=== PATIENT | male | born 1945 | race Caucasian/White ===

== ENCOUNTER → 2017-03-29 | Day surgery (SDC) | payer OTHER ==
[2017-03-23 13:07] VITALS: BMI 26.0
[~2017-03-29] VITALS: Ht 180.3 cm; Wt 87.3 kg
[~2017-03-29] MED LIST: ADVIN25/60 INH; ASPCH81X PO; ATOR-26 PO; EpHEDrine SULFATE 50MG/5ML SYR ONE; LIDOCAINE HCL 2% 2 ML VIAL (20MG/ML) ONE; METO50TA7 PO; MIDAZOLAM HCL 1 MG/ML 2ML VIAL ONE; OLME1TAB11 PO; ONDANSETRON INJ 2 MG/ML 2 ML VIAL IV PRN; PRLSR20 PO; PROPOFOL IV EMULSION 10 MG/ML 20 ML VIAL IV ONE; SODIUM CHLORIDE 0.9% 500ML 500 ML IV ONE
[2017-03-29 08:18] VITALS: Ht 180.3 cm; Wt 87.3 kg
--- NOTE | 2017-03-29 08:29 | Endo History and Physical ---
History & Physical Date of Service: Mar 29, 2017. Chief Complaint: SCREENING FOR COLON CANCER Referring Physician: DR DURHAM History of Present Illness Patient presents for screening colonoscopy. He reports his last examination was between 5 and 10 years ago. He was referred for routine exam. He denies having any symptoms there is no family history of colon cancer no prior history of colonic polyps. Past Surgical History Hx Cardiac Surgery: Yes (HEART CATH-1 STENTS) Hx Internal Defibrillator: No Hx Pacemaker: No Hx Abdominal Surgery: Yes (RT/LEFT INGUINAL HERNIA, UMBILICAL HERNIA) Hx of Implantable Prosthesis: No Hx Post-Op Nausea and Vomiting: No Hx Cancer Surgery: No Hx Thoracic Surgery: No Hx Orthopedic: No Hx Urinary Tract Surgery: No Bilateral inguinal hernia repair Ventral hernia repair Family History None Social History Smoking Status: Former Smoker Hx Substance Use: No Hx Alcohol Use: Yes (DAILY 700ML HARD ALCHOLOL (DOES NOT DRINK ENTIRE BOTTLE)) Allergies Coded Allergies: Sulfa Antibiotics (Verified Allergy, Unknown, TOLD A CHILD TO NOT USE, 03/23/17) Current Medications Reported Home Medications Medications Dose Route/Sig Max Daily Dose Days Date Category Advair Diskus 250/50 60 Dose (Fluticasone Prop/Salmeterol) 1 Ea Aerp 1 Puff INH BID 03/23/17 Reported Aspirin Chewable (Aspirin) 81 Mg Chew 81 Mg PO QAM 03/23/17 Reported Benicar (Olmesartan Medoxomil) 20 Mg Tab 20 Mg PO QAM 03/23/17 Reported Prilosec (Omeprazole) 20 Mg Capcr 20 Mg PO QAM 03/23/17 Reported Toprol-Xl (Metoprolol Succinate) 50 Mg Tabcr 50 Mg PO QAM 03/23/17 Reported Lipitor (Atorvastatin Calcium) 80 Mg Tab 80 Mg PO QAM 03/23/17 Reported Vital Signs Weight (Kilograms): 87.27 Height (Feet): 5 Height (Inches): 11 Date Time Temp Pulse Resp B/P (MAP) Pulse Ox O2 Delivery O2 Flow Rate FiO2 03/29/17 08:20 36.5 70 20 136/82 (100) 94 Room Air Physical Exam General Appearance: no apparent distress Respiratory/Chest: Auscultation: deminished air movement Cardiovascular: Heart Auscultation: RRR Abdomen: Inspection & Palpation: soft Assessment and Plan Patient for routine colorectal cancer screening. We have discussed risks and benefits to include bleeding, infection, perforation, and missed colonic polyps.
--- NOTE | 2017-03-29 08:31 | Discharge Instructions ---
Endoscopy Patient Instructions Date / Procedure(s) Performed Mar 29, 2017. Colonoscopy Allergy Information Coded Allergies: Sulfa Antibiotics (Verified Allergy, Unknown, TOLD A CHILD TO NOT USE, 03/23/17) Discharge Date / Findings Mar 29, 2017. Diverticulosis of the colon Internal and external hemorrhoids Medication Instructions Stopped Medication(s): ASPIRIN -LAST DOSE 03/28/17 Restart Stopped Medication(s): Reported Home Medications Medications Dose Route/Sig Max Daily Dose Days Date Category Advair Diskus 250/50 60 Dose (Fluticasone Prop/Salmeterol) 1 Ea Aerp 1 Puff INH BID 03/23/17 Reported Aspirin Chewable (Aspirin) 81 Mg Chew 81 Mg PO QAM 03/23/17 Reported Benicar (Olmesartan Medoxomil) 20 Mg Tab 20 Mg PO QAM 03/23/17 Reported Prilosec (Omeprazole) 20 Mg Capcr 20 Mg PO QAM 03/23/17 Reported Toprol-Xl (Metoprolol Succinate) 50 Mg Tabcr 50 Mg PO QAM 03/23/17 Reported Lipitor (Atorvastatin Calcium) 80 Mg Tab 80 Mg PO QAM 03/23/17 Reported Provider Instructions Activity Restrictions - No exercising or heavy lifting for 24 hours. - Do not drink alcohol the day of the procedure. - Do not drive a car or operate machinery until the day after the procedure. - Do not make any important decisions or sign important papers in 24 hours after the procedure. Following Day: - Return to full activity which may include returning to work/school. Diet Start your diet with liquids and light foods (jello, soup, juice, toast). Then eat your usual diet if not nauseated. Treatment For Common After Affects For mild abdominal pain, bloating, or excessive gas: - Rest - Eat lightly - Lie on right side Follow-Up Information repeat colonoscopy in 5 years due to suboptimal preparation Daily fiber supplement (fiber gummies) Anesthesia Information What You Should Know You have had a procedure that required some medicine to reduce anxiety and discomfort. This treatment is called moderate sedation. After receiving the treatment, you may be sleepy, but you will be able to breathe on your own. The effects of the treatment may last for several hours. Follow these instructions along with Activity/Diet recommendations noted above: * Do NOT do anything where dizziness or clumsiness would be dangerous. * Rest quietly at home today, then you can be up and about tomorrow. * Have a responsible person stay with you the rest of today. * You may have had an I.V. today. If so, you may take the dressing off later today. Recommendations Call your doctor if: * Trouble breathing * Continuous vomiting for more than 24 hours * Temperature above 101 degrees * Severe abdominal pain or bloating * Pain not relieved by pain medicine ordered * There is increased drainage or redness from any incision * A large amount of rectal bleeding greater than 2-3 tablespoons. (If you had a polyp/s removed or have hemorrhoids, a small amount of blood - from the rectum is to be expected.) * You have any unanswered questions or concerns. IN THE EVENT OF A SERIOUS EMERGENCY, GO TO THE NEAREST EMERGENCY ROOM Your discharge instructions were prepared by provider Dell Knott. Patient Instructions Signature Page Sunil Guthrie Patient (or Guardian) Signature/Date: I have read and understand the instructions given to me by my caregivers. Caregiver/RN/Doctor Signature/Date: The above-named patient and/or guardian has received patient instructions on this date. + Original Patient Signature Page (only) stays with chart. Please make copy for patient.
--- NOTE | 2017-03-29 09:46 | GI REPORT ---
Procedure Date: 03/29/2017 8:22 AM Procedure: Colonoscopy Indications: Screening for colorectal malignant neoplasm Medicines: Monitored Anesthesia Care Complications: No immediate complications. Estimated blood loss: Minimal. Estimated Blood Loss: Estimated blood loss was minimal. Procedure: Pre-Anesthesia Assessment: - Prior to the procedure, a History and Physical was performed, and patient medications, allergies and sensitivities were reviewed. The patient's tolerance of previous anesthesia was reviewed. - The risks and benefits of the procedure and the sedation options and risks were discussed with the patient. All questions were answered and informed consent was obtained. - Patient identification and proposed procedure were verified prior to the procedure by the physician, the nurse and the unix developer. The procedure was verified in the procedure room. - Pre-procedure physical examination revealed no contraindications to sedation. - ASA Grade Assessment: III - A patient with severe systemic disease. - After reviewing the risks and benefits, the patient was deemed in satisfactory condition to undergo the procedure. - The anesthesia plan was to use monitored anesthesia care (MAC). - Immediately prior to administration of medications, the patient was re-assessed for adequacy to receive sedatives. - The heart rate, respiratory rate, oxygen saturations, blood pressure, adequacy of pulmonary ventilation, and response to care were monitored throughout the procedure. - The physical status of the patient was re-assessed after the procedure. After I obtained informed consent, the scope was passed under direct vision. Throughout the procedure, the patient's blood pressure, pulse, and oxygen saturations were monitored continuously. The Scope was introduced through the anus and advanced to the cecum, identified by appendiceal orifice and ileocecal valve. The patient tolerated the procedure well. The colonoscopy was unusually difficult due to multiple diverticula in the colon. Successful completion of the procedure was aided by withdrawing and reinserting the scope, withdrawing the scope and replacing with the pediatric colonoscope, straightening and shortening the scope to obtain bowel loop reduction and applying abdominal pressure. The patient tolerated the procedure well. The quality of the bowel preparation was adequate to identify polyps 6 mm and larger in size. Findings: The perianal and digital rectal examinations were normal. Pertinent negatives include normal sphincter tone. Multiple small and large-mouthed diverticula were found in the entire colon. Internal hemorrhoids were found during retroflexion. The hemorrhoids were mild. The exam was otherwise without abnormality. Impression: - Severe diverticulosis in the entire examined colon. - Internal hemorrhoids. - The examination was otherwise normal. - No specimens collected. Recommendation: - Discharge patient to home (ambulatory). - Advance diet as tolerated today. - Use fiber, for example Citrucel, Fibercon, Konsyl or Metamucil. - Repeat colonoscopy in 5 years for screening purposes. Dell Knott D.O. Dell Knott, 03/29/2017 9:45:39 AM This report has been signed electronically. Note Initiated On: 03/29/2017 8:22 AM I attest to the content of the Intraoperative Record and orders documented therein, exceptions below
--- NOTE | 2017-03-29 09:58 | Anesthesiology Progress Note ---
Anesthesia Post Op Note Date & Time Mar 29, 2017 at 09:58 Vital Signs Pain Intensity: 0 Vital Signs Past 12 Hours Date Time Temp Pulse Resp B/P (MAP) Pulse Ox O2 Delivery O2 Flow Rate FiO2 03/29/17 09:41 72 16 110/67 (81) 96 Room Air 03/29/17 08:20 36.5 70 20 136/82 (100) 94 Room Air Notes Mental Status: alert / awake / arousable, participated in evaluation Pt Amnestic to Procedure: Yes Nausea / Vomiting: adequately controlled Pain: adequately controlled Airway Patency, RR, SpO2: stable & adequate BP & HR: stable & adequate Hydration State: stable & adequate Anesthetic Complications: no major complications apparent
[2017-03-29 10:11] VITALS: BP 126/84; PULSE 60; O2SAT 95
== END | disposition home or self-care (01) ==
LOC: C.GI 07:54
PROVIDERS: ATTEND Internal Medicine Gastroenterology
DX: Z12.11 Encounter for screening for malignant neoplasm of colon (principal); K57.90 Diverticulosis of intestine, part unspecified, without perforation or abscess without bleeding; K64.8 Other hemorrhoids; I10 Essential (primary) hypertension; I25.2 Old myocardial infarction; Z68.26 Body mass index [BMI] 26.0-26.9, adult; Z98.890 Other specified postprocedural states; Z87.891 Personal history of nicotine dependence; Z88.2 Allergy status to sulfonamides; Z79.899 Other long term (current) drug therapy

== ENCOUNTER 2019-08-18 16:04 | Inpatient (IN) ==
[2019-08-18] MEDS ORDERED: SODIUM CHLORIDE 0.9% 500 ML IV ONE (16:29)
[2019-08-18] MEDS ORDERED: methylPREDNISolone 125 MG/2 ML VIAL IV STA (16:32)
[2019-08-18] MEDS ORDERED: ALBUT/IPRATROP 3MG/0.5MG NEB 3 ML VIAL NEB STA ×2 (16:32→23:22)
--- NOTE | 2019-08-18 16:40 | Emergency Department Note ---
ED Provider Note NAME: PRISCILA COCHRAN AGE: 74 SEX: M ARRIVES VIA: Ambulance INFORMANT: [Patient] and ED PROVIDER(S): [Priscila Daley MD] CHIEF COMPLAINT: Shortness of breath IMPRESSION: Bilateral pulmonary emboli Elevated troponin Hypoxia PLAN: Disposition: Admitted Condition: Guarded MEDICAL DECISION MAKING: The patient is a 74-year-old male that presented with shortness of breath and hypoxia. 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 Patient had 3 NG tube. He had several days in the ICU. He had increasing oxygen requirements and was noted to be as low as 83% at his rehab nursing facility. The patient had increased work of breathing on physical examination. He had a full sepsis and cardiopulmonary work-up performed. The patient was given a DuoNeb and Solu-Medrol due to his COPD history. Supplemental oxygen was applied. He had a chest x-ray performed and this was concerning for bibasilar infiltrates. Blood cultures and broad- spectrum antibiotics were initiated. The patient had a mildly elevated troponin as well. ECG did not show any acute ischemic change. The patient was sent for CT imaging due to his increased work of breathing and concerns with a recent hospitalization. This revealed bilateral pulmonary emboli. IV heparin was discussed with the patient and and ordered. Consultation was made with Dr. Burroughs of the hospitalist service. The patient was evaluated in the ER and admitted for further treatment. Triage Nursing notes reviewed and agree them. [Additional history obtained from] the patient's Vital Signs: reviewed and remarkable for [no significant abnormalities] Differential diagnosis: Reactive airway disease, pneumonia, pneumothorax, COPD, CHF, infections, cardiac ischemia, pulmonary embolism, musculoskeletal, gastrointestinal, as well as other pathologies. ER treatment provided: Normal saline hydration Supplemental oxygen DuoNeb Solu-Medrol IV IV vancomycin IV Zosyn IV heparin drip Repacking and dressing of abdominal wound Diagnostics interpreted by me: ECG: Rate: 93 Rhythm: Normal sinus rhythm with sinus arrhythmia [place]: Normal QRS: Right bundle branch block present ST segements: No ST elevation or depression Other: No PVCs Cardiac Monitoring: Cardiac monitoring ordered: The patient was placed on continuous cardiac monitoring and observed. It revealed a normal sinus rhythm at 75 without ectopy or evidence of dysrhythmia. Laboratory studies: [See below] mild leukocytosis and elevated troponin. Negative flu testing. Blood cultures pending. Imaging studies: Chest x-ray concerning for bibasilar infiltrate. CT imaging revealed bilateral pulmonary emboli Consultation(s): Dr. Destiny Burroughs of the [facility] Hospitalist service. HPI: The patient is a 74 year old male who presents to the Emergency Room with complaints of shortness of breath and dyspnea. This started 2 days ago and is worsening. The patient also notes the following associated symptoms, mild cough. The patient has been increasing his oxygen for relieving factors. Current pain is rated as 0/10. 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 He notes having several days in the ICU as well as 3 separate NG tube placement. The patient's oxygen requirements and increased work of breathing developed over the last 2 days. He does have a history of COPD. Pt denies LOC, headache, fevers, chills, diaphoresis, visual changes, neck pain, chest pain, nausea, vomiting, abdominal pain, back pain, melena, hematochezia, urinary symptoms, numbness, weakness, lymphadenopathy, rash, or other complaints. ROS: See above HPI for pertinent positives & negatives. A total of [10] systems reviewed and were otherwise negative. PAST MEDICAL HISTORY:COPD PAST SURGICAL HISTORY:Bowel resection, [place] FAMILY HISTORY:[See Below] SOCIAL HISTORY: HOME MEDICATIONS:[See Below] ALLERGIES:[See Below] VITALS:[See Below] PHYSICAL EXAMINATION: GENERAL: Awake, alert, dyspneic -appearing, in no distress HENT: Normocephalic, atraumatic. Oropharynx unremarkable. EYES: Normal conjunctiva. Sclera non-icteric. NECK: Inspection normal. Non-tender. Supple. No nuchal rigidity. FROM. No masses. RESPIRATORY: Clear to auscultation. No wheezes. No rales. Increased respiratory effort. CARDIAC: Normal rate. Normal rhythm. No murmurs. No rubs. Extremities warm and well perfused. Pulses equal. No JVD. GI: Soft, non-distended. No tenderness to palpation. No rebound or guarding. No masses. There is an midline incision present. Open packed areas present. No purulent drainage or surrounding erythema. RECTAL: Deferred. MUSCULOSKELETAL: Atraumatic. Chest examination reveals no tenderness. The back is symmetrical on inspection without obvious abnormality. There is no CVA tenderness to palpation. No joint edema. LOWER EXTREMITIES: Calves are equal size bilaterally and non-tender. No edema. No discoloration. NEURO: Normal sensorium. No sensory or motor deficits noted. SKIN: No rash or jaundice noted. ED COURSE: Procedures: [none] [Critical Care:] I have personally spent greater than 45 minutes of critical care time in the direct management of this patient. This includes bedside care, interpretation of diagnostic studies, and testing, discussion with consultants, patient, and family members, and other required patient management activities. This 45 min utes is in excess of all separately billable procedures. Impression & Plan Pulmonary embolism, Hypoxia, Elevated troponin I level, Leukocytosis Past Med/Surg History Social History Preferred Language: [place] Communication Ability: Effective Beliefs That Will Affect Care: None Current Living Situation: Spouse Feels Safe at Home: Yes Smoking Status: Former smoker Second Hand Exposure: No ; Hx Alcohol Use: Yes Alcohol type: wine Hx Substance Use: No Results & Data Vital Signs Vital Signs - 24 hr 08/18/19 16:18 08/18/19 16:31 08/18/19 16:34 Temperature 36.8 C Temperature Source Oral Pulse Rate 105 H Pulse Rate [Right Radial] Respiratory Rate 18 Respiratory Effort / Characteristics Spontaneous Labored Short of Breath SOB on Exertion Respiratory Depth Shallow Respiratory Pattern Blood Pressure 131/83 Blood Pressure [Left Arm] Blood Pressure Mean 99 Blood Pressure Mean [Left Arm] Blood Pressure Position Lying Blood Pressure Position [Left Arm] Pulse Oximetry 95 Oxygen Delivery Method Nasal Cannula Nasal Cannula Nasal Cannula Oxygen Flow Rate 6 6 Sepsis Recent Fever Within 48 Hours No Sepsis Action Taken by Nursing No Action Required Oxygen Flow Rate - Titration 6 08/18/19 16:54 08/18/19 17:59 Temperature Temperature Source Pulse Rate Pulse Rate [Right Radial] 101 H 92 H Respiratory Rate 22 18 Respiratory Effort / Characteristics Spontaneous Non-Labored Spontaneous Respiratory Depth Normal Respiratory Pattern Regular Blood Pressure Blood Pressure [Left Arm] 157/84 H Blood Pressure Mean Blood Pressure Mean [Left Arm] 108 Blood Pressure Position Blood Pressure Position [Left Arm] Lying Pulse Oximetry 88 L 95 Oxygen Delivery Method Nasal Cannula Nasal Cannula Oxygen Flow Rate 5 4 Sepsis Recent Fever Within 48 Hours Sepsis Action Taken by Nursing Oxygen Flow Rate - Titration Laboratory Data Result diagrams: 08/18/19 16:53 08/18/19 16:53 Lab Results 08/18/19 08/18/19 08/18/19 Range/Units 16:53 16:53 16:53 WBC 12.34 H (4.8-10.8) K/uL RBC 3.84 L (4.7-6.1) M/uL Hgb 12.3 L (14.0-18.0) g/dL Hct 38.2 L (42-52) % MCV 99.5 (80-100) fL MCH 32.0 (25-34) pg MCHC 32.2 (32-36) g/dL RDW Std Deviation 50.9 H (36.4-46.3) fL RDW Coeff of Beata 14.2 (11.5-14.5) % Plt Count 368 (130-400) K/uL MPV 11.0 H (7.4-10.4) fL Immature Gran % (Auto) 0.3 % Neut % (Auto) 68.9 % Lymph % (Auto) 16.5 % [place] % (Auto) 8.2 % Eos % (Auto) 5.7 % Baso % (Auto) 0.4 % Immature Gran # (Auto) 0.04 H (0.00-0.02) K/uL Neut # (Auto) 8.51 H (1.4-6.5) K/uL Lymph # (Auto) 2.03 (1.2-3.4) K/uL [place] # (Auto) 1.01 H (0.11-0.59) K/uL Eos # (Auto) 0.70 H (0-0.5) K/uL Baso # (Auto) 0.05 (0-0.2) K/uL PT 11.8 (9.0-12.0) Seconds INR 1.1 (0.9-1.1) APTT 25.1 (21.0-31.0) Seconds PTT Ratio 0.9 Sodium (136-145) mmol/L Potassium (3.5-5.1) mmol/L Chloride (98-107) mmol/L Carbon Dioxide (21-32) mmol/L Anion Gap (3-11) BUN (7-18) mg/dl Creatinine (0.6-1.4) mg/dl Est Cr Clr Drug Dosing ml/min Est GFR ( Amer) Est GFR (Non-Af Amer) BUN/Creatinine Ratio (10-20) Glucose (70-99) mg/dl Lactate (0.4-2.0) mmol/L Calcium (8.5-10.1) mg/dl Magnesium (1.8-2.4) mg/dl Total Bilirubin (0.2-1) mg/dl AST (15-37) U/L ALT (12-78) U/L Alkaline Phosphatase (45-117) U/L Troponin I (0-0.045) ng/ml NT-Pro-B Natriuret Pep (0-900) pg/ml Total Protein (6.4-8.2) gm/dl Albumin (3.4-5.0) gm/dl Globulin (2.5-4.0) gm/dl Albumin/Globulin Ratio (0.9-2) Procalcitonin < 0.05 (0-0.5) ng/ml Influenza Type A (PCR) (Neg) Influenza Type B (PCR) (Neg) 08/18/19 08/18/19 08/18/19 Range/Units 16:53 16:53 Unknown WBC (4.8-10.8) K/uL RBC (4.7-6.1) M/uL Hgb (14.0-18.0) g/dL Hct (42-52) % MCV (80-100) fL MCH (25-34) pg MCHC (32-36) g/dL RDW Std Deviation (36.4-46.3) fL RDW Coeff of Beata (11.5-14.5) % Plt Count (130-400) K/uL MPV (7.4-10.4) fL Immature Gran % (Auto) % Neut % (Auto) % Lymph % (Auto) % [place] % (Auto) % Eos % (Auto) % Baso % (Auto) % Immature Gran # (Auto) (0.00-0.02) K/uL Neut # (Auto) (1.4-6.5) K/uL Lymph # (Auto) (1.2-3.4) K/uL [place] # (Auto) (0.11-0.59) K/uL Eos # (Auto) (0-0.5) K/uL Baso # (Auto) (0-0.2) K/uL PT (9.0-12.0) Seconds INR (0.9-1.1) APTT (21.0-31.0) Seconds PTT Ratio Sodium 143 (136-145) mmol/L Potassium 3.5 (3.5-5.1) mmol/L Chloride 110 H (98-107) mmol/L Carbon Dioxide 28 (21-32) mmol/L Anion Gap 5.0 (3-11) BUN 12 (7-18) mg/dl Creatinine 0.83 (0.6-1.4) mg/dl Est Cr Clr Drug Dosing 85.7 ml/min Est GFR ( Amer) 101.9 Est GFR (Non-Af Amer) 87.9 BUN/Creatinine Ratio 14.5 (10-20) Glucose 101 H (70-99) mg/dl Lactate 0.9 (0.4-2.0) mmol/L Calcium 8.5 (8.5-10.1) mg/dl Magnesium 2.0 (1.8-2.4) mg/dl Total Bilirubin 0.6 (0.2-1) mg/dl AST 26 (15-37) U/L ALT 49 (12-78) U/L Alkaline Phosphatase 135 H (45-117) U/L Troponin I 0.229 H* (0-0.045) ng/ml NT-Pro-B Natriuret Pep 536 (0-900) pg/ml Total Protein 7.4 (6.4-8.2) gm/dl Albumin 2.5 L (3.4-5.0) gm/dl Globulin 4.9 H (2.5-4.0) gm/dl Albumin/Globulin Ratio 0.5 L (0.9-2) Procalcitonin (0-0.5) ng/ml Influenza Type A (PCR) Neg for Influ A (Neg) Influenza Type B (PCR) Neg for Influ B (Neg) Administered Medications Vancomycin HCl 1,750 mg/ (Sodium Chloride) 535 mls @ 200 mls/hr IV NOW ONE Stop: 08/18/19 20:16 Last Admin: 08/18/19 18:38 Dose: 200 mls/hr Documented by: [id number] Heparin Sodium/Dextrose (Heparin Sodium/Dextrose) 25,000 units in 500 mls @ 0.02 mls/hr IV .Q24H [facility]; Protocol Stop: 09/17/19 18:14 Last Admin: 08/18/19 18:40 Dose: 1,400 units/hr, 28 mls/hr Documented by: [id number] Cosigned by: [id number] Ioversol (Optiray 320 125ml) 119 ml IV ONCE PRN PRN Reason: Interaction Checking Stop: 08/22/19 17:47 Last Admin: 08/18/19 17:49 Dose: 119 ml Documented by: [id number] Discontinued Medications Albuterol (Duoneb) 3 ml NEB NOW STA Stop: 08/18/19 16:33 Last Admin: 08/18/19 16:51 Dose: 3 ml Documented by: [id number] Heparin Sodium/Dextrose () 1 ea N/A NOW STA; Protocol Stop: 08/18/19 18:14 Last Admin: 08/18/19 18:40 Dose: 1 ea Documented by: [id number] Sodium Chloride (Nss) 500 mls @ 999 mls/hr IV .Q31M ONE Stop: 08/18/19 16:59 Last Infusion: 08/18/19 17:40 Dose: 0 mls/hr Documented by: [id number] Admin: 08/18/19 17:00 Dose: 999 mls/hr Documented by: [id number] Piperacillin Sod/Tazobactam Sod (Zosyn) 4.5 gm in 120 mls @ 240 mls/hr IV NOW ONE Stop: 08/18/19 18:05 Last Infusion: 08/18/19 18:45 Dose: 0 mls/hr Documented by: [id number] Admin: 08/18/19 18:13 Dose: 240 mls/hr Documented by: [id number] Methylprednisolone (Solumedrol) 125 mg IV NOW STA Stop: 08/18/19 16:33 Last Admin: 08/18/19 17:24 Dose: 125 mg Documented by: [id number] Discharge Plan Visit Data Chief Complaint: Shortness of Breath/Dyspnea Stated Complaint: SOB ED Provider: Priscila Daley Discharge Problem: Pulmonary embolism, Hypoxia, Elevated troponin I level, Leukocytosis Forms Stand Alone Forms: My [employer] Prescriptions Prescriptions: No Action atorvastatin [Lipitor] 80 mg tablet 80 mg PO HS RF: 0 metoprolol succinate [Toprol XL] 50 mg tablet extended release 24 hr 50 mg PO QAM RF: 0 aspirin 81 mg Tablet,Delayed Release (Dr/Ec) 81 mg PO QAM RF: 0 omeprazole 20 mg capsule,delayed release(DR/EC) 20 mg PO QAM RF: 0 olmesartan [Benicar] 20 mg tablet 20 mg PO QAM RF: 0 Anoro Ellipta 62.5-25 mcg/actuation blister with device 1 inh INHALATION QAM RF: 0 acetaminophen 325 mg Tablet 650 mg PO QID PRN (Reason: Pain) RF: 0 piperacillin-tazobactam [Zosyn] 4.5 gram Recon Soln 4.5 g IV TID RF: 0 albuterol sulfate 90 mcg/actuation Hfa Aerosol Inhaler 2 puff INHALATION Q6 PRN (Reason: Shortness Of Breath Or Wheezing) RF: 0 sodium chloride 0.9 % (flush) Syringe 10 ml IV Q8H RF: 0 heparin lock flush (porcine) 100 unit/mL Solution 0 unit IV Q8 RF: 0
--- NOTE | 2019-08-18 16:54 | XRay Report ---
XR chest 1V portable CLINICAL HISTORY: SEPSIS dyspnea COMPARISON STUDY: 07/19/2019 FINDINGS: PICC catheter placed in the right superior vena cava. No evidence for pneumothorax. Bibasilar atelectatic change. Emphysematous change. IMPRESSION: 1. Central catheter placed in the superior vena cava. No evidence for pneumothorax. Bibasilar atelect atic and/or minimal infiltrative change. ACT 112: Negative or not required by law. The above report was generated using voice recognition software. It may contain grammatical, syntax or spelling errors. Electronically signed by: Nitin Hill M.D. 08/18/2019 4:52 PM
[2019-08-18 17:01] LABS: Basophils # (auto) 0.05 K/uL (0-0.2); Basophils % (auto) 0.4 %; Eosinophils % (auto) 5.7 %; Hematocrit (blood only) 38.2 % (42-52); Hemoglobin 12.3 g/dL (14.0-18.0); Immature Granulocytes # (auto) 0.04 K/uL (0.00-0.02); Immature Granulocytes % (auto) 0.3 %; Lymphocytes # (auto) 2.03 K/uL (1.2-3.4); Lymphocytes % (auto) 16.5 %; Mean Corpuscular Hgb Conc 32.2 g/dL (32-36); Mean Corpuscular Volume 99.5 fL (80-100); Monocytes # (auto) 1.01 K/uL (0.11-0.59); Monocytes % (auto) 8.2 %; Neutrophils # (auto) 8.51 K/uL (1.4-6.5); Neutrophils % (auto) 68.9 %; Platelet Count 368 K/uL (130-400); RDW Coefficient of Variation 14.2 % (11.5-14.5); RDW Standard Deviation 50.9 fL (36.4-46.3); Red Blood Count 3.84 M/uL (4.7-6.1); White Blood Count 12.34 K/uL (4.8-10.8)
[2019-08-18 17:11] LABS: INR 1.1 (0.9-1.1); Partial Thromboplastin Ratio 0.9; Partial Thromboplastin Time 25.1 Seconds (21.0-31.0); Prothrombin Time 11.8 Seconds (9.0-12.0)
[2019-08-18 17:19] LABS: Albumin Level 2.5 gm/dl (3.4-5.0); BUN Creatinine Ratio 14.5 (10-20); Calcium 8.5 mg/dl (8.5-10.1); Creatinine Clr Calc Pharmacy 85.7 ml/min; Est GFR (African American) 101.9; Est GFR (Non-African American) 87.9; Potassium 3.5 mmol/L (3.5-5.1)
[2019-08-18 17:29] LABS: Albumin Globulin Ratio 0.5 (0.9-2); Bilirubin,Total 0.6 mg/dl (0.2-1); Globulin 4.9 gm/dl (2.5-4.0); Total Protein 7.4 gm/dl (6.4-8.2); Troponin I 0.229 ng/ml (0-0.045)
[2019-08-18] MEDS ORDERED: VANCOMYCIN CONSULT ACTIVE PRN (17:36)
[2019-08-18] MEDS ORDERED: VANCOMYCIN HCL 1,750 MG in SODIUM CHLORIDE 0.9% 500 ML IV ONE (17:36)
[2019-08-18] MEDS ORDERED: PIPERACILL/TAZOBAC CONSULT ACTIVE PRN ×2 (17:36→20:24)
[2019-08-18] MEDS ORDERED: PIPERACILLIN/TAZOBACTAM 4.5 GM/120 ML BAG IV ONE (17:36)
[2019-08-18 17:39] LABS: Influenza A virus by PCR Neg for Influ A (Neg); Influenza B virus by PCR Neg for Influ B (Neg)
[2019-08-18] MEDS ORDERED: OPTIRAY 320 125ml IV PRN (17:48)
--- NOTE | 2019-08-18 18:02 | CT Scan Report ---
CT angio chest PE protocol CT DOSE: 393.73 mGy.cm HISTORY: Dyspnea SOB, hypoxia, recent surg x2, ICU stay. Hi pretest TECHNIQUE: Multiaxial CT images of the chest were performed following the intravenous administration of contrast to evaluate the pulmonary arteries. Maximal intensity projection images were also obtaine d. A dose lowering technique was utilized adhering to the principles of ALARA. COMPARISON STUDY: None. FINDINGS: The thoracic aorta shows mild ectasia. The root of the aorta is slightly prominent at 4.1 c m. There are bilateral pulmonary emboli. These involve the lower lobe distributions bilaterally and to a lesser extent left upper lobe. There are bibasilar atelectatic and/or infiltrative changes. Emphysematous change is present. Mid and upper lungs are considered clear. There is no evidence for main or central pulmonary embolus. There is involvement of the head and prox imal left lower lobe as well as left upper lobe pulmonary arteries. IMPRESSION: 1. The study is positive for bilateral acute pulmonary emboli. 2. Emphysematous change. 3. Bibasilar atelectatic/infiltrative change. ACT 112: Negative or not required by law. The above report was generated using voice recognition software. It may contain grammatical, syntax or spelling errors. Electronically signed by: Nitin Hill M.D. 08/18/2019 6:01 PM
[2019-08-18] MEDS ORDERED: HEPARIN SODIUM/DEXTROSE 25,000 UNITS/500 ML BAG IV SCH (18:15)
--- NOTE | 2019-08-18 19:46 | History & Physical Report ---
Date of Service August 18, 2019 Assessment & Plan (1) Pulmonary embolism: Bilateral PE after prolonged hospitalization and major abdominal surgery with complications. Heparin drip. Supportive care with oxygen. (2) Hypoxia: Secondary to bilateral PEs. CT reveals atelectatic versus infiltrative changes at the bases bilaterally. As the patient has been on broad-spectrum antibiotics recently and with recent abdominal surgery where he is frequently splinting and not moving much, suspect this is more atelectatic. Patient has been afebrile and developed a nonproductive cough just today. Do not suspect pneumonia, but will cover broadly upfront with the level of hypoxia that is present. Vancomycin will be added to Zosyn which is on board for recent treatment of peritonitis. Zosyn will be on board until 08/30 per ID at [facility]. Pharmacy is aware. (3) Elevated troponin I level: Likely demand ischemia in the setting of bilateral PE. EKG reveals sinus rhythm 93 with sinus arrhythmia and a right bundle branch block which is chronic. No evidence of acute ischemia and he denies chest pain. Will obtain echo to rule out acute wall motion abnormality. (4) Post-operative state: Recent complex operations to abdomen complicated by peritonitis infection. 2 open wounds remain in his vertical abdominal incision. These do not appear infected superficially. Wounds require daily packing with gauze. Blood cultures are pending. Again patient is afebrile and does not appear infectious at this time. He is not septic. Continue Zosyn per ID recommendations until 08/30. (5) COPD (chronic obstructive pulmonary disease): Known history of COPD, not in exacerbation. Moving air well on exam. Continue home inhalers. (6) CAD (coronary artery disease): Known history of coronary disease status post PCI. Stable and without chest pain. Suspect demand ischemia causing elevated troponin from pulmonary embolus. Will trend cardiac enzymes overnight. Continue medical management with baby aspirin, Lipitor 80 mg nightly, Toprol-XL 50 mg p.o. every morning, on losartan 20 mg p.o. every morning. (7) DVT prophylaxis: Heparin drip Full code [facility]position-[facility] (8) H/O inguinal hernia repair: History of Present Illness Chief Complaint: Shortness of breath worsening hypoxia Primary Care Provider: Delmar Alberto MD 74-year-old man recently operated on presented to [facility] ER with worsening shortness of breath and hypoxia. The patient was at [facility] recovering from a complicated abdominal surgery and 1 month at [facility]. 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 He was taken to the OR emergently for an exploratory laparotomy, ileocecal. 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 Postoperatively he developed an ileus and on 07/27 he underwent GG challenge, which showed ongoing dilated loops of small bowel. A repeat repeat CT of the abdomen pelvis on two 07/28 showed concern for early small bowel obstruction and persistent dilation of the small bowel. He was started on TPN. He was taken back to the OR on 08/03 for an exploratory laparotomy, lysis of adhesions and decompressive enterotomy. Postoperatively he developed acute hypoxic respiratory failure and hypotension was transferred to the ICU for close monitoring. He briefly required low-dose phenylephrine and was found to be RSV positive. He was stabilized and transferred back to the floor on . On 08/04 a rapid response was called secondary to altered mental status and hypoxia. He was transferred back to the ICU and placed on high flow nasal cannula. His respiratory status improved and he was weaned to 1 L nasal cannula. He had a return of bowel function and slowly was transitioned to a regular diet coming off of TPN. He developed a surgical wound infection at his incision site and the wound was left open to allow drainage and packed daily. He was evaluated for peritonitis and Zosyn IV was recommended until 08/30 by i nfectious disease. Rehabilitation was recommended and he was discharged on August 14 to [facility] here in [place]. Since that time he is required increasing amounts of oxygen and work-up this evening with a CT PE revealed evidence of a pulmonary embolus that is bilateral. He has no pain or swelling in his legs. He denies any chest pain. He is reporting some nonproductive cough with occasional production of sputum. He denies any fevers or chills. He denies any GI symptoms. He has no excessive pain in his abdomen. Allergies Allergy/AdvReac Type Severity Reaction Status Date / Time Sulfa (Sulfonamide Allergy Unknown TOLD A Verified 08/18/19 17:05 Antibiotics) CHILD TO NOT USE Home Medications Home Medications Medication Instructions Recorded Confirmed Type aspirin 81 mg PO QAM 07/19/19 08/18/19 History atorvastatin [Lipitor] 80 mg PO HS 07/19/19 08/18/19 History metoprolol succinate [Toprol XL] 50 mg PO QAM 07/19/19 08/18/19 History olmesartan [Benicar] 20 mg PO QAM 07/19/19 08/18/19 History omeprazole 20 mg PO QAM 07/19/19 08/18/19 History umeclidinium-vilanterol [Anoro 1 inh INHALATION QAM 07/19/19 08/18/19 History Ellipta] acetaminophen 650 mg PO QID PRN 08/18/19 08/18/19 History albuterol sulfate 2 puff INHALATION Q6 PRN 08/18/19 08/18/19 History heparin lock flush (porcine) 0 unit IV Q8 08/18/19 08/18/19 History piperacillin-tazobactam [Zosyn] 4.5 g IV TID 08/18/19 08/18/19 History sodium chloride 0.9 % (flush) 10 ml IV Q8H 08/18/19 08/18/19 History Past Med/Surg History Medical History (Updated 08/19/19 @ 07:44 by Destiny Burroughs DO) Acute respiratory failure with hypoxia CAD S/P percutaneous coronary angioplasty with stent placement Cecal volvulus COPD (chronic obstructive pulmonary disease) Dyslipidemia Hemorrhoids, internal with ligation in 06/2010 Hernia Thoracic aortic aneurysm Surgical History H/O hernia repair One surgery age 18 (right side), then another hernia repair to fix this area in 1997. H/O inguinal hernia repair History of exploratory laparotomy 07/20/2019-ileocecectomy, stapled side to side ileocolostomy, post op ileus. 08/03/2019-back to OR for ex lap, lysis of adhesions, and decompressive enterotomy. 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 Normal conjunctivae, no scleral icterus ENT: external ear and nose normal, oropharynx clear, MMM RESPIRATORY: clear to auscultation bilaterally, no crackles, rales or wheezes, normal respiratory effort CARDIOVASCULAR: regular rate and rhythm, S1 and 2 heard without murmurs, gallops or rubs, no JVD, no peripheral edema GASTROINTESTINAL: normal bowel sounds, soft, nontender, nondistended, 2 open abdominal wounds that are packed with gauze saturated with a serous fluid. Minimal bleeding and no pus was seen no surrounding erythema ahmet are clean and wound is closed with ahmet. The abdominal incision is a vertical incision sites in the central abdomen. He has an abdominal binder around this. MUSCULOSKELETAL: strength 5/5 throughout, head is normocephalic and atraumatic SKIN: warm and dry, wound as above. NEUROLOGIC: No facial palsy, no dysarthria. CN 2-12 grossly intact, normal cognition, normal speech, no gross focal deficits. PSYCHIATRIC: alert cooperative and oriented to person, place and time. Results & Data Vital Signs (Past 12 Hours) Vital Signs Temp Pulse Pulse Resp BP BP Pulse Ox 08/18/19 19:23 99 H 18 157/84 H 93 08/18/19 17:59 92 H 18 157/84 H 95 08/18/19 16:54 101 H 22 88 L 08/18/19 16:18 36.8 C 105 H 18 131/83 95 Laboratory Results Short CBC 08/18/19 Range/Units 16:53 WBC 12.34 H (4.8-10.8) K/uL Hgb 12.3 L (14.0-18.0) g/dL Hct 38.2 L (42-52) % Plt Count 368 (130-400) K/uL BMP 08/18/19 16:53 Sodium 143 Potassium 3.5 Chloride 110 H Carbon Dioxide 28 BUN 12 Creatinine 0.83 Glucose 101 H Calcium 8.5 Cardiac Enzymes 08/18/19 Range/Units 16:53 Troponin I 0.229 H* (0-0.045) ng/ml Liver Function 08/18/19 Range/Units 16:53 Total Bilirubin 0.6 (0.2-1) mg/dl AST 26 (15-37) U/L ALT 49 (12-78) U/L Alkaline Phosphatase 135 H (45-117) U/L Albumin 2.5 L (3.4-5.0) gm/dl Medications Administered Heparin bolus and drip Vancomycin Zosyn Solu-Medrol 125 mg IV x1 500 cc x 1 Albuterol 3 mL neb x 1 Code Status & VTE Plan Code Status full code VTE Prophylaxis Plan VTE Prophylaxis will be ordered: Yes
--- NOTE | 2019-08-18 19:47 | Emergency Department Note ---
ED Visit Note I was asked to repack the patient's 2 abdominal wounds. Consent was obtained. The wound was sterilely prepped and draped. I removed both of the wound packings. There was granulation tissue noted with some small biofilm but no evidence of overt infection. I then placed sterile packing into both wounds. Sterile gauze and then ABD pads were placed. A new abdominal binder was then placed. Patient was happy with repacking. Questions were answered. .
[2019-08-18] MEDS: HEPARIN SODIUM/DEXTROSE 25,000 UNITS/500 ML BAG IV SCH (20:15)
[2019-08-18] MEDS ORDERED: ALBUTEROL HFA 8 GM INHALER INH PRN (20:24)
[2019-08-18] MEDS ORDERED: POLYETHYLENE (MIRALAX) 17 GM PACK PO PRN (20:24)
[2019-08-18] MEDS ORDERED: ACETAMINOPHEN 325 MG TAB PO PRN (20:24)
[2019-08-18] MEDS ORDERED: Heparin IV Standard *NO* Bolus IV SCH (20:30)
--- NOTE | 2019-08-18 20:52 | Pharmacy Report ---
Pharmacy Abx Dose Short Note - Date of Service August 18, 2019 - Assessment & Plan Assessment 74 year old M presented with shortness of breath secondary to b/l pulmonary embolism * The patient was at [facility] recovering from a complicated abdominal surgery and 1 month at [facility] * Currently on zosyn for treatment of peritonitis (continue through 08/30 per [facility] service) * Vancomycin added for lung coverage. MRSA nasal swab pending Plan Vancomycin * Patient meets criteria for vancomycin AUC dosing nomogram * AUC/MARYJO is the preferred PK/PD target for vancomycin Target AUC/MARYJO = 400-600 AUC guided dosing is effective and associated with decreased risk of nephrotoxicity * Start 1000 mg (12 mg/kg) IV q8h * Trough level ordered for 08/19 @ 0330 Zosyn * continue 4.5g IV q8h (extended infusion) for CrCl > 20 mL/min Pharmacy will continue to follow and will adjust dose/frequency as necessary. Thank you.
[2019-08-18] MEDS ORDERED: PIPERACILLIN/TAZOBACTAM SOD 4.5 GM VIAL IV SCH (21:00)
[2019-08-18] MEDS ORDERED: ATORVASTATIN 40 MG TAB PO SCH (21:00)
[2019-08-18] MEDS ORDERED: Nursing to Pharmacy Communication ONE (22:05)
[2019-08-18] MEDS ORDERED: ATROPINE SULFATE 0.1 MG/ML 10ML SYR IV STA (23:18)
--- NOTE | 2019-08-18 23:19 | Communication Note ---
Date of Service: August 18, 2019 Made aware by RN episodic bradycardia commencing at 10:30 PM at PCU and more frequently noted at Ultrasound room. Cardiac rate 30s, SBP 120s. Upon return to PCU, patient noted by RN to be increasingly somnolent. Episodic apneic spells. O2 sats 80s on 6 L Patient denies chest pain. Shortness of breath better as per patient. PPE : Episodic lethargy, tachypneic, raspy respiration Tachycardic, no obvious murmurs Decreased breath sounds Abdominal distention Chest x-ray as per my interpretation : Atelectasis, right infiltrate CT head initial read: No acute intracranial hemorrhage AP Worsening hypoxemic respiratory failure ? COPD exacerbation secondary to HCAP/apiration pneumonia ? Underlying MICHEL ? Bradycardia secondary to respiratory illness Rule out primary bradyarrhythmia NIPPV Baseline ABG Aspiration precautions Continue Zosyn Additional Solu-Medrol for possible COPD exacerbation, nebs RTC Outpatient sleep study Appropriate to hold beta-rupinder for now given episodic bradycardia. Atropine as needed symptomatic bradycardia Pulmonology and Cardiology consultations in a.m. if okay with AM provider.
[2019-08-18] MEDS ORDERED: ATROPINE SULFATE 0.1 MG/ML 10ML SYR IV PRN (23:30)
[2019-08-18] MEDS ORDERED: XOPENEX/ATROVENT 1.25mg/0.5MG NEB COMBO NEB SCH (23:40)
[2019-08-18] MEDS ORDERED: methylPREDNISolone 40 MG in SYRINGE 0 ML IV ONE (23:45)
[2019-08-18] MEDS ORDERED: MAGNESIUM SULFATE / D5W 1 GM/100 ML BAG IV ONE (23:45)
[2019-08-19 00:01] LABS: Base Excess ABG 1.6 mEq/L (-9-1.8); HCO3 ABG 26 mmol/L (19-24); Oxygen Saturation ABG 80.6 % (90-95); PCO2 ABG 39 mmHg (35-46); PO2 ABG 46 mmHg (80-95); pH ABG 7.44 (7.35-7.45)
[2019-08-19 00:02] LABS: Allen Test POS (Pos)
[2019-08-19] MEDS: LEVALBUTEROL 1.25MG/0.5ML NEB INH SCH ×4 (00:04→19:51)
[2019-08-19] MEDS: IPRATROPIUM BROMIDE NEB SOLN 0.02% 2.5 ML VIAL INH SCH ×4 (00:04→19:51)
[2019-08-19 00:28] LABS: Calcium 8.4 mg/dl (8.5-10.1); Creatinine Clr Calc Pharmacy 93.6 ml/min; Est GFR (African American) 105.6; Est GFR (Non-African American) 91.1; Potassium 3.7 mmol/L (3.5-5.1)
[2019-08-19 00:31] LABS: Partial Thromboplastin Ratio 1.3; Partial Thromboplastin Time 36.6 Seconds (21.0-31.0)
[2019-08-19 00:44] LABS: Thyroid Stimulating Hormone 1.42 uIu/ml (0.300-4.500); Troponin I 0.159 ng/ml (0-0.045)
[2019-08-19] MEDS: PIPERACILLIN/TAZOBACTAM 4.5 GM in DEXTROSE 5% 100 ML IV SCH ×3 (01:52→16:37)
[2019-08-19] MEDS ORDERED: HEPARIN IV BOLUS 6,000 UNITS in SYRINGE 0 ML IV ONE (02:00)
[2019-08-19 02:12] LABS: Partial Thromboplastin Ratio 2.1
[2019-08-19 02:13] LABS: Partial Thromboplastin Time 58.4 Seconds (21.0-31.0)
[2019-08-19] MEDS ORDERED: VANCOMYCIN HCL 1,000 MG in SODIUM CHLORIDE 0.9% 250 ML IV SCH (04:00)
[2019-08-19 04:21] LABS: Appearance Urine Clear (Clear); Bacteria Urine Automated Negative (Negative); Bilirubin Urine Negative (Negative); Blood Urine Negative (Negative); Color Urine Yellow; Glucose Urine UA Trace (Negative); Ketones Urine Trace (Negative); Leukocyte Esterase Urine Negative (Negative); Nitrite Urine Negative (Negative); Protein Urine Trace (Negative); RBC Urine Automated 0-4 /hpf (0-4); Specific Gravity Urine > 1.045 (1.000-1.030); Urobilinogen Urine Negative (Negative)
[2019-08-19 05:54] LABS: Hematocrit (blood only) 33.5 % (42-52); Hemoglobin 10.8 g/dL (14.0-18.0); Mean Corpuscular Hemoglobin 31.3 pg (25-34); Mean Corpuscular Hgb Conc 32.2 g/dL (32-36); Mean Corpuscular Volume 97.1 fL (80-100); Mean Platelet Volume 11.3 fL (7.4-10.4); Platelet Count 333 K/uL (130-400); RDW Coefficient of Variation 14.2 % (11.5-14.5); RDW Standard Deviation 50.8 fL (36.4-46.3); Red Blood Count 3.45 M/uL (4.7-6.1); White Blood Count 6.61 K/uL (4.8-10.8)
[2019-08-19 06:23] LABS: BUN Creatinine Ratio 15.5 (10-20); Calcium 8.5 mg/dl (8.5-10.1); Creatinine Clr Calc Pharmacy 106.1 ml/min; Est GFR (African American) 111.3; Potassium 3.5 mmol/L (3.5-5.1)
[2019-08-19 06:47] LABS: Troponin I 0.128 ng/ml (0-0.045)
--- NOTE | 2019-08-19 06:50 | Ultrasound Report ---
US venous doppler LE BI CLINICAL HISTORY: bilateral PE COMPARISON STUDY: No previous studies for comparison. FINDINGS: Grayscale, color flow, and spectral Doppler evaluation was performed. On the right, no thrombus was visualized in the common femoral, superficial femoral, or popliteal vei ns. The proximal trifurcation veins of the calf appear patent. On the left, no thrombus is visualized in the common femoral or superficial femoral veins. There was thrombus present with the distal popliteal vein and posterior tibial and peroneal veins. IMPRESSION: 1. Left leg DVT with involvement of the distal popliteal, posterior tibial, and peroneal veins. 2. No evidence of right lower extremity DVT ACT 112: Negative or not required by law. Electronically signed by: Job Oviedo M.D. 08/19/2019 6:48 AM
--- NOTE | 2019-08-19 06:57 | XRay Report ---
XR chest 1V portable CLINICAL HISTORY: sob COMPARISON STUDY: 08/18/2019 FINDINGS: The cardiac and mediastinal contours remain stable. There is pulmonary emphysema. There is a right-sided PICC catheter unchanged in position. There are persistent bibasilar opacities, statisti jovita atelectatic.[ IMPRESSION: No significant change from the prior study. Persistent bibasilar opacities, statistically atelectatic ACT 112: Negative or not required by law. Electronically signed by: Job Oviedo M.D. 08/19/2019 6:55 AM
--- NOTE | 2019-08-19 07:12 | CT Scan Report ---
CT head/brain wo con CLINICAL HISTORY: Acute change in mental status COMPARISON STUDY: No previous studies for comparison. TECHNIQUE: Axial CT of the brain is performed from the vertex to the skull base. IV contrast was not administered for this examination. A dose lowering technique was utilized adhering to the principles of ALARA. CT DOSE: 614.27 mGy.cm FINDINGS: No intra or extra-axial mass lesions are visualized. There is no CT evidence of acute cortical infarc tion. There is no evidence of midline shift. There is no acute hemorrhage. No calvarial fractures ar e visualized. There are minor white matter hypodensities likely on a small vessel basis. There is no evidence of pathologic ventricular dilatation. There is no evidence of acute sinusitis IMPRESSION: No acute intracranial findings ACT 112: Negative or not required by law. Electronically signed by: Job Oviedo M.D. 08/19/2019 7:10 AM
[2019-08-19] MEDS: OLMESARTAN MEDOXOMIL 20 MG TAB PO SCH (07:45)
[2019-08-19] MEDS: PANTOprazole 40 MG TAB PO SCH (07:46)
[2019-08-19] MEDS: ASPIRIN 81 MG ECTAB PO SCH (07:46)
[2019-08-19] MEDS: ATORVASTATIN 40 MG TAB PO SCH (07:46)
[2019-08-19] MEDS: UMECLIDINIUM/VILANTEROL 62.5/25MCG 7 PUFFS/INHALER INH SCH (07:47)
[2019-08-19 08:15] LABS: Partial Thromboplastin Time 138.4 Seconds (21.0-31.0)
[2019-08-19 09:00] LABS: Partial Thromboplastin Ratio > 5.0
[2019-08-19] MEDS ORDERED: METOPROLOL SUCC 50MG EXT REL TAB PO SCH (09:00)
[2019-08-19 09:08] LABS: Partial Thromboplastin Time > 139.0 Seconds (21.0-31.0)
[2019-08-19 11:10] LABS: Partial Thromboplastin Time 54.6 Seconds (21.0-31.0)
--- NOTE | 2019-08-19 11:40 | Cardiology Consultation ---
Date of Consultation August 19, 2019 Assessment & Plan (1) Bradycardia: Asymptomatic bradycardia, noted transient sinus bradycardia and junctional rhythm. Perhaps related to high vagal tone, coughing. Check echo for RV strain. Stable at present. He is on no AV taylor blockers. Chronic coronary heart disease: Remote circumflex territory myocardial infarction, 2004. Continue aspirin, losartan, atorvastatin. Bilateral pulmonary embolism, left lower extremity DVT: Agree with anticoagulation with UF heparin to coumadin or DOAC such as lovenox. Monitor Hgb. Echocardiogram has been requested for assessment of biventricular function. Significant oxygen requirement. Has underlying COPD. Pulmonary medicine has been consulted to help with optimizing his respiratory status. He certainly appears to be at risk for progressive respiratory insufficiency. Troponin above reference range: Mildly elevated troponin, likely due to RV strain in the setting of hypoxia, pulmonary embolism. Doubt this is due to intracoronary plaque rupture. Mild aortic root dilatation on non gated CTA PE protocol, 4.1 cm. Echocardiogram to assess valve structure and function. History of Present Illness Attending Physician: Destiny Burroughs, History of Present Illness Sunil Guthrie is a 74 year old male seen in cardiology consultation per the request of Dr Burroughs for the evaluation of intermitted bradycardia. The patient has a complex recent history as well summarized in Dr. Burroughs's admission history and physical. He had a prolonged hospital stay last month at [facility] after having initially presented to [facility] for right lower quadrant abdominal pain with findings of a cecal volvulus on CT imaging. He underwent emergent abdominal surgery and return to the operating room 08/03/2019 for exploratory laparotomy, lysis of adhesions and decompressive enterotomy. Postoperatively he developed hypoxic respiratory failure requiring ICU level care. Ultimately he was discharged to [facility] where he has been receiving IV Zosyn which is tentatively planned to be administered until 08/31/2019 having been diagnosed with a surgical wound infection and peritonitis. He presented via the emergency room at [facility] yesterday with increasing oxygen requirement. CT angiogram performed yesterday revealed significant emphysema, atelectasis, and bilateral acute pulmonary emboli were noted. The aortic root was noted to be mildly dilated with measurement of 4.1 cm. A lower extremity venous Doppler revealed left leg DVT in the distal popliteal vein and the posterior tibial and peroneal veins. He is currently in room 220. He had been treated with unfractionated heparin, which is currently on hold due to an elevated PTT reading. At present, he states he is more comfortable than what he was when he was transferred to the hospital yesterday, but he notes ongoing cough. He has a significant oxygen requirement receiving an FiO2 of 40%, 30 L/min of high flow oxygen to maintain a pulse oximetry reading of 93%. Last night at 2345, sinus bradycardia in the range of 37-40 beats per minute was noted prompting treatment with 0.5 mg of atropine. He also has had several brief episodes of junctional bradycardia most recent of which took place at 10 AM this morning and was 40 bpm. On reassessment, sinus rhythm in the range of 70 to 80 bpm was noted. With no evidence of high-grade AV block. There was also a 5 beat run of supraventricular tachycardia noted at 2:34 AM. Social History: Retired from the [employer]. Moved from [place] to [place] in 2012. Former smoker x 40 years. Cardiac History: Histor of CAD, patient recalls that he was at his vacation home in [facility] on 09/29/2003 when he developed acute onset chest discomfort. He was transferred from a local hospital to [facility] in [place], [place] and underwent emergent cardiac catheterization per his recollection and he believes he had a stent to the circumflex coronary artery. He had been followed by cardiology in [place] for years and was told that he had "no residual heart damage ". He has not followed with cardiology since moving to [place] in 2012. Allergies Allergy/AdvReac Type Severity Reaction Status Date / Time Sulfa (Sulfonamide Allergy Unknown TOLD A Verified 08/18/19 17:05 Antibiotics) CHILD TO NOT USE Home Medications Home Medications Medication Instructions Recorded Confirmed Type aspirin 81 mg PO QAM 07/19/19 08/18/19 History atorvastatin [Lipitor] 80 mg PO HS 07/19/19 08/18/19 History metoprolol succinate [Toprol XL] 50 mg PO QAM 07/19/19 08/18/19 History olmesartan [Benicar] 20 mg PO QAM 07/19/19 08/18/19 History omeprazole 20 mg PO QAM 07/19/19 08/18/19 History umeclidinium-vilanterol [Anoro 1 inh INHALATION QAM 07/19/19 08/18/19 History Ellipta] acetaminophen 650 mg PO QID PRN 08/18/19 08/18/19 History albuterol sulfate 2 puff INHALATION Q6 PRN 08/18/19 08/18/19 History heparin lock flush (porcine) 0 unit IV Q8 08/18/19 08/18/19 History piperacillin-tazobactam [Zosyn] 4.5 g IV TID 08/18/19 08/18/19 History sodium chloride 0.9 % (flush) 10 ml IV Q8H 08/18/19 08/18/19 History Patient History Medical History Acute respiratory failure with hypoxia CAD S/P percutaneous coronary angioplasty with stent placement Cecal volvulus COPD (chronic obstructive pulmonary disease) Dyslipidemia Hemorrhoids, internal with ligation in 06/2010 Hernia Thoracic aortic aneurysm Surgical History H/O hernia repair One surgery age 18 (right side), then another hernia repair to fix this area in 1997. H/O inguinal hernia repair History of exploratory laparotomy 07/20/2019-ileocecectomy, stapled side to side ileocolostomy, post op ileus. 08/03/2019-back to OR for ex lap, lysis of adhesions, and decompressive enterotomy. S/P partial colectomy 07/20/2019, with anastomosis Family History Other Melanoma Social History Preferred Language: Maltese Communication Ability: Effective Histology Specialist Required: No Beliefs That Will Affect Care: None marital status: Current Living Situation: Spouse Other Information That Helps Us Care for You: No Feels Safe at Home: Yes Safety Concerns: Feels Safe At This Time Smoking Status: Former smoker Second Hand Exposure: No ; Hx Alcohol Use: No Hx Substance Use: No Review of Systems Review of Systems: All systems reviewed & are unremarkable except as noted in HPI & below Physical Exam Physical Exam: Temp Pulse Resp BP Pulse Ox 36.5 C 75 20 101/64 92 08/19/19 10:55 08/19/19 10:55 08/19/19 10:55 08/19/19 10:55 08/19/19 10:55 Constitutional: Chronically ill in appearance Respiratory: + labored breathing and + cough Auscultation: + diminished lung sounds (Diminished breath sounds at bases bilaterally) Cardiovascular: RRR, no murmur, no edema Gastrointestinal (Abdomen): Abdominal binder, exam not performed Neurologic: PERRL, EOMI, accommodation nl, no face palsy, no dysarthria Results & Data ([facility]) Vital Signs (Past 12 Hours) Vital Signs Temp Pulse Pulse Resp BP Pulse Ox 08/19/19 10:55 36.5 C 75 20 101/64 92 08/19/19 08:00 71 08/19/19 07:23 77 18 92 08/19/19 07:08 36.4 C L 70 20 118/72 91 08/19/19 03:41 94 H 22 93 08/19/19 02:46 36.7 C 79 22 110/80 90 08/19/19 02:41 89 20 92 08/19/19 02:05 89 21 97 08/18/19 23:58 107 H 12 85 L Laboratory Results Cardiac Enzymes 08/18/19 08/18/19 08/19/19 Range/Units 16:53 23:49 05:34 AST 26 (15-37) U/L Troponin I 0.229 H* 0.159 H* 0.128 H* (0-0.045) ng/ml Coagulation 08/18/19 08/19/19 08/19/19 Range/Units 16:53 00:08 01:46 PT 11.8 (9.0-12.0) Seconds APTT 25.1 36.6 H 58.4 H* (21.0-31.0) Seconds 08/19/19 08/19/19 08/19/19 Range/Units 07:29 08:26 10:25 PT (9.0-12.0) Seconds APTT 138.4 H* > 139.0 H* 54.6 H* (21.0-31.0) Seconds CBC 08/18/19 08/19/19 Range/Units 16:53 05:34 WBC 12.34 H 6.61 (4.8-10.8) K/uL RBC 3.84 L 3.45 L (4.7-6.1) M/uL Hgb 12.3 L 10.8 L (14.0-18.0) g/dL Hct 38.2 L 33.5 L (42-52) % Plt Count 368 333 (130-400) K/uL Neut # (Auto) 8.51 H (1.4-6.5) K/uL Lymph # (Auto) 2.03 (1.2-3.4) K/uL [place] # (Auto) 1.01 H (0.11-0.59) K/uL Eos # (Auto) 0.70 H (0-0.5) K/uL Baso # (Auto) 0.05 (0-0.2) K/uL Comprehensive Metabolic Panel 08/18/19 08/18/19 08/19/19 Range/Units 16:53 23:49 05:34 Sodium 143 142 141 (136-145) mmol/L Potassium 3.5 3.7 3.5 (3.5-5.1) mmol/L Chloride 110 H 110 H 110 H (98-107) mmol/L Carbon Dioxide 28 25 27 (21-32) mmol/L BUN 12 11 10 (7-18) mg/dl Creatinine 0.83 0.76 0.67 (0.6-1.4) mg/dl Glucose 101 H 175 H 176 H (70-99) mg/dl Calcium 8.5 8.4 L 8.5 (8.5-10.1) mg/dl AST 26 (15-37) U/L ALT 49 (12-78) U/L Alkaline Phosphatase 135 H (45-117) U/L Total Protein 7.4 (6.4-8.2) gm/dl Albumin 2.5 L (3.4-5.0) gm/dl Intake and Output 08/18/19 08/19/19 08/19/19 22:59 06:59 14:59 Intake Total 1439.333 / 2084.266 644.933 / 2084.266 222.700 / 222.700 Output Total 0 / 250 250 / 250 Balance 1439.333 / 1834.266 394.933 / 1834.266 222.700 / 222.700 Intake: IV 1199.333 / 1844.266 644.933 / 1844.266 222.700 / 222.700 HEPARIN SODIUM/DEXTROSE 25,000 44.333 / 199.266 154.933 / 199.266 222.700 / 222.700 units In 500 ml @ 1,700 UNITS/ HR 34 mls/hr IV .[id number] [facility] Rx #:[id number] MAGNESIUM SULFATE / D5W 1 gm In 100 / 100 100 ml @ 100 mls/hr IV ONE ONE Rx#:[id number] ZOSYN 4.5 gm In 120 ml @ 240 120 / 120 mls/hr IV NOW ONE Rx#:[id number] Zosyn 4.5 gm In D5 100 ml @ 30 120 / 120 mls/hr IV Q8H [facility] Rx#:[id number] Nss 500 ml @ 999 mls/hr IV . 500 / 500 Q31M ONE Rx#:[id number] Vancomycin HCl 1,000 mg In Nss 270 / 270 250 ml @ 125 mls/hr IV Q8H [facility] Rx#:[id number] Vancomycin HCl 1,750 mg In Nss 535 / 535 500 ml @ 200 mls/hr IV NOW ONE Rx#:[id number] Oral 240 / 240 Output: Urine 0 / 250 250 / 250 Stool 0 / 0 Emesis 0 / 0 Other: Weight 82.4 kg 83 kg Diagnostic Findings EKG performed 08/18/2019 revealed normal sinus rhythm at 93 bpm with right bundle branch block EKG performed 08/19/2019 sinus rhythm at 97 bpm with nonspecific lateral repolarization changes. Medications Administered Current Inpatient Medications Acetaminophen (Tylenol) 650 mg PO Q4H PRN PRN Reason: Pain or Fever Stop: 09/17/19 20:23 Aspirin (Ecotrin Ectab) 81 mg PO [facility] Stop: 09/18/19 08:59 Last Admin: 08/19/19 07:46 Dose: 81 mg Documented by: Atorvastatin Calcium (Lipitor) 80 mg PO [facility] Stop: 09/18/19 08:59 Last Admin: 08/19/19 07:46 Dose: 80 mg Documented by: Atropine Sulfate (Atropine Sulfate) 0.5 mg IV Q3M PRN PRN Reason: SYMPTOMATIC BRADYCARDIA Stop: 09/17/19 23:29 Heparin Sodium/Dextrose (Heparin Sodium/Dextrose) 25,000 units in 500 mls @ 29 mls/hr IV .[id number] [facility]; Protocol Stop: 09/17/19 20:44 Last Titration: 08/19/19 11:14 Dose: 1,450 units/hr, 29 mls/hr Documented by: Piperacillin Sod/Tazobactam (Sod 4.5 gm/ Dextrose) 120 mls @ 30 mls/hr IV Q8H [facility]; Protocol Stop: 08/31/19 23:59 Last Admin: 08/19/19 07:45 Dose: 30 mls/hr Documented by: Ioversol (Optiray 320 125ml) 119 ml IV ONCE PRN PRN Reason: Interaction Checking Stop: 08/22/19 17:47 Last Admin: 08/18/19 17:49 Dose: 119 ml Documented by: Ipratropium [place] (Atrovent 0.02% 0.5mg/2.5ml) 0.5 mg INH Q6R [facility] Stop: 09/18/19 00:59 Last Admin: 08/19/19 07:19 Dose: 0.5 mg Documented by: Levalbuterol HCl (Xopenex 1.25mg/0.5ml Neb) 1.25 mg INH Q6R [facility] Stop: 09/18/19 00:59 Last Admin: 08/19/19 07:19 Dose: 1.25 mg Documented by: Miscellaneous Information (Consult) 1 ea N/A UD PRN PRN Reason: Consult Stop: 09/17/19 20:23 Olmesartan (Benicar) 20 mg PO [facility] Stop: 09/18/19 08:59 Last Admin: 08/19/19 07:45 Dose: 20 mg Documented by: Pantoprazole Sodium (Protonix) 40 mg PO [facility] Stop: 09/18/19 08:59 Last Admin: 08/19/19 07:46 Dose: 40 mg Documented by: Polyethylene Glycol (Miralax Powder Packet) 17 gm PO DAILY PRN PRN Reason: Constipation Stop: 09/17/19 20:23 Umeclidinium/Vilanterol (Anoro Ellipta 62.5/25 Mcg Inh) 1 puffs INH [facility] Stop: 09/18/19 08:59 Last Admin: 08/19/19 07:47 Dose: 1 puffs Documented by:
--- NOTE | 2019-08-19 11:54 | Pulmonary Consultation ---
Date of Consultation August 19, 2019 Assessment & Plan (1) Pulmonary embolism: Patient with an acute provoked pulmonary embolism given his recent abdominal surgery. He can probably be switched to a novel oral anticoagulant tomorrow. He appears currently hemodynamically stable. His proBNP was not elevated. His troponin was very mildly elevated likely related to demand ischemia. Echocardiogram is pending. Cardiology consultation was obtained. I would not be surprised if he has some chronic degree of RV pathology related to his underlying COPD. Would recommend a course of 5 days of 40 mg p.o. prednisone. He has some atelectasis and likely some hypoxemia related to shunting from that as well in addition to his V/Q mismatch and obstructive lung disease. Recommend continuing him on his current inhaler regimen. He should follow-up with [facility] as an outpatient. I have weaned down his high flow nasal cannula to 25 L/min and 35% FiO2 and he appears to be tolerating this well. Saturations of 88 to 92% are acceptable. (2) Acute hypoxemic respiratory failure: (3) Elevated troponin I level: (4) COPD (chronic obstructive pulmonary disease): (5) Bradycardia: History of Present Illness Reason for Consultation: Acute hypoxemic respiratory failure with a pulmonary embolism Requesting Physician: Hospitalist Attending Physician: Destiny Burroughs DO History of Present Illness 74-year-old male with a past medical history of COPD, tobacco abuse, coronary artery disease and recent cecal volvulus and surgical repair in [facility] who subsequently developed hypoxic respiratory failure and ICU stay and was then discharged to [facility] for rehabilitation. Patient presented on 08/18/2019 and was found to have a left lower extremity DVT and bilateral pulmonary emboli with atelectasis. Overnight he apparently had some episodes of bradycardia and received atropine. Today he is on high flow nasal cannula and currently is on 30 L and 40% FiO2. I was able to wean him down to 25 L and 35% FiO2 with minimal change in dyspnea. He is saturating around 88%. He denies any current chest pain. He does have some ongoing abdominal pain from his surgery. He notes that he is normally able to ambulate as long as he wants without any issue. He says he walks faster than his . He quit smoking in 2003 after undergoing a heart attack. He smoked for 40 years roughly 1 pack/day. He denies any chronic cough. He is on Anoro Ellipta at home. He notes that he had a pulmonary function test years ago in [place] and was told that his lung function was around 45%. He is followed by inside finisher in [facility] Dr. Cueto. Patient is currently on a heparin drip, Zosyn for treatment of his abdominal surgical wound and received a dose of IV Solu-Medrol in the emergency department. Cardiology was consulted as well for his bradycardia and an echo is pending. Troponin was very mildly elevated to 0.229 but has plateaued. proBNP was within normal limits. Allergies Allergy/AdvReac Type Severity Reaction Status Date / Time Sulfa (Sulfonamide Allergy Unknown TOLD A Verified 08/18/19 17:05 Antibiotics) CHILD TO NOT USE Home Medications Home Medications Medication Instructions Recorded Confirmed Type aspirin 81 mg PO QAM 07/19/19 08/18/19 History atorvastatin [Lipitor] 80 mg PO HS 07/19/19 08/18/19 History metoprolol succinate [Toprol XL] 50 mg PO QAM 07/19/19 08/18/19 History olmesartan [Benicar] 20 mg PO QAM 07/19/19 08/18/19 History omeprazole 20 mg PO QAM 07/19/19 08/18/19 History umeclidinium-vilanterol [Anoro 1 inh INHALATION QAM 07/19/19 08/18/19 History Ellipta] acetaminophen 650 mg PO QID PRN 08/18/19 08/18/19 History albuterol sulfate 2 puff INHALATION Q6 PRN 08/18/19 08/18/19 History heparin lock flush (porcine) 0 unit IV Q8 08/18/19 08/18/19 History piperacillin-tazobactam [Zosyn] 4.5 g IV TID 08/18/19 08/18/19 History sodium chloride 0.9 % (flush) 10 ml IV Q8H 08/18/19 08/18/19 History Patient History Medical History Acute respiratory failure with hypoxia CAD S/P percutaneous coronary angioplasty with stent placement Cecal volvulus COPD (chronic obstructive pulmonary disease) Dyslipidemia Hemorrhoids, internal with ligation in 06/2010 Hernia Thoracic aortic aneurysm Surgical History H/O hernia repair One surgery age 18 (right side), then another hernia repair to fix this area in 1997. H/O inguinal hernia repair History of exploratory laparotomy 07/20/2019-ileocecectomy, stapled side to side ileocolostomy, post op ileus. 08/03/2019-back to OR for ex lap, lysis of adhesions, and decompressive enterotomy. S/P partial colectomy 07/20/2019, with anastomosis Family History Other Melanoma Social History Preferred Language: Chadian Communication Ability: Effective Advertising Analyst Required: No Beliefs That Will Affect Care: None marital status: Current Living Situation: Spouse Other Information That Helps Us Care for You: No Feels Safe at Home: Yes Safety Concerns: Feels Safe At This Time Smoking Status: Former smoker Second Hand Exposure: No ; Hx Alcohol Use: No Hx Substance Use: No Review of Systems Review of Systems: All systems reviewed & are unremarkable except as noted in HPI & below Physical Exam Constitutional: Patient is sitting up in bed. He has high flow nasal cannula in place. He is tachypneic. He is short of breath with sentences. Eyes: PERRL, conjunctivae normal, anicteric sclerae ENMT: external ear and nose normal, oropharynx normal Neck: normal visual inspection Respiratory: No significant wheezes. Diminished at the bases. Mildly tachypneic. Cardiovascular: RRR, no murmur, no edema Gastrointestinal (Abdomen): normal bowel sounds, soft, nontender, no hepatosplenomegaly Musculoskeletal: no cyanosis or clubbing, extremities motor strength 5/5 Skin: no rashes, warm and dry Neurologic: PERRL, EOMI, accommodation nl, no face palsy, no dysarthria Psychiatric: A+Ox3, euthymic affect Results & Data ([facility]) Vital Signs (Past 12 Hours) Vital Signs Temp Pulse Pulse Resp BP Pulse Ox 08/19/19 10:55 97.7 F 75 20 101/64 92 08/19/19 08:00 71 08/19/19 07:23 77 18 92 08/19/19 07:08 97.5 F L 70 20 118/72 91 08/19/19 03:41 94 H 22 93 08/19/19 02:46 98.1 F 79 22 110/80 90 08/19/19 02:41 89 20 92 08/19/19 02:05 89 21 97 08/18/19 23:58 107 H 12 85 L I personally reviewed the patient's labs, chest imaging and notes PG Care Time/CCT Total # of Minutes Spent Total Time Spent with Patient: Total time spent is greater than 50% in coordination of care (as documented) at patient's floor/unit and/or counseling patient: Coding Level of Care Code 63066 Initial Inpt Care Lvl 3 Diagnoses Pulmonary embolism I26.99 Acute hypoxemic respiratory failure J96.01 Elevated troponin I level R79.89 COPD (chronic obstructive pulmonary disease) J44.9 Bradycardia R00.1
--- NOTE | 2019-08-19 12:27 | Electrocardiogram Report ---
Test Reason : Blood Pressure : / mmHG Vent. Rate : 093 BPM Atrial Rate : 093 BPM P-R Int : 128 ms QRS Dur : 144 ms QT Int : 416 ms P-R-T Axes : 011 011 035 degrees QTc Int : 517 ms Normal sinus rhythm with sinus arrhythmia Right bundle branch block Abnormal ECG When compared with ECG of 19-JUL-2019 16:50, No significant change Confirmed by Devyn De Jesus ([id number]) on 08/19/2019 12:26:59 PM Referred By: Halima leonard [facility] Confirmed By:Devyn De Jesus
[2019-08-19] MEDS: HEPARIN SODIUM/DEXTROSE 25,000 UNITS/500 ML BAG IV SCH (14:31)
[2019-08-19] MEDS ORDERED: PERFLUTREN LIPID MICROSPHERE (DEFINITY) IV ONE (14:33)
[2019-08-19 17:37] LABS: Partial Thromboplastin Ratio 2.2
[2019-08-19 17:42] LABS: Partial Thromboplastin Time 61.5 Seconds (21.0-31.0)
--- NOTE | 2019-08-19 17:48 | Hospitalist Progress Note ---
Date of Service August 19, 2019 Assessment & Plan (1) Pulmonary embolism: Bilateral PE after prolonged hospitalization and major abdominal surgery with complications. Heparin drip. Supportive care with oxygen supplementation (2) Bradycardia: Asymptomatic, likely 2/2 acute PE. Hold beta rupinder for now until more stable. Cont telemetry monitoring. Consult Cardiology. (3) Hypoxia: Secondary to bilateral PEs. CT reveals atelectatic versus infiltrative changes at the bases bilaterally. As the patient has been on broad-spectrum antibiotics recently and with recent abdominal surgery where he is frequently splinting and not moving much, suspect this is more atelectatic. Patient has been afebrile and has no cough or chills. Do not suspect pneumonia, but will cover broadly upfront with the level of hypoxia that is present. Vancomycin was stopped as MRSA swab is negative. Zosyn will be on board until 08/30 per ID at [facility] for continued treatment of peritonitis. Pharmacy is aware. (4) Demand ischemia: Likely demand ischemia in the setting of bilateral PE, RV strain seen on echo supports this. (5) Post-operative state: Recent complex operations to abdomen complicated by peritonitis infection. Two open wounds remain in his vertical abdominal incision. These do not appear infected superficially. Wounds require daily packing with gauze. Blood cultures are pending. Again patient is afebrile and does not appear infectious at this time. He is not septic. Continue Zosyn per ID recommendations until 08/30. (6) COPD (chronic obstructive pulmonary disease): Known history of COPD, not in exacerbation. Moving air well on exam. Continue home inhalers. Prednisone 40mg x 5 days per pulmonology. (7) CAD (coronary artery disease): Known history of coronary disease status post PCI. Stable and without chest pain. Flat trend of cardiac enzymes overnight. Continue medical management with baby aspirin, Lipitor 80 mg nightly, Toprol-XL 50 mg p.o. every morning, on losartan 20 mg p.o. every morning. (8) H/O inguinal hernia repair: (9) DVT prophylaxis: Heparin drip Full code Disposition-cont monitoring in PCU. DO Teofilo [facility] Hospitalist Admission and Anticipated Discharge Date Admission Date: August 18, 2019 Anticipated date of discharge: 08/22/19 Subjective Overnight had symptomatic bradycardia likely from excessive clot burden/recent PE. Received atropine with improvement Beta rupinder on hold, remains on heparin drip Now on Vapotherm and doing well; couldn't tolerate BIPAP tried overnight Pt reports feeling suffocated. Questions regarding logistics later this week/follow-up for abdominal surgery, etc at bedside and was present and engaged in the visit. Review of Systems Review of Systems: All systems reviewed & are unremarkable except as noted in Subjective Physical Exam Physical Exam: CONSTITUTIONAL: WNWD, vitals as above, generally well- appearing. Minimal conversational dyspnea, which has improved overall. EYES: Normal conjunctivae, no scleral icterus ENT: external ear and nose normal, oropharynx clear, MMM, vapotherm canula in place RESPIRATORY: clear to auscultation bilaterally, no crackles, rales or wheezes, normal respiratory effort CARDIOVASCULAR: tacy rate and rhythm, S1 and 2 heard without murmurs, gallops or rubs, no JVD, no peripheral edema GASTROINTESTINAL: normal bowel sounds, soft, nontender, nondistended, Abdominal binder in place and secured so wounds were not directly visualized. Robson intact. MUSCULOSKELETAL: strength 5/5 throughout, head is normocephalic and atraumatic SKIN: warm and dry, wound as above. NEUROLOGIC: No facial palsy, no dysarthria. CN 2-12 grossly intact, normal cognition, normal speech, no gross focal deficits. PSYCHIATRIC: alert cooperative and oriented to person, place and time. Results & Data ([facility]) Vital Signs (Past 12 Hours) Vital Signs Temp Pulse Pulse Resp BP Pulse Ox 08/19/19 13:11 98 H 20 94 08/19/19 11:51 84 24 92 08/19/19 10:55 36.5 C 75 20 101/64 92 08/19/19 08:00 71 08/19/19 07:23 77 18 92 08/19/19 07:08 36.4 C L 70 20 118/72 91 Laboratory Results Short CBC 08/19/19 Range/Units 05:34 WBC 6.61 (4.8-10.8) K/uL Hgb 10.8 L (14.0-18.0) g/dL Hct 33.5 L (42-52) % Plt Count 333 (130-400) K/uL BMP 08/18/19 08/19/19 23:49 05:34 Sodium 142 141 Potassium 3.7 3.5 Chloride 110 H 110 H Carbon Dioxide 25 27 BUN 11 10 Creatinine 0.76 0.67 Glucose 175 H 176 H Calcium 8.4 L 8.5 Cardiac Enzymes 08/18/19 08/19/19 Range/Units 23:49 05:34 Troponin I 0.159 H* 0.128 H* (0-0.045) ng/ml Urine 08/19/19 Range/Units 03:43 Urine Color Yellow Urine Appearance Clear (Clear) Urine pH 5.0 (4.5-7.5) Ur Specific [place] > 1.045 H (1.000-1.030) Urine Protein Trace H (Negative) Urine Glucose (UA) Trace H (Negative) Medications Administered Current Inpatient Medications Acetaminophen (Tylenol) 650 mg PO Q4H PRN PRN Reason: Pain or Fever Stop: 09/17/19 20:23 Aspirin (Ecotrin Ectab) 81 mg PO [facility] Stop: 09/18/19 08:59 Last Admin: 08/19/19 07:46 Dose: 81 mg Documented by: Atorvastatin Calcium (Lipitor) 80 mg PO [facility] Stop: 09/18/19 08:59 Last Admin: 08/19/19 07:46 Dose: 80 mg Documented by: Atropine Sulfate (Atropine Sulfate) 0.5 mg IV Q3M PRN PRN Reason: SYMPTOMATIC BRADYCARDIA Stop: 09/17/19 23:29 Heparin Sodium/Dextrose (Heparin Sodium/Dextrose) 25,000 units in 500 mls @ 29 mls/hr IV .[id number] [facility]; Protocol Stop: 09/17/19 20:44 Last Titration: 08/19/19 17:43 Dose: 1,450 units/hr, 29 mls/hr Documented by: Piperacillin Sod/Tazobactam (Sod 4.5 gm/ Dextrose) 120 mls @ 30 mls/hr IV Q8H [facility]; Protocol Stop: 08/31/19 23:59 Last Admin: 08/19/19 16:37 Dose: 30 mls/hr Documented by: Ioversol (Optiray 320 125ml) 119 ml IV ONCE PRN PRN Reason: Interaction Checking Stop: 08/22/19 17:47 Last Admin: 08/18/19 17:49 Dose: 119 ml Documented by: Ipratropium [place] (Atrovent 0.02% 0.5mg/2.5ml) 0.5 mg INH Q6R [facility] Stop: 09/18/19 00:59 Last Admin: 08/19/19 13:09 Dose: 0.5 mg Documented by: Levalbuterol HCl (Xopenex 1.25mg/0.5ml Neb) 1.25 mg INH Q6R [facility] Stop: 09/18/19 00:59 Last Admin: 08/19/19 13:09 Dose: 1.25 mg Documented by: Miscellaneous Information (Consult) 1 ea N/A UD PRN PRN Reason: Consult Stop: 09/17/19 20:23 Olmesartan (Benicar) [facility] Stop: 09/18/19 08:59 Last Admin: 08/19/19 07:45 Dose: 20 mg Documented by: Pantoprazole Sodium (Protonix) 40 mg PO QAM [facility] Stop: 09/18/19 08:59 Last Admin: 08/19/19 07:46 Dose: 40 mg Documented by: Polyethylene Glycol (Miralax Powder Packet) 17 gm PO DAILY PRN PRN Reason: Constipation Stop: 09/17/19 20:23 Umeclidinium/Vilanterol (Anoro Ellipta 62.5/25 Mcg Inh) 1 puffs INH QAM [facility] Stop: 09/18/19 08:59 Last Admin: 08/19/19 07:47 Dose: 1 puffs Documented by:
--- NOTE | 2019-08-19 18:06 | Communication Note ---
Date of Service: August 19, 2019 Echocardiogarm reveals moderate right ventricular hypokinesis with moderate RV dilatation. The right ventricular hypokinesis spares the RV apex, consistent with pulmonary embolism, however given the patient's underlying lung disease it is difficult to determine what is known what is old. The patient is hemodynamically stable, most recent systolic blood pressure was still over 100 mmHg. Oxygen saturations are reasonably stable on high flow oxygen and given his current hemodynamic stability and recent complex intra- abdominal surgeries, my advice would be to reserve fibrinolytic therapy for if his clinical status deteriorates. Echo results and recommendations discussed with Dr Armenta by phone.
[2019-08-20] MEDS: PIPERACILLIN/TAZOBACTAM 4.5 GM in DEXTROSE 5% 100 ML IV SCH ×2 (00:21→07:44)
[2019-08-20] MEDS: LEVALBUTEROL 1.25MG/0.5ML NEB INH SCH ×4 (00:45→19:08)
[2019-08-20] MEDS: IPRATROPIUM BROMIDE NEB SOLN 0.02% 2.5 ML VIAL INH SCH ×4 (00:45→19:08)
[2019-08-20] MEDS ORDERED: VANCOMYCIN TROUGH ONE (03:30)
[2019-08-20 05:47] LABS: Hematocrit (blood only) 32.6 % (42-52); Hemoglobin 10.3 g/dL (14.0-18.0); Mean Corpuscular Hgb Conc 31.6 g/dL (32-36); Mean Corpuscular Volume 98.2 fL (80-100); Platelet Count 348 K/uL (130-400); RDW Coefficient of Variation 14.3 % (11.5-14.5); RDW Standard Deviation 51.3 fL (36.4-46.3); Red Blood Count 3.32 M/uL (4.7-6.1); White Blood Count 8.93 K/uL (4.8-10.8)
[2019-08-20 06:05] LABS: Partial Thromboplastin Ratio 2.8
[2019-08-20 06:17] LABS: Est GFR (African American) 98.5
[2019-08-20] MEDS: HEPARIN SODIUM/DEXTROSE 25,000 UNITS/500 ML BAG IV SCH ×2 (07:16→07:44)
[2019-08-20] MEDS: predniSONE 20 MG TAB PO SCH (07:45)
[2019-08-20] MEDS: ASPIRIN 81 MG ECTAB PO SCH (07:45)
[2019-08-20] MEDS: UMECLIDINIUM/VILANTEROL 62.5/25MCG 7 PUFFS/INHALER INH SCH (07:45)
[2019-08-20] MEDS: PANTOprazole 40 MG TAB PO SCH (07:45)
[2019-08-20] MEDS: OLMESARTAN MEDOXOMIL 20 MG TAB PO SCH (07:46)
[2019-08-20] MEDS: ATORVASTATIN 40 MG TAB PO SCH (07:46)
--- NOTE | 2019-08-20 09:39 | Hospitalist Progress Note ---
Date of Service August 20, 2019 Assessment & Plan (1) Pulmonary embolism: Provoked bilateral pulmonary embolism Bilateral PE after prolonged hospitalization and major abdominal surgery with complications as mentioned in history and physical Has been on Heparin drip. Supportive care with oxygen supplementation Likely start oral anticoagulation soon (2) Bradycardia: Likely secondary to vagal stimulation Asymptomatic, Cont telemetry monitoring. Consult Cardiology. (3) Hypoxia: Secondary to bilateral PEs. CT reveals atelectatic versus infiltrative changes at the bases bilaterally. As the patient has been on broad-spectrum antibiotics recently and with recent abdominal surgery Suspect atelectatic changes and doubt any pneumonia vancomycin was stopped as MRSA swab is negative. Zosyn will be continued till 30 August.pharmacy is aware. (4) Demand ischemia: Likely demand ischemia in the setting of bilateral PE, RV strain seen on echo supports this. Doubt any ACS (5) Post-operative state: Recent complex operations to abdomen complicated by peritonitis infection documented as in history and physical Two open wounds remain in his vertical abdominal incision. Again patient is afebrile and does not appear infectious at this time. He is not septic. Continue Zosyn per ID recommendations until 08/30. (6) COPD (chronic obstructive pulmonary disease): Known history of COPD, not in exacerbation. Lungs clear Will continue home inhalers. Prednisone 40mg x 5 days per pulmonology. (7) CAD (coronary artery disease): Known history of coronary disease status post PCI. Stable and without chest pain. Flat trend of cardiac enzymes overnight. Continue medical management with baby aspirin, Lipitor 80 mg nightly, Toprol-XL 50 mg p.o. every morning, on losartan 20 mg p.o. every morning. (8) H/O inguinal hernia repair: (9) DVT prophylaxis: Heparin drip Full code Disposition-cont monitoring in PCU. Admission and Anticipated Discharge Date Admission Date: August 18, 2019 Anticipated date of discharge: 08/22/19 Subjective The patient was seen and examined in telemetry unit in presence of the He has pain almost bedbound since 30 July of this year when he underwent valvular surgery in [place] He was admitted from rehab with acute shortness of breath and noted to have bilateral pulmonary embolism He has been feeling a little bit better today and complains to have phlegm in the throat and generalized weakness Denies any significant abdominal pain, nausea no vomiting, and shortness of breath has been improving Review of Systems Review of Systems: All systems reviewed and are unremarkable except as noted below Constitutional: + fatigue, + weakness and + anorexia Respiratory: + dyspnea (Minimal dyspnea at rest) Gastrointestinal: no bloating, no nausea and no vomiting Physical Exam Physical Exam: Lying in bed comfortably with weakness and fatigue Constitutional: well developed, well nourished, + acute distress (Minimal shortness of breath with cough at rest) and + ill appearing Eyes: PERRL, conjunctivae normal, anicteric sclerae ENMT: external ear and nose normal, oropharynx normal Neck: trachea midline, no thyromegaly Respiratory: + respiratory distress (Minimal respiratory distress) and + uses accessory muscles Auscultation: lungs clear to auscultation bilaterally and + diminished lung sounds Cardiovascular: Rate/Rhythm: regular rate and regular rhythm Heart Sounds: no murmur Extremities: no edema Gastrointestinal (Abdomen): Inspection/Auscultation: abdomen normal to inspection and normal bowel sounds Percussion/Palpation: + abdomen tender (Mildly tender) and abdomen soft Musculoskeletal: No acute arthritis in any joints Neurologic: Alert, awake and oriented x3, generally very weak but no focal neuro deficit Lymphatic: no cervical or axillary lymphadenopathy Results & Data ([facility]) Vital Signs (Past 12 Hours) Vital Signs Temp Pulse Pulse Resp BP Pulse Ox 08/20/19 08:00 36.8 C 69 105 H 18 110/65 95 08/20/19 07:24 73 20 94 08/20/19 07:23 73 20 94 08/20/19 03:11 105 H 20 92 08/20/19 02:58 36.7 C 82 24 113/71 90 08/20/19 00:45 87 16 91 08/19/19 23:13 36.5 C 87 16 109/67 91 08/19/19 22:40 87 22 95 Laboratory Results Short CBC 08/20/19 Range/Units 05:12 WBC 8.93 (4.8-10.8) K/uL Hgb 10.3 L (14.0-18.0) g/dL Hct 32.6 L (42-52) % Plt Count 348 (130-400) K/uL BMP 08/20/19 05:12 Creatinine 0.90 Medications Administered Current Inpatient Medications Acetaminophen (Tylenol) 650 mg PO Q4H PRN PRN Reason: Pain or Fever Stop: 09/17/19 20:23 Aspirin (Ecotrin Ectab) 81 mg PO QAM [facility] Stop: 09/18/19 08:59 Last Admin: 08/20/19 07:45 Dose: 81 mg Documented by: Atorvastatin Calcium (Lipitor) 80 mg PO QAM [facility] Stop: 09/18/19 08:59 Last Admin: 08/20/19 07:46 Dose: 80 mg Documented by: Atropine Sulfate (Atropine Sulfate) 0.5 mg IV Q3M PRN PRN Reason: SYMPTOMATIC BRADYCARDIA Stop: 09/17/19 23:29 Heparin Sodium (Beef Lung) (Heparin Sod 10 Unit/Ml Flush) 5 ml FLUSH PRN PRN PRN Reason: Flush Stop: 09/19/19 00:46 Heparin Sodium/Dextrose (Heparin Sodium/Dextrose) 25,000 units in 500 mls @ 26 mls/hr IV .[id number] [facility]; Protocol Stop: 09/17/19 20:44 Last Admin: 08/20/19 07:44 Dose: 1,300 units/hr, 26 mls/hr Documented by: Piperacillin Sod/Tazobactam (Sod 4.5 gm/ Dextrose) 120 mls @ 30 mls/hr IV Q8H [facility]; Protocol Stop: 08/31/19 23:59 Last Admin: 08/20/19 07:44 Dose: 30 mls/hr Documented by: Ioversol (Optiray 320 125ml) 119 ml IV ONCE PRN PRN Reason: Interaction Checking Stop: 08/22/19 17:47 Last Admin: 08/18/19 17:49 Dose: 119 ml Documented by: Ipratropium [place] (Atrovent 0.02% 0.5mg/2.5ml) 0.5 mg INH Q6R [facility] Stop: 09/18/19 00:59 Last Admin: 08/20/19 07:23 Dose: 0.5 mg Documented by: Levalbuterol HCl (Xopenex 1.25mg/0.5ml Neb) 1.25 mg INH Q6R [facility] Stop: 09/18/19 00:59 Last Admin: 08/20/19 07:23 Dose: 1.25 mg Documented by: Miscellaneous Information (Consult) 1 ea N/A UD PRN PRN Reason: Consult Stop: 09/17/19 20:23 Olmesartan (Benicar) 20 mg PO QAM [facility] Stop: 09/18/19 08:59 Last Admin: 08/20/19 07:46 Dose: 20 mg Documented by: Pantoprazole Sodium (Protonix) 40 mg PO [facility] Stop: 09/18/19 08:59 Last Admin: 08/20/19 07:45 Dose: 40 mg Documented by: Polyethylene Glycol (Miralax Powder Packet) 17 gm PO DAILY PRN PRN Reason: Constipation Stop: 09/17/19 20:23 Prednisone (Prednisone) 40 mg PO [facility] Stop: 08/25/19 08:59 Last Admin: 08/20/19 07:45 Dose: 40 mg Documented by: Umeclidinium/Vilanterol (Anoro Ellipta 62.5/25 Mcg Inh) 1 puffs INH [facility] Stop: 09/18/19 08:59 Last Admin: 08/20/19 07:45 Dose: 1 puffs Documented by:
--- NOTE | 2019-08-20 10:10 | Pulmonology Progress Note ---
Date of Service August 20, 2019 Assessment & Plan (1) Acute hypoxemic respiratory failure: Impression: 74-year-old male with advanced obstructive lung disease admitted with acute pulmonary embolism. He is tolerating it reasonably well currently without significant hemodynamic compromise. Recommendation: 1. Acute PE: Currently on heparin infusion. His right ventricle is mildly dilated on echocardiogram which may be multifactorial due to combinations of his obstructive lung disease as well as his acute PE. Follow-up echocardiogram in 3 to 6 months after anticoagulation would be reasonable. Given the predisposing history of recent surgery with rehab, would recommend at least 6 months anticoagulation. Can consider transition to oral agents at this point time. Choice per primary provider, insurance, and patient preference. Coumadin or novel anticoagulant would be appropriate. If Coumadin is selected, will need at least 5 days of heparin with 24-hour overlap INR greater than or equal to 2. Lovenox could be a consideration. 2. COPD: His lungs are clear and he does not have signs or symptoms consistent with an exacerbation. His CT scan did not demonstrate evidence of pneumonia and his white blood cell count was normal. I think antibiotics can be discontinued at the current time. Would follow him clinically. Continue Anoro. He was placed on a 5-day burst of prednisone yesterday and will continue to follow. We will add Mucinex for his pulmonary toilet. Hypertonic saline may also be considered. 3. Acute hypoxemic respiratory failure: Oxygen saturations are acceptable and we are weaning his oxygen. Target saturations greater than or equal to 88%. Will follow with you. Please contact us with questions. (2) Pulmonary embolism: (3) COPD (chronic obstructive pulmonary disease): Subjective Patient reports increasing cough and sputum production this morning. He is not wheezing. He does not report sinus symptoms or postnasal drip. No heartburn or reflux. He does not feel particularly short of breath. No chest pain or palpitations. He is not had any hemoptysis. Review of Systems Review of Systems: Negative except as noted in HPI Results & Data ([facility]) Vital Signs (Past 12 Hours) Vital Signs Temp Pulse Pulse Resp BP Pulse Ox 08/20/19 08:00 36.8 C 69 105 H 18 110/65 95 08/20/19 07:24 73 20 94 08/20/19 07:23 73 20 94 08/20/19 03:11 105 H 20 92 08/20/19 02:58 36.7 C 82 24 113/71 90 08/20/19 00:45 87 16 91 08/19/19 23:13 36.5 C 87 16 109/67 91 08/19/19 22:40 87 22 95 Laboratory Results 08/20/19 05:12 08/20/19 05:12 Diagnostic Findings Echocardiogram from 08/19/2019. Technically limited study. LV wall motion grossly normal with hyperdynamic function. EF of 65 to 70%. Moderate dilatation of the right ventricle with moderate hypokinesis. Estimated right ventricular systolic pressure is 35. IVC not well visualized. PG Care Time/CCT Total # of Minutes Spent Total Time Spent with Patient: Total time spent is greater than 50% in coordination of care (as documented) at patient's floor/unit and/or counseling patient: Coding Level of Care Code 73533 Subseq Hosp Care Lvl 3 Diagnoses Acute hypoxemic respiratory failure J96.01 Pulmonary embolism I26.99 COPD (chronic obstructive pulmonary disease) J44.9 Time Spent (min) 30
--- NOTE | 2019-08-20 12:08 | Cardiology Progress Note ---
Date of Service August 20, 2019 Assessment & Plan (1) Acute hypoxemic respiratory failure: (2) Pulmonary embolism: Left leg DVT, bilateral PE. Ventricular dilatation, moderate RV dysfunction, mild pulmonary hypertension -it is difficult to difficult to distinguish the acuity versus chronicity of the RV dysfunction given his underlying lung disease. -Intermittent bradycardia, likely related to his underlying significant pulmonary embolism. He remains hemodynamically stable, most recent systolic pressure was 126 mmHg. Yesterday he was on high flow oxygen FiO2 40%, 30 L/min, with pulse oximetry in the range of 93% today is down to 4 L/min, pulse oximetry was in the range of 98-99%. Continue UF heparin for now, transition to DOAC (perhaps [place] pt familiar with this agent as his mother in law is on it) or coumadin. Update CMP today and tomorrow. Subjective CC: follow up shortness of breath Subjective: Patient feeling more comfortable this am . He is in the bedside chair using his lap top computer. Telemetry reveals sinus tachycardia at 101 bpm, however he has had ongoing occasional brief runs of junctional bradycardia at 40 bpm, with most recent episode of 8 seconds. Review of Systems Review of Systems: All systems reviewed & are unremarkable except as noted in HPI & below Physical Exam Physical Exam: Temp Pulse Resp BP Pulse Ox 37.0 C 89 16 126/56 L 94 08/20/19 11:55 08/20/19 11:55 08/20/19 11:55 08/20/19 11:55 08/20/19 11:55 Constitutional: WD/WN, vitals as above Respiratory: normal respiratory effort, lungs clear to auscultation Cardiovascular: RRR, no murmur, no edema Neurologic: PERRL, EOMI, accommodation nl, no face palsy, no dysarthria Results & Data Vital Signs (Past 12 Hours) Vital Signs Temp Pulse Pulse Resp BP Pulse Ox 08/20/19 11:55 37.0 C 89 16 126/56 L 94 08/20/19 08:00 36.8 C 69 105 H 18 110/65 95 08/20/19 07:24 73 20 94 08/20/19 07:23 73 20 94 08/20/19 03:11 105 H 20 92 08/20/19 02:58 36.7 C 82 24 113/71 90 08/20/19 00:45 87 16 91 Laboratory Results Coagulation 08/19/19 08/20/19 Range/Units 17:03 05:12 APTT 61.5 H* 78.0 H* (21.0-31.0) Seconds CBC 08/20/19 Range/Units 05:12 WBC 8.93 (4.8-10.8) K/uL RBC 3.32 L (4.7-6.1) M/uL Hgb 10.3 L (14.0-18.0) g/dL Hct 32.6 L (42-52) % Plt Count 348 (130-400) K/uL Comprehensive Metabolic Panel 08/20/19 Range/Units 05:12 Creatinine 0.90 (0.6-1.4) mg/dl Intake and Output 08/19/19 08/20/19 08/20/19 22:59 06:59 14:59 Intake Total 399.05 / 1535.634 448.667 / 1535.634 123.767 / 123.767 Output Total 200 / 200 Balance 399.05 / 1335.634 248.667 / 1335.634 123.767 / 123.767 Intake: IV 249.05 / 1135.634 448.667 / 1135.634 123.767 / 123.767 HEPARIN SODIUM/DEXTROSE 25,000 129.05 / 775.634 328.667 / 775.634 37.267 / 37.267 units In 500 ml @ 1,450 UNITS/ HR 29 mls/hr IV .[id number] [facility] Rx #:[id number] Zosyn 4.5 gm In D5 100 ml @ 30 120 / 360 120 / 360 86.5 / 86.5 mls/hr IV Q8H [facility] Rx#:[id number] Oral 150 / 400 Output: Urine 200 / 200 Other: # Unmeasured Voids 1 Weight 83.9 kg
[2019-08-20 12:45] LABS: Partial Thromboplastin Ratio 2.2
[2019-08-20 13:03] LABS: Albumin Level 2.5 gm/dl (3.4-5.0); BUN Creatinine Ratio 12.1 (10-20); Calcium 8.5 mg/dl (8.5-10.1); Creatinine Clr Calc Pharmacy 75.7 ml/min; Est GFR (African American) 93.5; Est GFR (Non-African American) 80.7; Potassium 3.6 mmol/L (3.5-5.1)
[2019-08-20 13:06] LABS: Albumin Globulin Ratio 0.6 (0.9-2); Bilirubin,Total 0.4 mg/dl (0.2-1); Globulin 4.4 gm/dl (2.5-4.0); Total Protein 6.9 gm/dl (6.4-8.2)
[2019-08-20 13:15] LABS: Partial Thromboplastin Time 61.8 Seconds (21.0-31.0)
[2019-08-20] MEDS ORDERED: COUGH DROP (SUGAR FREE) LOZ 24 LOZ/1 BOX BUCCAL ONE (15:54)
[2019-08-20] MEDS: guaiFENesin 600 MG TABCR PO SCH (20:04)
--- NOTE | 2019-08-20 22:26 | Electrocardiogram Report ---
Test Reason : Blood Pressure : / mmHG Vent. Rate : 097 BPM Atrial Rate : 097 BPM P-R Int : 110 ms QRS Dur : 132 ms QT Int : 384 ms P-R-T Axes : 057 068 050 degrees QTc Int : 487 ms Sinus rhythm with short OK Right bundle branch block T wave abnormality, consider lateral ischemia Abnormal ECG When compared with ECG of 18-AUG-2019 17:12, Questionable change in QRS axis Nonspecific T wave abnormality now evident in Inferior leads Confirmed by Last Mack ([id number]) on 08/20/2019 10:26:37 PM Referred By: Halima Goodwin Confirmed By:Last Mack
[2019-08-21] MEDS: LEVALBUTEROL 1.25MG/0.5ML NEB INH SCH ×5 (00:54→20:06)
[2019-08-21] MEDS: IPRATROPIUM BROMIDE NEB SOLN 0.02% 2.5 ML VIAL INH SCH ×5 (00:54→20:06)
[2019-08-21] MEDS: HEPARIN SODIUM/DEXTROSE 25,000 UNITS/500 ML BAG IV SCH ×4 (01:45→20:09)
[2019-08-21 05:48] LABS: Basophils # (auto) 0.01 K/uL (0-0.2); Basophils % (auto) 0.1 %; Eosinophils # (auto) 0.18 K/uL (0-0.5); Eosinophils % (auto) 2.2 %; Hematocrit (blood only) 32.7 % (42-52); Hemoglobin 10.5 g/dL (14.0-18.0); Immature Granulocytes # (auto) 0.01 K/uL (0.00-0.02); Immature Granulocytes % (auto) 0.1 %; Lymphocytes # (auto) 2.65 K/uL (1.2-3.4); Lymphocytes % (auto) 31.9 %; Mean Corpuscular Hemoglobin 31.2 pg (25-34); Mean Corpuscular Hgb Conc 32.1 g/dL (32-36); Mean Platelet Volume 11.1 fL (7.4-10.4); Monocytes # (auto) 0.79 K/uL (0.11-0.59); Monocytes % (auto) 9.5 %; Neutrophils # (auto) 4.68 K/uL (1.4-6.5); Neutrophils % (auto) 56.2 %; Platelet Count 299 K/uL (130-400); RDW Coefficient of Variation 14.3 % (11.5-14.5); RDW Standard Deviation 50.4 fL (36.4-46.3); Red Blood Count 3.37 M/uL (4.7-6.1); White Blood Count 8.32 K/uL (4.8-10.8)
[2019-08-21 06:17] LABS: Partial Thromboplastin Ratio 2.4
[2019-08-21 06:22] LABS: Albumin Level 2.3 gm/dl (3.4-5.0); BUN Creatinine Ratio 13.6 (10-20); Calcium 8.4 mg/dl (8.5-10.1); Creatinine Clr Calc Pharmacy 107.8 ml/min; Est GFR (African American) 111.9; Est GFR (Non-African American) 96.6; Potassium 2.8 mmol/L (3.5-5.1)
[2019-08-21 06:24] LABS: Partial Thromboplastin Time 67.5 Seconds (21.0-31.0)
[2019-08-21 06:25] LABS: Albumin Globulin Ratio 0.6 (0.9-2); Bilirubin,Total 0.3 mg/dl (0.2-1); Globulin 3.9 gm/dl (2.5-4.0); Phosphorus 2.7 mg/dl (2.5-4.9); Total Protein 6.2 gm/dl (6.4-8.2)
[2019-08-21] MEDS ORDERED: POTASSIUM CHLORIDE 20 MEQ TABCR PO STA (06:43)
[2019-08-21] MEDS ORDERED: POTASSIUM CHLORIDE 20 MEQ TABCR PO ONE (08:30)
[2019-08-21] MEDS: guaiFENesin 600 MG TABCR PO SCH ×2 (08:43→20:09)
[2019-08-21] MEDS: ATORVASTATIN 40 MG TAB PO SCH (08:44)
[2019-08-21] MEDS: ASPIRIN 81 MG ECTAB PO SCH (08:44)
[2019-08-21] MEDS: PANTOprazole 40 MG TAB PO SCH (08:44)
[2019-08-21] MEDS: OLMESARTAN MEDOXOMIL 20 MG TAB PO SCH (08:44)
[2019-08-21] MEDS: predniSONE 20 MG TAB PO SCH (08:44)
[2019-08-21] MEDS: UMECLIDINIUM/VILANTEROL 62.5/25MCG 7 PUFFS/INHALER INH SCH (08:45)
[2019-08-21] MEDS ORDERED: POTASSIUM ACETATE 10 MEQ in 0.9 % SODIUM CHLORIDE 100 ML IV SCH (10:00)
--- NOTE | 2019-08-21 11:04 | Cardiology Progress Note ---
Date of Service August 21, 2019 Assessment & Plan (1) Pulmonary embolism: (provoked)Left leg DVT, bilateral PE. Ventricular dilatation, moderate RV dysfunction, mild pulmonary hypertension Brief intermittent episodes of junctional bradycardia previously, most recently sinus bradycardia, without high-grade AV block, improved/stable. Recent prolonged hospital stay-07/2019 with multiple intra-abdominal surgical procedures, treatment for peritonitis and surgical wound infection, with need fo r surgical incision revision at some point in the future. Recommendations: Continue unfractioned heparin for now. Moving ahead, I favor warfarin or Eliquis as a direct oral anticoagulant agent is to be utilized. The dosing for Eliquis would be 10 mg twice daily for the first 7 days and 5 mg twice daily thereafter for 3 months at which time need for ongoing an ticoagulation will need to be reassessed. The development of the significant pulmonary embolism certainly warrants need to delay his surgical wound closure. When surgery is considered, it may be most prudent to transition patient to a Lovenox bridge as typically anesthesia/surgical providers have more experience with dosing and timing of treatment with Lovenox and with the newer agents. I have asked case management to look into his [id number] cost of Eliquis, in the meantime, will continue unfractioned heparin Subjective Chief complaint: Follow-up shortness of breath Subjective: Patient comfortable sitting up in bed. His spouse, Daphne, is at the bedside. He still has some degree of labored breathing but he is certainly trending toward improvement. His oxygen requirements have been up to 30 L/min/FiO2 of 40% when I had seen him 2 days ago, and were down to 4 L yesterday, he is currently on 3 L nasal cannula with oxygen saturation of 92% this morning. Telemetry reveals predominantly sinus rhythm in the range of 90 to 100 bpm. He did have some brief episodes of bradycardia last night including a brief episode of sinus bradycardia in the 40 bpm range at 2:49 AM, but no prolonged bradycardia. Review of Systems Review of Systems: All systems reviewed & are unremarkable except as noted in HPI & below Physical Exam Physical Exam: Temp Pulse Resp BP Pulse Ox 36.6 C 106 H 18 131/76 92 08/21/19 08:05 08/21/19 08:05 08/21/19 08:05 08/21/19 08:05 08/21/19 08:05 Constitutional: WD/WN, vitals as above Respiratory: normal respiratory effort, lungs clear to auscultation Cardiovascular: RRR, no murmur, no edema Heart Sounds: no murmur Vessels: no JVD Extremities: no edema Gastrointestinal (Abdomen): normal bowel sounds, soft, nontender, no hepatosplenomegaly Neurologic: PERRL, EOMI, accommodation nl, no face palsy, no dysarthria Results & Data Vital Signs (Past 12 Hours) Vital Signs Temp Pulse Pulse Resp BP Pulse Ox 08/21/19 08:05 36.6 C 106 H 18 131/76 92 08/21/19 08:00 80 08/21/19 07:27 80 18 95 08/21/19 04:03 36.7 C 72 18 138/72 89 L 08/21/19 01:54 70 18 97 08/21/19 00:30 90 08/20/19 23:43 37.0 C 70 22 127/71 90 08/20/19 23:23 36.7 C 78 18 135/78 98 Laboratory Results Cardiac Enzymes 08/20/19 08/21/19 Range/Units 12:14 05:31 AST 25 20 (15-37) U/L Coagulation 08/20/19 08/21/19 Range/Units 12:14 05:31 APTT 61.8 H* 67.5 H* (21.0-31.0) Seconds CBC 08/21/19 Range/Units 05:31 WBC 8.32 (4.8-10.8) K/uL RBC 3.37 L (4.7-6.1) M/uL Hgb 10.5 L (14.0-18.0) g/dL Hct 32.7 L (42-52) % Plt Count 299 (130-400) K/uL Neut # (Auto) 4.68 (1.4-6.5) K/uL Lymph # (Auto) 2.65 (1.2-3.4) K/uL [place] # (Auto) 0.79 H (0.11-0.59) K/uL Eos # (Auto) 0.18 (0-0.5) K/uL Baso # (Auto) 0.01 (0-0.2) K/uL Comprehensive Metabolic Panel 08/20/19 08/21/19 Range/Units 12:14 05:31 Sodium 141 144 (136-145) mmol/L Potassium 3.6 2.8 L D (3.5-5.1) mmol/L Chloride 107 110 H (98-107) mmol/L Carbon Dioxide 29 30 (21-32) mmol/L BUN 11 9 (7-18) mg/dl Creatinine 0.94 0.66 (0.6-1.4) mg/dl Glucose 132 H 98 (70-99) mg/dl Calcium 8.5 8.4 L (8.5-10.1) mg/dl AST 25 20 (15-37) U/L ALT 45 38 (12-78) U/L Alkaline Phosphatase 110 96 (45-117) U/L Total Protein 6.9 6.2 L (6.4-8.2) gm/dl Albumin 2.5 L 2.3 L (3.4-5.0) gm/dl Intake and Output 08/20/19 08/21/19 08/21/19 22:59 06:59 14:59 Intake Total 424.2 / 1177.433 389.466 / 1177.433 Output Total 601 300 / 601 Balance 423.2 / 576.433 89.466 / 576.433 Intake: IV 304.2 / 717.433 289.466 / 717.433 HEPARIN SODIUM/DEXTROSE 25,000 304.2 / 630.933 289.466 / 630.933 units In 500 ml @ 1,300 UNITS/ HR 26 mls/hr IV .[id number] [facility] Rx #:[id number] Oral 120 / 460 100 / 460 Output: Urine 300 / 600 # Bowel Movements Other: # Unmeasured Voids 1 Weight 82.5 kg
--- NOTE | 2019-08-21 11:49 | Hospitalist Progress Note ---
Date of Service August 21, 2019 Assessment & Plan (1) Pulmonary embolism: Provoked bilateral pulmonary embolism Bilateral PE after prolonged hospitalization and major abdominal surgery with complications as mentioned in history and physical Has been on Heparin drip. Supportive care with oxygen supplementation The patient and the have been deciding about anticoagulation Discussed in detail about newer anticoagulants and Coumadin They are willing to go by the recommendation from Dr. Ngo (2) Bradycardia: Likely secondary to vagal stimulation Asymptomatic, Cont telemetry monitoring. Consult Cardiology. No more bradycardia Hypokalemia Potassium of 2.8 Received 80 mEq of potassium orally this morning We will monitor (3) Hypoxia: Secondary to bilateral PEs. CT reveals atelectatic versus infiltrative changes at the bases bilaterally. As the patient has been on broad-spectrum antibiotics recently and with recent abdominal surgery Suspect atelectatic changes and doubt any pneumonia vancomycin was stopped as MRSA swab is negative. Zosyn will be continued till 30 August.pharmacy is aware. Maintain saturation on nasal cannula oxygen (4) Demand ischemia: Likely demand ischemia in the setting of bilateral PE, RV strain seen on echo supports this. Doubt any ACS (5) Post-operative state: Recent complex operations to abdomen complicated by peritonitis infection documented as in history and physical Two open wounds remain in his vertical abdominal incision. Again patient is afebrile and does not appear infectious at this time. He is not septic. Continue Zosyn per ID recommendations until 08/30. Please see the picture for detailed about the abdominal wound Wound care provider has been consulted He has an appointment with outpatient wound clinic at [place] tomorrow (6) COPD (chronic obstructive pulmonary disease): Known history of COPD, not in exacerbation. Lungs clear Will continue home inhalers. Prednisone 40mg x 5 days per pulmonology. (7) CAD (coronary artery disease): Known history of coronary disease status post PCI. Stable and without chest pain. Flat trend of cardiac enzymes overnight. Continue medical management with baby aspirin, Lipitor 80 mg nightly, Toprol-XL 50 mg p.o. every morning, on losartan 20 mg p.o. every morning. Remains stable cardiac nassar (8) H/O inguinal hernia repair: (9) DVT prophylaxis: Heparin drip Full code Disposition-cont monitoring in PCU. Care will be transferred to Dr. Dwyer from tomorrow Admission and Anticipated Discharge Date Admission Date: August 18, 2019 Anticipated date of discharge: 08/22/19 Subjective The patient was seen and examined in telemetry unit in presence of the He has pain almost bedbound since 30 July of this year when he underwent valvular surgery in [place] He was admitted from rehab with acute shortness of breath and noted to have bilateral pulmonary embolism He has been feeling a little bit better today and complains to have phlegm in the throat and generalized weakness Denies any significant abdominal pain, nausea no vomiting, and shortness of breath has been improving 08/21/2019 The patient was seen and examined in the telemetry floor in presence of the He cannot tell how he has been feeling because he is lying in bed Denies any significant shortness of breath or chest pain Denies any abdominal pain, nausea and or vomiting No fever and/or chills Review of Systems Review of Systems: All systems reviewed and are unremarkable except as noted below Constitutional: + fatigue, + weakness and + anorexia Respiratory: + dyspnea (Minimal dyspnea at rest) Physical Exam Physical Exam: Lying in bed comfortably with weakness and fatigue Constitutional: well developed, well nourished, + acute distress (Minimal shortness of breath with cough at rest) and + ill appearing Eyes: PERRL, conjunctivae normal, anicteric sclerae ENMT: external ear and nose normal, oropharynx normal Neck: trachea midline, no thyromegaly Respiratory: + respiratory distress (Minimal respiratory distress) and + uses accessory muscles Auscultation: lungs clear to auscultation bilaterally and + diminished lung sounds Cardiovascular: Rate/Rhythm: regular rate and regular rhythm Heart Sounds: no murmur Extremities: no edema Gastrointestinal (Abdomen): Inspection/Auscultation: abdomen normal to i nspection and normal bowel sounds Percussion/Palpation: + abdomen tender (Mildly tender) and abdomen soft Skin: Vertical incision of the abdomen has 2 open wounds. The inferior one is much larger than about 3cm with granulation tissue at the base. No surrounding inflammation or significant drainage. Please look at the wound picture for further details. Robson are still on Lymphatic: no cervical or axillary lymphadenopathy Results & Data ([facility]) Vital Signs (Past 12 Hours) Vital Signs Temp Pulse Pulse Resp BP Pulse Ox 08/21/19 11:40 36.8 C 72 20 143/76 H 93 08/21/19 08:05 36.6 C 106 H 18 131/76 92 03/17/20 08:00 80 08/21/19 07:27 80 18 95 08/21/19 04:03 36.7 C 72 18 138/72 89 L 08/21/19 01:54 70 18 97 08/21/19 00:30 90 08/20/19 23:43 37.0 C 70 22 127/71 90 Laboratory Results Short CBC 08/21/19 Range/Units 05:31 WBC 8.32 (4.8-10.8) K/uL Hgb 10.5 L (14.0-18.0) g/dL Hct 32.7 L (42-52) % Plt Count 299 (130-400) K/uL BMP 08/20/19 08/21/19 12:14 05:31 Sodium 141 144 Potassium 3.6 2.8 L D Chloride 107 110 H Carbon Dioxide 29 30 BUN 11 9 Creatinine 0.94 0.66 Glucose 132 H 98 Calcium 8.5 8.4 L Liver Function 08/20/19 08/21/19 Range/Units 12:14 05:31 Total Bilirubin 0.4 0.3 (0.2-1) mg/dl AST 25 20 (15-37) U/L ALT 45 38 (12-78) U/L Alkaline Phosphatase 110 96 (45-117) U/L Albumin 2.5 L 2.3 L (3.4-5.0) gm/dl Medications Administered Current Inpatient Medications Acetaminophen (Tylenol) 650 mg PO Q4H PRN PRN Reason: Pain or Fever Stop: 09/17/19 20:23 Aspirin (Ecotrin Ectab) 81 mg PO QAOK [facility] [place] Stop: 09/18/19 08:59 Last Admin: 08/21/19 08:44 Dose: 81 mg Documented by: Atorvastatin Calcium (Lipitor) 80 mg PO QAM [facility] Stop: 09/18/19 08:59 Last Admin: 08/21/19 08:44 Dose: 80 mg Documented by: Atropine Sulfate (Atropine Sulfate) 0.5 mg IV Q3M PRN PRN Reason: SYMPTOMATIC BRADYCARDIA Stop: 09/17/19 23:29 Guaifenesin (Mucinex) 1,200 mg PO Q12 [facility] Stop: 09/19/19 20:59 Last Admin: 08/21/19 08:43 Dose: 1,200 mg Documented by: Heparin Sodium (Beef Lung) (Heparin Sod 10 Unit/Ml Flush) 5 ml FLUSH PRN PRN PRN Reason: Flush Stop: 09/19/19 00:46 Heparin Sodium/Dextrose (Heparin Sodium/Dextrose) 25,000 units in 500 mls @ 24 mls/hr IV .[id number] [facility]; Protocol Stop: 09/17/19 20:44 Last Admin: 08/21/19 07:44 Dose: Not Given Documented by: Ioversol (Optiray 320 125ml) 119 ml IV ONCE PRN PRN Reason: Interaction Checking Stop: 08/22/19 17:47 Last Admin: 08/18/19 17:49 Dose: 119 ml Documented by: Ipratropium [place] (Atrovent 0.02% 0.5mg/2.5ml) 0.5 mg INH Q6R [facility] Stop: 09/18/19 00:59 Last Admin: 08/21/19 07:26 Dose: 0.5 mg Documented by: Levalbuterol HCl (Xopenex 1.25mg/0.5ml Neb) 1.25 mg INH Q6R [facility] Stop: 09/18/19 00:59 Last Admin: 08/21/19 07:26 Dose: 1.25 mg Documented by: Olmesartan (Benicar) 20 mg PO QAOK [facility] [place] Stop: 09/18/19 08:59 Last Admin: 08/21/19 08:44 Dose: 20 mg Documented by: Pantoprazole Sodium (Protonix) 40 mg PO QAM [facility] Stop: 09/18/19 08:59 Last Admin: 08/21/19 08:44 Dose: 40 mg Documented by: Polyethylene Glycol (Miralax Powder Packet) 17 gm PO DAILY PRN PRN Reason: Constipation Stop: 09/17/19 20:23 Prednisone (Prednisone) 40 mg PO QAOK [facility] [place] Stop: 08/25/19 08:59 Last Admin: 08/21/19 08:44 Dose: 40 mg Documented by: Umeclidinium/Vilanterol (Anoro Ellipta 62.5/25 Mcg Inh) 1 puffs INH QAM [facility] Stop: 09/18/19 08:59 Last Admin: 08/21/19 08:45 Dose: 1 puffs Documented by:
[2019-08-21 13:36] LABS: Partial Thromboplastin Ratio 1.7
[2019-08-21 13:46] LABS: Partial Thromboplastin Time 48.8 Seconds (21.0-31.0)
--- NOTE | 2019-08-21 16:01 | Pulmonology Progress Note ---
Date of Service August 21, 2019 Assessment & Plan (1) Acute hypoxemic respiratory failure: Patient is improving slowly Multifactorial including COPD, acute PE, abdominal surgery Supplemental oxygen use is improving. Continue to titrate SaO2 to be greater than 88%. (2) Pulmonary embolism: Recent complex operations at [facility] complicated by peritonitis Most recent surgery 08/03/2019 for exploratory laparotomy Patient discharged to [facility] Postoperatively patient developed acute respiratory failure and hypotension and found to be RSV positive He was weaned to 1 L via nasal cannula and transferred to [facility] on August 15, 2019 where he had increasing oxygen requirements Patient presented [facility] and was found to have bilateral pulmonary embolus. Patient was started on heparin drip. * Can transition to Eliquis if approved by insurance. If not approved, may use any other DOAC or warfarin Echocardiogram showed right ventricular strain * Recommend repeat echocardiogram in 3 months Lower extremity Doppler revealed left leg DVT in the distal popliteal, posterior tibial, and peroneal veins. No evidence of DVT in the right lower extremity Patient anticoagulated since 08/18/2019 * No restrictions to ambulation If patient is continued on warfarin, should have overlap with heparin with INR goal of greater than 2 (3) COPD (chronic obstructive pulmonary disease): General clear to auscultation on presentation today Patient with known COPD but no access to PFTs Home medications include albuterol HFA, and Anoro Ellipta Prednisone for 5 days Change nebs to PRN Restart Anoro Ellipta Continue to titrate O2 to 88-92% Thank you for including us in the care of this patient. We will continue to follow for now. Subjective Attending: Dr. Arguello Patient seen and examined in his room with his present. Patient states he has not been out of bed today but is requesting out of bed to chair at the minimum. Patient denies any new shortness of breath. He has no hemoptysis. He denies any tachycardia. He has no pleuritic pain. We discussed anticoagulation options. Also discussed the patient travels in the summer and should take a copy of his CD and report along with him. Patient understands that he will require at least 6 months of anticoagulation. Patient currently is on 3 L/min via nasal cannula and denies any acute shortness of breath. He has no significant sputum production. He denies fever or chills. He does feel extremely fatigued and attributes that to being bedbound. He has no other acute complaints. Review of Systems Review of Systems: All systems reviewed & are unremarkable except as noted in HPI & below Physical Exam Physical Exam: GENERAL : No acute distress EYES: No icterus, gaze conjugate NOSE: No evidence of epistaxis MOUTH: Oral Carmen. NECK: Supple. No stridor LUNGS: Patient with bibasilar HEART: Regular, rate controlled ABDOMEN: Soft, NT, ND, BS Present EXTREMITIES: No LE edema, pedal pulses intact NEURO: A&OX3 Results & Data ([facility]) Vital Signs (Past 12 Hours) Vital Signs Temp Pulse Pulse Resp BP Pulse Ox 08/21/19 15:29 36.7 C 93 H 20 138/73 92 08/21/19 13:28 97 H 16 94 08/21/19 11:40 36.8 C 72 20 143/76 H 93 08/21/19 08:05 36.6 C 106 H 18 131/76 92 08/21/19 08:00 80 08/21/19 07:27 80 18 95 08/21/19 04:03 36.7 C 72 18 138/72 89 L Laboratory Results 08/21/19 05:31 08/21/19 05:31 Diagnostic Findings No further imaging since 08/18/2019 PG Care Time/CCT Total # of Minutes Spent Total Time Spent with Patient: Total time spent is greater than 50% in coordination of care (as documented) at patient's floor/unit and/or counseling patient: 20 minutes Coding Level of Care Code 39486 Subseq Hosp Care Lvl 2 Diagnoses Acute hypoxemic respiratory failure J96.01 Pulmonary embolism I26.99 COPD (chronic obstructive pulmonary disease) J44.9
[2019-08-21] MEDS ORDERED: PIPERACILL/TAZOBAC CONSULT ACTIVE PRN (17:44)
[2019-08-21] MEDS ORDERED: PIPERACILLIN/TAZOBACTAM 4.5 GM in DEXTROSE 5% 100 ML IV ONE (18:00)
[2019-08-22] MEDS ORDERED: PIPERACILLIN/TAZOBACTAM 3.375 GM in DEXTROSE 5% 100 ML IV SCH
[2019-08-22] MEDS: IPRATROPIUM BROMIDE NEB SOLN 0.02% 2.5 ML VIAL INH SCH ×2 (00:56→07:11)
[2019-08-22] MEDS: LEVALBUTEROL 1.25MG/0.5ML NEB INH SCH ×2 (00:56→07:11)
[2019-08-22] MEDS: PIPERACILLIN/TAZOBACTAM 4.5 GM in DEXTROSE 5% 100 ML IV SCH ×3 (01:35→15:41)
[2019-08-22 07:24] LABS: Hematocrit (blood only) 33.6 % (42-52); Hemoglobin 10.8 g/dL (14.0-18.0); Mean Corpuscular Hemoglobin 31.3 pg (25-34); Mean Corpuscular Hgb Conc 32.1 g/dL (32-36); Mean Corpuscular Volume 97.4 fL (80-100); Mean Platelet Volume 11.1 fL (7.4-10.4); Platelet Count 312 K/uL (130-400); RDW Coefficient of Variation 14.5 % (11.5-14.5); Red Blood Count 3.45 M/uL (4.7-6.1); White Blood Count 8.11 K/uL (4.8-10.8)
[2019-08-22] MEDS: guaiFENesin 600 MG TABCR PO SCH ×2 (07:51→20:24)
[2019-08-22] MEDS: ASPIRIN 81 MG ECTAB PO SCH (07:51)
[2019-08-22] MEDS: predniSONE 20 MG TAB PO SCH (07:52)
[2019-08-22] MEDS: PANTOprazole 40 MG TAB PO SCH (07:52)
[2019-08-22] MEDS: OLMESARTAN MEDOXOMIL 20 MG TAB PO SCH (07:52)
[2019-08-22] MEDS: ATORVASTATIN 40 MG TAB PO SCH (07:52)
[2019-08-22] MEDS: UMECLIDINIUM/VILANTEROL 62.5/25MCG 7 PUFFS/INHALER INH SCH (07:53)
[2019-08-22 07:57] LABS: BUN Creatinine Ratio 10.5 (10-20); Calcium 8.4 mg/dl (8.5-10.1); Creatinine Clr Calc Pharmacy 88.9 ml/min; Est GFR (African American) 103.4; Est GFR (Non-African American) 89.2; Potassium 3.3 mmol/L (3.5-5.1)
[2019-08-22 07:59] LABS: Partial Thromboplastin Ratio 1.8
[2019-08-22 08:48] LABS: Partial Thromboplastin Time 51.3 Seconds (21.0-31.0)
--- NOTE | 2019-08-22 09:44 | Pulmonology Progress Note ---
Date of Service August 22, 2019 Assessment & Plan (1) Acute hypoxemic respiratory failure: Impression: 74-year-old male with advanced obstructive lung disease admitted with acute pulmonary embolism. He is tolerating it reasonably well currently without significant hemodynamic compromise. Recommendation: 1. Acute PE: Currently on heparin infusion. His right ventricle is mildly dilated on echocardiogram which may be multifactorial due to combinations of his obstructive lung disease as well as his acute PE. Follow-up echocardiogram in 3 to 6 months after anticoagulation would be reasonable. Given the predisposing history of recent surgery with rehab, would recommend at least 6 months anticoagulation. Transition to oral agents as per prior note. 2. COPD: He is not exhibiting any signs or symptoms of bronchospasm and his lungs actually sound clear. Continue Anoro. He was placed on a 5-day burst of prednisone which she can complete. Outpatient follow-up with his pulmonary team at [facility]. His COPD appears relatively stable. He does need to increase his activity get out of bed and ambulate somewhat. 3. Acute hypoxemic respiratory failure: Oxygen saturations are acceptable and we are weaning his oxygen. Target saturations greater than or equal to 88%. Patient appears to be doing reasonably well from a pulmonary standpoint. We will sign off at this point time. Feel free to contact us if we can be of additional assistance. (2) Pulmonary embolism: (3) COPD (chronic obstructive pulmonary disease): Subjective Patient seen and examined. He feels that his breathing is slightly improving. He is coughing less. Less congestion in his chest. He has been out of bed and doing reasonably well. He is continuing on the heparin infusion. No signs of bleeding. No syncope or presyncope. No significant lower extremity edema. Denies palpitations. Review of Systems Review of Systems: Unchanged from prior Physical Exam Constitutional: WD/WN, vitals as above Neck: trachea midline, no thyromegaly Respiratory: normal respiratory effort, lungs clear to auscultation Cardiovascular: RRR, no murmur, no edema Gastrointestinal (Abdomen): normal bowel sounds, soft, nontender, no hepatosplenomegaly Musculoskeletal: Extremities: extremities normal to inspection Skin: no rashes, warm and dry Neurologic: Nonfocal exam Lymphatic: no cervical lymphadenopathy Results & Data ([facility]) Vital Signs (Past 12 Hours) Vital Signs Temp Pulse Pulse Resp BP Pulse Ox 08/22/19 07:45 36.5 C 86 18 140/79 96 03/18/20 07:13 91 H 17 95 08/22/19 04:05 36.4 C L 87 18 143/81 H 93 08/22/19 00:56 84 16 94 08/21/19 23:56 36.6 C 69 19 139/81 94 08/21/19 23:52 74 Laboratory Results 08/22/19 07:09 08/22/19 07:09 Diagnostic Findings No new imaging PG Care Time/CCT Total # of Minutes Spent Total Time Spent with Patient: Total time spent is greater than 50% in coordination of care (as documented) at patient's floor/unit and/or counseling patient: Coding Level of Care Code 40273 Subseq Hosp Care Lvl 2 Diagnoses Acute hypoxemic respiratory failure J96.01 Pulmonary embolism I26.99 COPD (chronic obstructive pulmonary disease) J44.9
[2019-08-22] MEDS ORDERED: IPRATROPIUM BROMIDE NEB SOLN 0.02% 2.5 ML VIAL INH PRN (11:50)
[2019-08-22] MEDS ORDERED: LEVALBUTEROL 1.25MG/0.5ML NEB INH PRN (11:50)
--- NOTE | 2019-08-22 13:17 | Cardiology Progress Note ---
Date of Service August 22, 2019 Assessment & Plan (1) Acute hypoxemic respiratory failure: (Provoked)Left leg DVT, bilateral PE. Moderate Right Ventricular dilatation, moderate RV dysfunction, mild pulmonary hypertension (acuity/chronicity difficult to determine given his underlying COPD) Brief intermittent episodes of junctional bradycardia previously, most recently sinus bradycardia, without high-grade AV block, improved/stable. Recent prolonged hospital stay-07/2019 with multiple intra-abdominal surgical procedures, treatment for peritonitis and surgical wound infection. Recommendations: Patient continues to show clinical improvement. His oxygen requirements are down to 2 L nasal cannula, and his most recent pulse oximetry was 96%. Blood pressure remained stable. He has been tolerating unfractionated heparin infusion, and his hemoglobin is relatively stable. We looked into the [id number] cost of Eliquis for him, and a one-month supply had been estimated to cost $482 I think was his recent intra-abdominal surgical history, and baseline anemia, it would be most prudent to proceed with heparin bridge to Coumadin treatment. We will therefore start Coumadin 7.5 mg today. Check daily INR levels. Continue ASA 81 mg given history of CAD, remote Circumflex coronary stent. Subjective Chief complaint: Follow-up shortness of breath Subjective: Patient sitting in the bedside chair. He is working on his laptop. 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 Telemetry reveals sinus rhythm for the most part in the range of 98 to 101 bpm. A 4 beat run of wide-complex tachycardia was observed at 2:21 AM. No recent bradycardia has been observed. Review of Systems Review of Systems: All systems reviewed & are unremarkable except as noted in HPI & below Physical Exam Physical Exam: Temp Pulse Resp BP Pulse Ox 36.5 C 76 18 138/75 96 08/22/19 11:58 08/22/19 11:58 08/22/19 11:58 08/22/19 11:58 08/22/19 11:58 Constitutional: WD/WN, vitals as above Respiratory: normal respiratory effort, lungs clear to auscultation Cardiovascular: RRR, no murmur, no edema Vessels: no JVD Extremities: no edema Gastrointestinal (Abdomen): binder in place not examined Results & Data Vital Signs (Past 12 Hours) Vital Signs Temp Pulse Resp BP Pulse Ox 08/22/19 11:58 36.5 C 76 18 138/75 96 08/22/19 07:45 36.5 C 86 18 140/79 96 08/22/19 07:13 91 H 17 95 08/22/19 04:05 36.4 C L 87 18 143/81 H 93
[2019-08-22 14:05] LABS: INR 1.1 (0.9-1.1); Prothrombin Time 11.8 Seconds (9.0-12.0)
[2019-08-22] MEDS: HEPARIN SODIUM/DEXTROSE 25,000 UNITS/500 ML BAG IV SCH (15:47)
[2019-08-22] MEDS ORDERED: WARFARIN SOD 7.5 MG TAB PO SCH (16:00)
--- NOTE | 2019-08-22 16:03 | Wound Consultation ---
Date of Consultation August 21, 2019 Assessment & Plan (1) Delayed surgical wound healing: This is a 74 year old male with surgical wound with delayed healing. No debridement required. Will apply adaptic touch to sutures and exposed structures. White foam in tunnel and black foam to wounds. Wound vac will be set at 150mmhg. Will change vac 3 times a week. Patient will need follow up with surgeon. I am happy to follow patient in [facility] for vac management. Will see patient 1 week after discharge. Thank you for allowing me to participate in the care of this patient. (2) S/P partial colectomy: (3) History of exploratory laparotomy: History of Present Illness Reason for Consultation: open wound of abdomen Attending Physician: Sunil Dwyer MD History of Present Illness This is a 74 year old male with history of CAD, COPD, exploratory laparotomy, partial colectomy. Patient had complicated abdominal surgery secondary to volvulus and further complicated by peritonitis. Patient underwent these 2 surgeries over three.weeks. Still with open abdominal wound. Robson in place with two areas of dehiscence. Currently dressing the wound with wet to dry packing. Allergies Allergy/AdvReac Type Severity Reaction Status Date / Time Sulfa (Sulfonamide Allergy Unknown TOLD A Verified 08/18/19 17:05 Antibiotics) CHILD TO NOT USE Home Medications Home Medications Medication Instructions Recorded Confirmed Type aspirin 81 mg PO QAM 07/19/19 08/18/19 History atorvastatin [Lipitor] 80 mg PO HS 07/19/19 08/18/19 History metoprolol succinate [Toprol XL] 50 mg PO QAM 07/19/19 08/18/19 History olmesartan [Benicar] 20 mg PO QAM 07/19/19 08/18/19 History omeprazole 20 mg PO QAM 07/19/19 08/18/19 History umeclidinium-vilanterol [Anoro 1 inh INHALATION QAM 07/19/19 08/18/19 History Ellipta] acetaminophen 650 mg PO QID PRN 08/18/19 08/18/19 History albuterol sulfate 2 puff INHALATION Q6 PRN 08/18/19 08/18/19 History heparin lock flush (porcine) 0 unit IV Q8 08/18/19 08/18/19 History piperacillin-tazobactam [Zosyn] 4.5 g IV TID 08/18/19 08/18/19 History sodium chloride 0.9 % (flush) 10 ml IV Q8H 08/18/19 08/18/19 History Patient History Medical History (Updated 08/22/19 @ 22:13 by Tu Jc, DO) Acute hypoxemic respiratory failure Acute respiratory failure with hypoxia CAD S/P percutaneous coronary angioplasty with stent placement Cecal volvulus COPD (chronic obstructive pulmonary disease) Delayed surgical wound healing Dyslipidemia Hemorrhoids, internal with ligation in 06/2010 Hernia Thoracic aortic aneurysm Surgical History H/O hernia repair One surgery age 18 (right side), then another hernia repair to fix this area in 1997. H/O inguinal hernia repair History of exploratory laparotomy 07/20/2019-ileocecectomy, stapled side to side ileocolostomy, post op ileus. 08/03/2019-back to OR for ex lap, lysis of adhesions, and decompressive enterotomy. S/P partial colectomy 07/20/2019, with anastomosis Family History Other Melanoma Social History Preferred Language: Montenegrin Communication Ability: Effective Microsoft Developer Required: No Beliefs That Will Affect Care: None marital status: Current Living Situation: Spouse Other Information That Helps Us Care for You: No Feels Safe at Home: Yes Safety Concerns: Feels Safe At This Time Smoking Status: Former smoker Second Hand Exposure: No ; Hx Alcohol Use: No Hx Substance Use: No Review of Systems Review of Systems: All systems reviewed & are unremarkable except as noted in HPI & below Physical Exam Constitutional: WD/WN, vitals as above Skin: Wound #1, distal abdomen measuring 4 x 2.5 x 1.9cm. Wound covered with fibrin and slough. There is a visible suture in wound. Wound #2, proximal abdomen measuring 2 x 1 x 1.8cm Wound covered with fibrin and slough. Wounds are connected. Neurologic: awake; not confused Psychiatric: A+Ox3, euthymic affect Results & Data Vital Signs (Past 12 Hours) Vital Signs Temp Pulse Resp BP Pulse Ox 08/22/19 15:25 37.1 C 89 20 126/77 91 08/22/19 11:58 36.5 C 76 18 138/75 96 08/22/19 07:45 36.5 C 86 18 140/79 96 08/22/19 07:13 91 H 17 95 08/22/19 04:05 36.4 C L 87 18 143/81 H 93 PG Care Time/CCT Total # of Minutes Spent Total Time Spent with Patient: Total time spent is greater than 50% in coordination of care (as documented) at patient's floor/unit and/or counseling patient: Coding Level of Care Code 10111 Inpt Consult Level 3 Diagnoses Delayed surgical wound healing T81.89XA S/P partial colectomy Z90.49 History of exploratory laparotomy Z98.890
--- NOTE | 2019-08-22 21:30 | Hospitalist Progress Note ---
Date of Service August 22, 2019 Assessment & Plan (1) Pulmonary embolism: Presented with hypoxia. CTA chest demonstrated bilateral pulmonary emboli. Venous duplex lower extremities showed DVT left popliteal, posterior tibial, and peroneal veings. Acute provoked VTE (PE's & DVT), present on admission. Echo showed moderate RV hypokinesis. Receiving IV heparin. Pros and cons of different anticoagulation options discussed with patient, , Cardiology. Patient prefers oral therapy with apixaban. Will need f/u echo in 3-6 months. Probable duration of anticoagulation 6 months. (2) Acute hypoxemic respiratory failure: Secondary to pulmonary emboli. Continue supplemental O2, wean as tolerated. 2-step pulse ox before DC. (3) Bradycardia: Episodes of junctional rhythm and sinus bradycardia. Metoprolol held. Check nocturnal O2 sats to see if bradycardia secondary to hypoxia. (4) COPD (chronic obstructive pulmonary disease): Continue Anoro Ellipta + albuterol PRN. Receiving prednisone x 5 days. (5) CAD (coronary artery disease): History of CAD, s/p PCI. Elevated troponin as discussed below. Metoprolol held for bradycardia. Continue ASA and statin. (6) Elevated troponin I level: Probable demand ischemia and/or RV strain from pulmonary emboli. (7) Delayed surgical wound healing: Wound Care consulted. Wound Vac applied. Continue IV piperacillin / tazobactam for wound infection + peritonitis. (8) Anemia: Baseline Hgb ~ 14-15. Hgb's at [facility] as low as 10.7. Hgb at tme of admission was 12.3. Hgb today = 10.8. Anemia not surprising given prolonged hospitalization, surgeries, infection, multiple phlebotomies. Could have B12 deficiency due to ileocecectomy. No gross GI bleeding on IV heparin. Check fecal OB, Fe studies, B12, folate. (9) DVT prophylaxis: Receiving treatment for acute VTE as discussed above. (10) Discharge planning issues: Patient hopes to be discharged to home. Will need home health services. Internal Medicine follow-up with Dr. Alberto. Surgical team at [facility] was give update. Admission and Anticipated Discharge Date Admission Date: August 18, 2019 Anticipated date of discharge: 08/22/19 Subjective Recheck for pulmonary emboli and other problems. Patient seen in their room around 1030. Daphne participated by phone. Overall, feels better. Less SOB. Occasional nonproductive cough. No pleuritic chest pain. Noted to have episodes of SB around 30 while sleeping. Seen by Wound Care for abdominal wound. Wound Vac applied. Review of Systems: Constitutional- no fever. Cardiac- no chest pain. Pulmonary- as noted above. GI- no nausea, vomiting, diarrhea, melena, hematochezia. - no urinary symptoms. Otherwise, as noted above. Physical Exam Constitutional: no acute distress Respiratory: no respiratory distress Auscultation: + rales (few bibasilar) Cardiovascular: Rate/Rhythm: regular rate and regular rhythm Heart Sounds: no gallop and no cardiac rub Vessels: no JVD Extremities: no calf tenderness and no edema Gastrointestinal (Abdomen): Inspection/Auscultation: normal bowel sounds; + abdomen abnormal to inspection (Wound Vac and abdominal binder applied) Percussion/Palpation: abdomen soft; abdomen nontender Skin: no rashes, warm and dry Psychiatric: Orientation: alert and oriented x 3 Results & Data ([facility]) Vital Signs (Past 12 Hours) Vital Signs Temp Pulse Pulse Resp BP Pulse Ox 08/22/19 18:47 36.7 C 92 H 19 152/82 H 95 08/22/19 16:00 79 08/22/19 15:25 37.1 C 89 20 126/77 91 08/22/19 11:58 36.5 C 76 18 138/75 96 Laboratory Results Laboratory Results - last 24 hr 08/22/19 08/22/19 08/22/19 07:09 07:09 07:09 WBC 8.11 RBC 3.45 L Hgb 10.8 L Hct 33.6 L MCV 97.4 MCH 31.3 MCHC 32.1 RDW Std Deviation 51.0 H RDW Coeff of Beata 14.5 Plt Count 312 MPV 11.1 H PT INR APTT 51.3 H* PTT Ratio 1.8 Sodium 144 Potassium 3.3 L D Chloride 111 H Carbon Dioxide 27 Anion Gap 6.0 BUN 8 Creatinine 0.80 Est Cr Clr Drug Dosing 88.9 Est GFR ( Amer) 103.4 Est GFR (Non-Af Amer) 89.2 BUN/Creatinine Ratio 10.5 Glucose 89 Calcium 8.4 L Magnesium 2.0 08/22/19 07:09 WBC RBC Hgb Hct MCV MCH MCHC RDW Std Deviation RDW Coeff of Beata Plt Count MPV PT 11.8 INR 1.1 APTT PTT Ratio Sodium Potassium Chloride Carbon Dioxide Anion Gap BUN Creatinine Est Cr Clr Drug Dosing Est GFR ( Amer) Est GFR (Non-Af Amer) BUN/Creatinine Ratio Glucose Calcium Magnesium
[2019-08-23] MEDS: PIPERACILLIN/TAZOBACTAM 4.5 GM in DEXTROSE 5% 100 ML IV SCH ×4 (00:25→23:33)
[2019-08-23 06:36] LABS: BUN Creatinine Ratio 12.6 (10-20); Calcium 8.4 mg/dl (8.5-10.1); Creatinine Clr Calc Pharmacy 97.4 ml/min; Est GFR (African American) 107.4; Est GFR (Non-African American) 92.7; Potassium 3.1 mmol/L (3.5-5.1)
[2019-08-23 06:41] LABS: Ferritin 698.4 ng/ml (8-388)
[2019-08-23 07:37] LABS: Folate (Folic Acid) 12.35 ng/ml (>5.38)
[2019-08-23] MEDS: guaiFENesin 600 MG TABCR PO SCH ×2 (08:07→20:05)
[2019-08-23] MEDS: PANTOprazole 40 MG TAB PO SCH (08:07)
[2019-08-23] MEDS: predniSONE 20 MG TAB PO SCH (08:07)
[2019-08-23] MEDS: APIXABAN 5 MG TABLET PO SCH ×2 (08:08→20:05)
[2019-08-23] MEDS: UMECLIDINIUM/VILANTEROL 62.5/25MCG 7 PUFFS/INHALER INH SCH (08:08)
[2019-08-23] MEDS: OLMESARTAN MEDOXOMIL 20 MG TAB PO SCH (08:08)
[2019-08-23] MEDS: ATORVASTATIN 40 MG TAB PO SCH (08:08)
[2019-08-23] MEDS: ASPIRIN 81 MG ECTAB PO SCH (08:08)
[2019-08-23] MEDS ORDERED: POTASSIUM CHLORIDE 20 MEQ TABCR PO ONE (10:34)
--- NOTE | 2019-08-23 11:09 | Cardiology Progress Note ---
Date of Service August 23, 2019 Assessment & Plan (1) Pulmonary embolism: DVT bilateral PE (post op) Improving clinically. Heparin transitioned to Eliquis, plan for 10 mg BID (day 1 of 7) then transition to 5 mg BID. (2) Bradycardia: Nocturnal pulse oximetry as low as 77% overnight, perhaps underlying obstructive sleep apnea. Beta-rupinder has been discontinued. No indication for pacemaker. Patient was asymptomatic during the episode of bra dycardia this morning, sleeping. Hypokalemia noted, replacement ordered by the primary service. (3) Delayed surgical wound healin.5 x 3 cm wound adjacent to his abdominal surgical incision, wound VAC applied, patient to complete a course of Zosyn as outpatient. Subjective Chief Complaint: follow up shortness of breath Subjective: Patient continues to improve subjectively. He is sitting the bedside chair. Oxygen saturation this morning is 96% on 2 L nasal cannula. For the most part, telemetry reveals sinus rhythm and sinus tachycardia in the range of 98 bpm to 105 bpm. Occasional episodes of bradycardia observed on telemetry, with bradycardia in the range of 30 to 50 bpm briefly at 730 this morning when the patient was napping. Review of Systems Review of Systems: All systems reviewed & are unremarkable except as noted in HPI & below Physical Exam Physical Exam: Temp Pulse Resp BP Pulse Ox 36.5 C 56 L 19 147/84 H 96 08/23/19 07:10 08/23/19 08:00 08/23/19 07:10 08/23/19 07:10 08/23/19 07:10 Constitutional: WD/WN, vitals as above Respiratory: normal respiratory effort, lungs clear to auscultation Cardiovascular: RRR, no murmur, no edema Chest (Breasts): normal inspection/palpation of breasts Musculoskeletal: no cyanosis or clubbing, extremities motor strength 5/5 Neurologic: PERRL, EOMI, accommodation nl, no face palsy, no dysarthria Results & Data Vital Signs (Past 12 Hours) Vital Signs Temp Pulse Pulse Resp BP Pulse Ox 08/23/19 08:00 56 L 08/23/19 07:10 36.5 C 78 19 147/84 H 96 08/23/19 03:29 36.8 C 77 18 138/75 95 08/23/19 00:00 64 08/22/19 23:44 36.5 C 68 16 146/75 H 95 Laboratory Results Coagulation 08/22/19 08/23/19 Range/Units 07:09 05:43 PT 11.8 (9.0-12.0) Seconds APTT 55.0 H* (21.0-31.0) Seconds Comprehensive Metabolic Panel 08/23/19 Range/Units 05:43 Sodium 142 (136-145) mmol/L Potassium 3.1 L (3.5-5.1) mmol/L Chloride 110 H (98-107) mmol/L Carbon Dioxide 30 (21-32) mmol/L BUN 9 (7-18) mg/dl Creatinine 0.73 (0.6-1.4) mg/dl Glucose 89 (70-99) mg/dl Calcium 8.4 L (8.5-10.1) mg/dl Intake and Output 08/22/19 08/23/19 08/23/19 22:59 06:59 14:59 Intake Total 518.8 / 1664.6 120 / 1664.6 350.4 / 350.4 Output Total 200 / 411 210 / 411 Balance 318.8 / 1253.6 -90 / 1253.6 350.4 / 350.4 Intake: IV 218.8 / 839.6 120 / 839.6 350.4 / 350.4 HEPARIN SODIUM/DEXTROSE 25,000 98.8 / 479.6 350.4 / 350.4 units In 500 ml @ 1,200 UNITS/ HR 24 mls/hr IV .[id number] [facility] Rx #:[id number] Zosyn 4.5 gm In D5 100 ml @ 30 120 / 360 120 / 360 mls/hr IV Q8H [facility] Rx#:[id number] Oral 300 / 825 Output: Urine 200 / 410 210 / 410 Other: Weight 81.9 kg
[2019-08-23] MEDS: POTASSIUM CHLORIDE PWD 20 MEQ PACK PO SCH ×2 (14:58→20:05)
--- NOTE | 2019-08-23 21:09 | Hospitalist Progress Note ---
Date of Service August 23, 2019 Assessment & Plan (1) Pulmonary embolism: Presented with hypoxia. CTA chest demonstrated bilateral pulmonary emboli. Venous duplex lower extremities showed DVT left popliteal, posterior tibial, and peroneal veings. Acute provoked VTE (PE's & DVT), present on admission. Echo showed moderate RV hypokinesis. Receiving IV heparin. Pros and cons of different anticoagulation options discussed with patient, , Cardiology. Patient prefers oral therapy with apixaban. Transitioned from IV heparin to apixaban this morning. Will need f/u echo in 3-6 months. Probable duration of anticoagulation 6 months. (2) Acute hypoxemic respiratory failure: Secondary to pulmonary emboli. Continue supplemental O2, wean as tolerated. 2-step pulse ox before DC. (3) Nocturnal hypoxia: Nocturnal pulse oximetry performed with O2 2 LPM showed 15 min of desaturation with sats as low as 77%. Nocturnal hypoxia probably multifactorial- COPD, acute PE, possible sleep apnea. CPAP discussed- pt reluctant because of claustrophobia, but willing to try. Will need complete sleep study as outpatient. (4) Bradycardia: Episodes of junctional rhythm and sinus bradycardia. Metoprolol held. Nocturnal hypoxia noted on pulse oximetry. (5) COPD (chronic obstructive pulmonary disease): Continue Anoro Ellipta + albuterol PRN. Receiving prednisone x 5 days. (6) CAD (coronary artery disease): History of CAD, s/p PCI. Elevated troponin as discussed below. Metoprolol held for bradycardia. Continue ASA and statin. (7) Elevated troponin I level: Probable demand ischemia and/or RV strain from pulmonary emboli. (8) Delayed surgical wound healing: Wound Care consulted. Wound Vac applied. Continue IV piperacillin / tazobactam for wound infection + peritonitis; stop date 08/31. (9) Anemia: Baseline Hgb ~ 14-15. [place] [facility] [place] 10.7. Hgb at tme of admission was 12.3. Hgb yesterday = 10.8. Anemia not surprising given prolonged hospitalization, surgeries, infection, multiple phlebotomies. Could have B12 deficiency due to ileocecectomy. No gross GI bleeding on IV heparin. Fe studies, B12, folate OK. Check fecal OB. (10) Hypokalemia: K = 3.1. Replace. Follow. (11) DVT prophylaxis: Receiving treatment for acute VTE as discussed above. (12) Discharge planning issues: Patient hopes to be discharged to home. Will need home health services. Internal Medicine follow-up with Dr. Alberto. Surgical team [place] [facility] [place] give update. Admission and Anticipated Discharge Date Admission Date: August 18, 2019 Anticipated date of discharge: 08/22/19 Subjective Recheck for pulmonary emboli and other problems. Patient seen in their room around 1110. Daphne participated by phone. Overall, feels better. Less SOB. Cough productive of milky / somewhat yellow sputum. No pleuritic chest pain. Continues to have episodes of SB around 30 while sleeping. Ambulating. Review of Systems: Constitutional- no fever. Cardiac- no chest pain. Pulmonary- as noted above. GI- no nausea, vomiting, diarrhea, melena, hematochezia. - no urinary symptoms. Otherwise, as noted above. Physical Exam Constitutional: no acute distress Respiratory: no respiratory distress Auscultation: + rales (few bibasilar) and + rhonchi (few) Cardiovascular: Rate/Rhythm: regular rate and regular rhythm Heart Sounds: no gallop and no cardiac rub Vessels: no JVD Extremities: no calf tenderness and no edema Gastrointestinal (Abdomen): Inspection/Auscultation: normal bowel sounds; + abdomen abnormal to inspection (Wound Vac and abdominal binder applied) Percussion/Palpation: abdomen soft; abdomen nontender Skin: no rashes, warm and dry Psychiatric: Orientation: alert and oriented x 3 Results & Data ([facility]) Vital Signs (Past 12 Hours) Vital Signs Temp Pulse Resp BP Pulse Ox 08/23/19 20:19 36.9 C 77 18 131/68 98 08/23/19 15:41 36.5 C 72 18 129/74 95 08/23/19 12:13 36.5 C 82 19 126/78 94 Laboratory Results Laboratory Results - last 24 hr 08/23/19 08/23/19 08/23/19 05:43 05:43 05:43 APTT 55.0 H* PTT Ratio 2.0 Sodium 142 Potassium 3.1 L Chloride 110 H Carbon Dioxide 30 Anion Gap 2.0 L BUN 9 Creatinine 0.73 Est Cr Clr Drug Dosing 97.4 Est GFR ( Amer) 107.4 Est GFR (Non-Af Amer) 92.7 BUN/Creatinine Ratio 12.6 Glucose 89 Calcium 8.4 L Iron 63 Transferrin 152 L Transferrin % Sat 29 Ferritin 698.4 H Vitamin B12 436 Folate 12.35
[2019-08-24 05:59] LABS: Hematocrit (blood only) 33.7 % (42-52); Hemoglobin 10.8 g/dL (14.0-18.0); Mean Corpuscular Hemoglobin 31.1 pg (25-34); Mean Corpuscular Volume 97.1 fL (80-100); Mean Platelet Volume 11.1 fL (7.4-10.4); Platelet Count 320 K/uL (130-400); RDW Coefficient of Variation 14.6 % (11.5-14.5); RDW Standard Deviation 51.2 fL (36.4-46.3); Red Blood Count 3.47 M/uL (4.7-6.1); White Blood Count 8.16 K/uL (4.8-10.8)
[2019-08-24 06:26] LABS: BUN Creatinine Ratio 13.5 (10-20); Calcium 8.7 mg/dl (8.5-10.1); Creatinine Clr Calc Pharmacy 83.7 ml/min; Est GFR (African American) 100.9; Est GFR (Non-African American) 87.1; Potassium 3.2 mmol/L (3.5-5.1)
[2019-08-24] MEDS: UMECLIDINIUM/VILANTEROL 62.5/25MCG 7 PUFFS/INHALER INH SCH (08:45)
[2019-08-24] MEDS: PIPERACILLIN/TAZOBACTAM 4.5 GM in DEXTROSE 5% 100 ML IV SCH ×2 (08:45→15:35)
[2019-08-24] MEDS: guaiFENesin 600 MG TABCR PO SCH ×2 (08:46→21:26)
[2019-08-24] MEDS: APIXABAN 5 MG TABLET PO SCH ×2 (08:46→21:25)
[2019-08-24] MEDS: PANTOprazole 40 MG TAB PO SCH (08:46)
[2019-08-24] MEDS: POTASSIUM CHLORIDE PWD 20 MEQ PACK PO SCH ×3 (08:46→21:26)
[2019-08-24] MEDS: predniSONE 20 MG TAB PO SCH (08:46)
[2019-08-24] MEDS: ATORVASTATIN 40 MG TAB PO SCH (08:47)
[2019-08-24] MEDS: ASPIRIN 81 MG ECTAB PO SCH (08:47)
[2019-08-24] MEDS: OLMESARTAN MEDOXOMIL 20 MG TAB PO SCH (08:47)
--- NOTE | 2019-08-24 12:14 | Cardiology Progress Note ---
Date of Service August 24, 2019 Assessment & Plan (1) Pulmonary embolism: Patient treated with unfractionated heparin from 08/18/2019 - 08/23/2019. Transitioned to Eliquis 08/23/2019, today is day 2 /7 days of Eliquis 10 mg 2 times per day. After which time, plan to transition to patient to the 5 mg 2 times per day maintenance dose. Hgb stable. SBP and pulse oximetry stable. Plan is complete 6 month course of anticoagulation. (2) Bradycardia: Initially on hospital day 1, had transient junctional bradycardia. This is improved with improvement in his oxygenation overall. Prior to hospital dosing of metoprolol has been discontinued. Stable heart rates noted. Will observe. Bradycardia likely associated with nocturnal hypoxia, suspected underlying sleep apnea. (3) Nocturnal hypoxia: Nocturnal hypoxia down to the 70s. Intolerant of noninvasive positive pressure ventilation mask due to claustrophobia. Continue nasal cannula supplementation for now. Agree with plan for outpatient work-up to consider less invasive positive pressure ventilation mask. (4) Hypokalemia: Oral replacement ordered by primary service. (5) Delayed surgical wound healing: Vacuum wound applied Remains on IV Zosyn due to history of peritonitis and delayed surgical wound closure. (6) CAD (coronary artery disease): Continue prior to hospital dosing of aspirin, atorvastatin (stable LFTs on 08/21/2019), olmesartan. Metoprolol discontinued due to bradycardia as noted above. -History of mild ascending aorta dilatation 4.[address] this admission. -Continue to follow. At this time cardiology will sign off. Please contact Dr. Boone who assumes rounding on 08/24 with questions or concerns. -Arrange outpatient follow up with me in about 4 weeks. Subjective Complaint: Follow-up shortness of breath Subjective: Patient continues to improve clinically. Denies chest discomfort or shortness of breath. He tolerated positive pressure ventilation for about an hour last evening, but notes significant concern of claustrophobia and he prefers to not try it again and to remain on nasal cannula for the time being. The predominant rhythm on telemetry is sinus rhythm with sinus tachycardia in the range of 100 bpm at present while sitting up eating his lunchtime meal. Several brief episodes of bradycardia noted, with sinus bradycardia in the 45 bpm range noted briefly at 10:44 AM, no additional junctional rhythm. Review of Systems Review of Systems: All systems reviewed & are unremarkable except as noted in HPI & below Physical Exam Physical Exam: Temp Pulse Resp BP Pulse Ox 36.6 C 75 20 131/76 91 08/24/19 11:01 08/24/19 11:01 08/24/19 11:01 08/24/19 11:01 08/24/19 11:01 Constitutional: WD/WN, vitals as above Respiratory: normal respiratory effort, lungs clear to auscultation Cardiovascular: RRR, no murmur, no edema Gastrointestinal (Abdomen): Abdominal wound visualized when the wound care team came to change vacuum dressing. There are 2 focal areas where the abdominal surgical wound is not approximated, appropriate granulation tissue and tissue noted. Neurologic: PERRL, EOMI, accommodation nl, no face palsy, no dysarthria Results & Data Vital Signs (Past 12 Hours) Vital Signs Temp Pulse Pulse Resp BP Pulse Ox 08/24/19 11:01 36.6 C 75 20 131/76 91 08/24/19 08:00 62 08/24/19 07:13 36.2 C L 78 18 147/84 H 94 08/24/19 03:52 36.6 C 69 18 133/87 95 Laboratory Results CBC 08/24/19 Range/Units 05:31 WBC 8.16 (4.8-10.8) K/uL RBC 3.47 L (4.7-6.1) M/uL Hgb 10.8 L (14.0-18.0) g/dL Hct 33.7 L (42-52) % Plt Count 320 (130-400) K/uL Comprehensive Metabolic Panel 08/24/19 Range/Units 05:31 Sodium 142 (136-145) mmol/L Potassium 3.2 L (3.5-5.1) mmol/L Chloride 109 H (98-107) mmol/L Carbon Dioxide 29 (21-32) mmol/L BUN 11 (7-18) mg/dl Creatinine 0.85 (0.6-1.4) mg/dl Glucose 88 (70-99) mg/dl Calcium 8.7 (8.5-10.1) mg/dl Intake and Output 08/23/19 08/24/19 08/24/19 22:59 06:59 14:59 Intake Total 470 / 1400.4 220 / 1400.4 Output Total 200 / 550 250 / 550 100 / 100 Balance 270 / 850.4 -30 / 850.4 -100 / -100 Intake: IV 120 / 710.4 120 / 710.4 Zosyn 4.5 gm In D5 100 ml @ 30 120 / 360 120 / 360 mls/hr IV Q8H [facility] Rx#:[id number] Oral 350 / 690 100 / 690 Output: Urine 200 / 550 250 / 550 100 / 100 Other: # Unmeasured Voids 1 Weight 81.7 kg
--- NOTE | 2019-08-24 19:42 | Hospitalist Progress Note ---
Date of Service August 24, 2019 Assessment & Plan (1) Pulmonary embolism: Presented with hypoxia. CTA chest demonstrated bilateral pulmonary emboli. Venous duplex lower extremities showed DVT left popliteal, posterior tibial, and peroneal veings. Acute provoked VTE (PE's & DVT), present on admission. Echo showed moderate RV hypokinesis. Receiving IV heparin. Pros and cons of different anticoagulation options discussed with patient, , Cardiology. Patient prefers oral therapy with apixaban. Transitioned from IV heparin to apixaban this morning. Will need f/u echo in 3-6 months. Probable duration of anticoagulation 6 months. (2) Acute hypoxemic respiratory failure: Secondary to pulmonary emboli. Continue supplemental O2, wean as tolerated. 2-step pulse ox before DC. (3) Nocturnal hypoxia: Nocturnal pulse oximetry performed with O2 2 LPM showed 15 min of desaturation with sats as low as 77%. Nocturnal hypoxia probably multifactorial- COPD, acute PE, possible sleep apnea. CPAP attempted, but could not tolerate it because of claustrophobia. May be able to tolerate nasal mask or nasal pillow, but hospital does not have those options. Will need complete sleep study as outpatient. (4) Bradycardia: Episodes of junctional rhythm and sinus bradycardia. Metoprolol held. Nocturnal hypoxia noted on pulse oximetry. (5) COPD (chronic obstructive pulmonary disease): Continue Anoro Ellipta + albuterol PRN. Receiving prednisone x 5 days. (6) CAD (coronary artery disease): History of CAD, s/p PCI. Elevated troponin as discussed below. Metoprolol held for bradycardia. Continue ASA and statin. (7) Elevated troponin I level: Probable demand ischemia and/or RV strain from pulmonary emboli. (8) Delayed surgical wound healing: Wound Care consulted. Wound Vac applied. Continue IV piperacillin / tazobactam for wound infection + peritonitis; stop date 08/31. (9) Anemia: Baseline Hgb ~ 14-15. [place] [facility] [place] 10[place] Hgb at tme of admission was 12.3. Hgb today = 10.8. Anemia not surprising given prolonged hospitalization, surgeries, infection, multiple phlebotomies. Could have B12 deficiency due to ileocecectomy. No gross GI bleeding on IV heparin. Fe studies, B12, folate OK. Check fecal OB. (10) Hypokalemia: K = 3.2. Replace. Follow. (11) DVT prophylaxis: Receiving treatment for acute VTE as discussed above. (12) Discharge planning issues: Patient hopes to be discharged to home. Will need home health services. Internal Medicine follow-up with Dr. Alberto. [place] [facility] [place] this [place]. Admission and Anticipated Discharge Date Admission Date: August 18, 2019 Anticipated date of discharge: 08/22/19 Subjective Recheck for pulmonary emboli and other problems. Seen this morning with Wound Care Nurse during WoundVac change for abdominal incision. Patient seen again in their room around 1610. Daphne participated by phone. Feels better. Less SOB. Cough improved. No pleuritic chest pain. Could not tolerate CPAP due to claustrophobia. Ambulating. Review of Systems: Constitutional- no fever. Cardiac- no chest pain. Pulmonary- as noted above. GI- no nausea, vomiting, diarrhea, melena, hematochezia. - no urinary symptoms. Otherwise, as noted above. Physical Exam Constitutional: no acute distress Respiratory: no respiratory distress Auscultation: + rales (few bibasilar) and + rhonchi (few) Cardiovascular: Rate/Rhythm: regular rate and regular rhythm Heart Sounds: no gallop and no cardiac rub Vessels: no JVD Extremities: no calf tenderness and no edema Gastrointestinal (Abdomen): Inspection/Auscultation: normal bowel sounds; + abdomen abnormal to inspection (midline incision, stapled, open areas mid and inf, serosanguinous drainage) Percussion/Palpation: abdomen soft; abdomen nontender Skin: no rashes, warm and dry Psychiatric: Orientation: alert and oriented x 3 Results & Data ([facility]) Vital Signs (Past 12 Hours) Vital Signs Temp Pulse Pulse Resp BP Pulse Ox 08/24/19 18:48 36.5 C 90 19 132/81 94 08/24/19 16:00 71 08/24/19 15:08 36.3 C L 87 18 126/80 91 08/24/19 13:50 94 08/24/19 11:01 36.6 C 75 20 131/76 91 08/24/19 08:00 62 Laboratory Results 08/24/19 05:31 08/24/19 05:31
[2019-08-25] MEDS: PIPERACILLIN/TAZOBACTAM 4.5 GM in DEXTROSE 5% 100 ML IV SCH ×4 (00:55→23:41)
[2019-08-25] MEDS: OLMESARTAN MEDOXOMIL 20 MG TAB PO SCH (08:36)
[2019-08-25] MEDS: POTASSIUM CHLORIDE PWD 20 MEQ PACK PO SCH ×3 (08:36→21:36)
[2019-08-25] MEDS: ASPIRIN 81 MG ECTAB PO SCH (08:37)
[2019-08-25] MEDS: ATORVASTATIN 40 MG TAB PO SCH (08:37)
[2019-08-25] MEDS: PANTOprazole 40 MG TAB PO SCH (08:37)
[2019-08-25] MEDS: APIXABAN 5 MG TABLET PO SCH ×2 (08:38→21:36)
[2019-08-25] MEDS: UMECLIDINIUM/VILANTEROL 62.5/25MCG 7 PUFFS/INHALER INH SCH (08:38)
[2019-08-25] MEDS: guaiFENesin 600 MG TABCR PO SCH ×2 (08:39→21:35)
--- NOTE | 2019-08-25 15:35 | Hospitalist Progress Note ---
Date of Service August 25, 2019 Assessment & Plan (1) Pulmonary embolism: Presented with hypoxia. CTA chest demonstrated bilateral pulmonary emboli. Venous duplex lower extremities showed DVT left popliteal, posterior tibial, and peroneal veings. Acute provoked VTE (PE's & DVT), present on admission. Echo showed moderate RV hypokinesis. Receiving IV heparin. Pros and cons of different anticoagulation options discussed with patient, , Cardiology. Patient prefers oral therapy with apixaban. Transitioned from IV heparin to apixaban this morning. Will need f/u echo in 3-6 months. Probable duration of anticoagulation 6 months. (2) Acute hypoxemic respiratory failure: Secondary to pulmonary emboli. Continue supplemental O2, wean as tolerated. 2-step pulse ox before DC. (3) Nocturnal hypoxia: Nocturnal pulse oximetry performed with O2 2 LPM showed 15 min of desaturation with sats as low as 77%. Nocturnal hypoxia probably multifactorial- COPD, acute PE, possible sleep apnea. CPAP attempted, but could not tolerate it with face mask because of claustrophobia. May be able to tolerate nasal mask or nasal pillow, but hospital does not have those options. Will need complete sleep study as outpatient. (4) Bradycardia: Episodes of junctional rhythm and sinus bradycardia. Metoprolol held. Nocturnal hypoxia noted on pulse oximetry. (5) COPD (chronic obstructive pulmonary disease): Continue Anoro Ellipta + albuterol PRN. Received prednisone x 5 days. (6) CAD (coronary artery disease): History of CAD, s/p PCI. Elevated troponin as discussed below. Metoprolol held for bradycardia. Continue ASA and statin. (7) Elevated troponin I level: Probable demand ischemia and/or RV strain from pulmonary emboli. (8) Delayed surgical wound healing: Wound Care consulted. Wound Vac applied. Continue IV piperacillin / tazobactam for wound infection + peritonitis; stop date 08/31. (9) Anemia: Baseline Hgb ~ 14-15. [place] [facility] [place] 10.[place] Hgb at tme of admission was 12.3. Hgb yesterday = 10.8. Anemia not surprising given prolonged hospitalization, surgeries, infection, multiple phlebotomies. Could have B12 deficiency due to ileocecectomy. No gross GI bleeding on IV heparin. Fe studies, B12, folate OK. Check fecal OB. (10) Hypokalemia: K as low as 3.1.. Replace. K today = 3.5. Follow. (11) DVT prophylaxis: Receiving treatment for acute VTE as discussed above. (12) Discharge planning issues: Patient hopes to be discharged to home. Will need home health services. Internal Medicine follow-up with Dr. Alberto. Admission and Anticipated Discharge Date Admission Date: August 18, 2019 Anticipated date of discharge: 08/22/19 Subjective Recheck for pulmonary emboli and other problems. Patient seen again in their room around 1150. Daphne participated by phone. Doing well. No new problems. Less SOB. Cough improved. No pleuritic chest pain. Review of Systems: Constitutional- no fever. Cardiac- no chest pain. Pulmonary- as noted above. GI- no nausea, vomiting, diarrhea, melena, hematochezia. - no urinary symptoms. Otherwise, as noted above. Physical Exam Constitutional: no acute distress Respiratory: no respiratory distress Auscultation: + rales (few bibasilar) and + rhonchi (few) Cardiovascular: Rate/Rhythm: regular rate and regular rhythm Heart Sounds: no gallop and no cardiac rub Vessels: no JVD Extremities: no calf tenderness and no edema Gastrointestinal (Abdomen): Inspection/Auscultation: normal bowel sounds; + abdomen abnormal to inspection (wearing abdominal binder) Percussion/Palpation: abdomen soft; abdomen nontender Skin: no rashes, warm and dry Psychiatric: Orientation: alert and oriented x 3 Results & Data ([facility]) Vital Signs (Past 12 Hours) Vital Signs Temp Pulse Pulse Pulse Resp BP Pulse Ox 08/25/19 14:52 88 08/25/19 11:47 36.6 C 84 18 119/77 95 08/25/19 08:00 36.3 C L 77 18 136/78 94 08/25/19 07:21 84 08/25/19 04:51 36.4 C L 80 21 134/87 94 Laboratory Results Laboratory Results - last 24 hr 08/25/19 07:12 Potassium 3.5
[2019-08-26 07:06] LABS: Hematocrit (blood only) 36.4 % (42-52); Hemoglobin 11.6 g/dL (14.0-18.0); Mean Corpuscular Hemoglobin 31.5 pg (25-34); Mean Corpuscular Hgb Conc 31.9 g/dL (32-36); Mean Corpuscular Volume 98.9 fL (80-100); Mean Platelet Volume 10.8 fL (7.4-10.4); Platelet Count 299 K/uL (130-400); RDW Coefficient of Variation 14.9 % (11.5-14.5); RDW Standard Deviation 54.1 fL (36.4-46.3); Red Blood Count 3.68 M/uL (4.7-6.1); White Blood Count 9.88 K/uL (4.8-10.8)
[2019-08-26 07:38] LABS: BUN Creatinine Ratio 16.6 (10-20); Calcium 8.3 mg/dl (8.5-10.1); Creatinine Clr Calc Pharmacy 96.1 ml/min; Est GFR (African American) 106.8; Est GFR (Non-African American) 92.2; Potassium 3.9 mmol/L (3.5-5.1)
[2019-08-26] MEDS: ASPIRIN 81 MG ECTAB PO SCH (08:23)
[2019-08-26] MEDS: PIPERACILLIN/TAZOBACTAM 4.5 GM in DEXTROSE 5% 100 ML IV SCH ×2 (08:23→16:18)
[2019-08-26] MEDS: POTASSIUM CHLORIDE PWD 20 MEQ PACK PO SCH ×3 (08:24→20:35)
[2019-08-26] MEDS: guaiFENesin 600 MG TABCR PO SCH ×2 (08:24→20:35)
[2019-08-26] MEDS: ATORVASTATIN 40 MG TAB PO SCH (08:24)
[2019-08-26] MEDS: OLMESARTAN MEDOXOMIL 20 MG TAB PO SCH (08:24)
[2019-08-26] MEDS: PANTOprazole 40 MG TAB PO SCH (08:24)
[2019-08-26] MEDS: APIXABAN 5 MG TABLET PO SCH ×2 (08:24→20:36)
[2019-08-26] MEDS: UMECLIDINIUM/VILANTEROL 62.5/25MCG 7 PUFFS/INHALER INH SCH (08:46)
[2019-08-26] MEDS ORDERED: SODIUM CHLORIDE 0.65% NA SOLN 45 ML (OCEAN) ONE (11:27)
--- NOTE | 2019-08-26 20:03 | Hospitalist Progress Note ---
Date of Service August 26, 2019 Assessment & Plan (1) Pulmonary embolism: Presented with hypoxia. CTA chest demonstrated bilateral pulmonary emboli. Venous duplex lower extremities showed DVT left popliteal, posterior tibial, and peroneal veings. Acute provoked VTE (PE's & DVT), present on admission. Echo showed moderate RV hypokinesis. Receiving IV heparin. Pros and cons of different anticoagulation options discussed with patient, , Cardiology. Patient prefers oral therapy with apixaban. Transitioned from IV heparin to apixaban this morning. Will need f/u echo in 3-6 months. Probable duration of anticoagulation 6 months. (2) Acute hypoxemic respiratory failure: Secondary to pulmonary emboli. Continue supplemental O2, wean as tolerated. 2-step pulse ox before DC. (3) Nocturnal hypoxia: Nocturnal pulse oximetry performed with O2 2 LPM showed 15 min of desaturation with sats as low as 77%. Nocturnal hypoxia probably multifactorial- COPD, acute PE, possible sleep apnea. CPAP attempted, but could not tolerate it with face mask because of claustrophobia. May be able to tolerate nasal mask or nasal pillow, but hospital does not have those options. Will need complete sleep study as outpatient. (4) Bradycardia: Episodes of junctional rhythm and sinus bradycardia. Metoprolol held. Nocturnal hypoxia noted on pulse oximetry. (5) COPD (chronic obstructive pulmonary disease): Continue Anoro Ellipta + albuterol PRN. Received prednisone x 5 days. (6) CAD (coronary artery disease): History of CAD, s/p PCI. Elevated troponin as discussed below. Metoprolol held for bradycardia. Continue ASA and statin. (7) Elevated troponin I level: Probable demand ischemia and/or RV strain from pulmonary emboli. (8) Delayed surgical wound healing: Wound Care consulted. Wound Vac applied. Continue IV piperacillin / tazobactam for wound infection + peritonitis; stop date 08/31. (9) Anemia: Baseline Hgb ~ 14-15. Hgb's at [facility] [place] as low as 10.7. Hgb at time of admission was 12.3 and fell as low as 11.6. Anemia not surprising given prolonged hospitalization, surgeries, infection, multiple phlebotomies. Could have B12 deficiency due to ileocecectomy. No gross GI bleeding on IV heparin. Fe studies, B12, folate OK. Check fecal OB. Hgb today = 1.6. (10) Hypokalemia: K as low as 3.1.. Replacing. K today = 3.9. Follow. (11) DVT prophylaxis: Receiving treatment for acute VTE as discussed above. (12) Discharge planning issues: Patient hopes to be discharged to home. Will need home health services. Rx for Zosyn given to Case Management. Would like walker for ambulation. No longer feels that he needs hospital bed. Will need home O2 + CPAP trial. Internal Medicine follow-up with Dr. Alberto. Admission and Anticipated Discharge Date Admission Date: August 18, 2019 Anticipated date of discharge: 08/22/19 Subjective Recheck for pulmonary emboli and other problems. Patient seen again in their room around 1010. Daphne participated by phone. Doing fairly well. Somewhat tired today. No new problems. No dyspnea at rest. Cough improved. No pleuritic chest pain. Ambulating. Review of Systems: Constitutional- no fever. Cardiac- no chest pain. Pulmonary- as noted above. GI- no nausea, vomiting, diarrhea, melena, hematochezia. - no urinary symptoms. Otherwise, as noted above. Physical Exam Constitutional: no acute distress Respiratory: no respiratory distress Auscultation: + rales (few bibasilar) Cardiovascular: Rate/Rhythm: regular rate and regular rhythm Heart Sounds: no gallop and no cardiac rub Vessels: no JVD Extremities: no calf tenderness and no edema Gastrointestinal (Abdomen): Inspection/Auscultation: normal bowel sounds; + abdomen abnormal to inspection (wearing abdominal binder) Percussio n/Palpation: abdomen soft; abdomen nontender Skin: no rashes, warm and dry Psychiatric: Orientation: alert and oriented x 3 Results & Data ([facility]) Vital Signs (Past 12 Hours) Vital Signs Temp Pulse Pulse Pulse Pulse Pulse Pulse 08/26/19 18:55 36.7 C 87 08/26/19 16:00 118 H 08/26/19 15:04 36.7 C 101 H 08/26/19 12:02 36.3 C L 96 H 08/26/19 08:25 115 H 112 H 114 H 97 H Resp Resp Resp Resp Resp BP Pulse Ox 08/26/19 18:55 18 123/77 91 08/26/19 16:00 08/26/19 15:04 20 105/67 92 08/26/19 12:02 20 124/75 89 L 08/26/19 08:25 18 18 18 16 Pulse Ox Pulse Ox Pulse Ox Pulse Ox 08/26/19 18:55 08/26/19 16:00 08/26/19 15:04 08/26/19 12:02 08/26/19 08:25 91 85 L 92 92 Laboratory Results 08/26/19 06:53 08/26/19 06:53
[2019-08-27] MEDS: PIPERACILLIN/TAZOBACTAM 4.5 GM in DEXTROSE 5% 100 ML IV SCH ×2 (00:23→08:38)
[2019-08-27] MEDS: POTASSIUM CHLORIDE PWD 20 MEQ PACK PO SCH ×2 (08:28→13:40)
[2019-08-27] MEDS: guaiFENesin 600 MG TABCR PO SCH (08:28)
[2019-08-27] MEDS: APIXABAN 5 MG TABLET PO SCH (08:29)
[2019-08-27] MEDS: OLMESARTAN MEDOXOMIL 20 MG TAB PO SCH (08:29)
[2019-08-27] MEDS: UMECLIDINIUM/VILANTEROL 62.5/25MCG 7 PUFFS/INHALER INH SCH (08:29)
[2019-08-27] MEDS: ASPIRIN 81 MG ECTAB PO SCH (08:29)
[2019-08-27] MEDS: ATORVASTATIN 40 MG TAB PO SCH (08:29)
[2019-08-27] MEDS: PANTOprazole 40 MG TAB PO SCH (08:30)
[2019-08-27] MEDS ORDERED: PIPERACILL/TAZOBAC CONSULT ACTIVE PRN (10:17)
[2019-08-27 12:16] VITALS: BP 118/77; PULSE 97; TEMP 97.5; O2SAT 92
[2019-08-27] MEDS ORDERED: PIPERACILLIN/TAZOBACTAM 4.5 GM in DEXTROSE 5% 100 ML IV ONE (13:00)
--- NOTE | 2019-08-27 13:24 | Hospitalist Progress Note ---
Date of Service August 27, 2019 Assessment & Plan (1) Pulmonary embolism: Presented with dyspnea and hypoxia. CTA chest demonstrated bilateral pulmonary emboli. Venous duplex lower extremities showed DVT left popliteal, posterior tibial, and peroneal veins. Acute provoked VTE (PE's & DVT), present on admission. Echo showed moderate RV hypokinesis. Received IV heparin. Pros and cons of different anticoagulation options discussed with patient, , Cardiology. Patient opted for apixaban. Transitioned from IV heparin to apixaban on 08/22. Probable duration of anticoagulation 6 months. Will need f/u echo in 3-6 months. (2) Acute hypoxemic respiratory failure: O2 sats as low as 85% on 6 L [place] day of admission. Hypoxia secondary to pulmonary emboli + underlying COPD. Oxygenation improved and supplemental O2 was weaned. 2-step pulse ox 08/25: O2 sat 95% RA at rest O2 sat 85% RA with exercise. O2 2 LPM recommended with activity. Arrangements made for portable O2. (3) Nocturnal hypoxia: Nocturnal pulse oximetry performed with O2 2 LPM showed 15 min of desaturation with sats as low as 77%. Nocturnal hypoxia probably multifactorial- COPD, acute PE, possible sleep apnea. CPAP attempted, but could not tolerate it with face mask because of claustrophobia. May be able to tolerate nasal mask or nasal pillow, but hospital does not have those options. Discharge on nocturnal O2 2 LPM + CPAP trial. Will need complete sleep study as outpatient. (4) Bradycardia: Episodes of junctional rhythm and sinus bradycardia. Metoprolol discontinued. Nocturnal hypoxia noted on pulse oximetry. (5) COPD (chronic obstructive pulmonary disease): Continue Anoro Ellipta + albuterol PRN. Received prednisone x 5 days. (6) CAD (coronary artery disease): History of CAD, s/p PCI. Elevated troponin as discussed below. Metoprolol held for bradycardia. Continue ASA and statin. (7) Elevated troponin I level: Probable demand ischemia and/or RV strain from pulmonary emboli. (8) Delayed surgical wound healing: Wound Care consulted. Wound Vac applied. Continue IV piperacillin / tazobactam for wound infection + peritonitis; stop date 08/31. (9) Anemia: Baseline Hgb ~ 14-15. [place] [facility] [place] 10[place] Hgb at time of admission was 12.3 and fell as low as 10.3. Anemia not surprising given prolonged hospitalization, surgeries, infection, multiple phlebotomies. Could have B12 deficiency due to ileocecectomy. No gross GI bleeding on IV heparin. Fe studies, B12, folate OK. Hgb yesterday = 11.6. Follow. (10) Hypokalemia: K as low as 3.1. Replaced. K yesterday = 3.9. No need for additional replacement at this time. Recheck in clinic. (11) DVT prophylaxis: Receiving treatment for acute VTE as discussed above. (12) Discharge planning issues: Discharged to home. Will need home health services. Rx for Zosyn given to Case Management. Needs walker for ambulation. Hospital bed not necessary. Home O2 + CPAP trial. Wound Vac per Wound Care Team. Internal Medicine follow-up with Dr. Alberto. Cardiology follow-up with Dr. Ferris. Wound Care follow-up with [facility]. Surgical follow-up with team at [facility]. Admission and Anticipated Discharge Date Admission Date: August 18, 2019 Anticipated date of discharge: 08/22/19 Subjective Recheck for pulmonary emboli and other problems. Patient seen again in their room around 1310. Daphne participated by phone. Doing well. No new problems. No dyspnea at rest. Cough improved. No pleuritic chest pain. Ambulating. Very ready to go home. Review of Systems: Constitutional- no fever. Cardiac- no chest pain. Pulmonary- as noted above. GI- no nausea, vomiting, diarrhea, melena, hematochezia. - no urinary symptoms. Otherwise, as noted above. Physical Exam Constitutional: no acute distress Respiratory: no respiratory distress Auscultation: lungs clear to auscultation bilaterally Cardiovascular: Rate/Rhythm: regular rate and regular rhythm Heart Sounds: no gallop and no cardiac rub Vessels: no JVD Extremities: no calf tenderness and no edema Gastrointestinal (Abdomen): Inspection/Auscultation: normal bowel sounds; + abdomen abnormal to inspection (midline incision, no significant erythema or drainage, open areas as before) Percussion/Palpation: abdomen soft; abdomen nontender Skin: no rashes, warm and dry Psychiatric: Orientation: alert and oriented x 3 Results & Data ([facility]) Vital Signs (Past 12 Hours) Vital Signs Temp Pulse Pulse Pulse Pulse Resp BP 08/27/19 12:00 36.4 C L 97 H 16 118/77 08/27/19 08:00 93 H 08/27/19 07:45 36.6 C 81 20 136/88 08/27/19 03:47 37.2 C 90 18 130/87 08/27/19 03:11 82 81 08/27/19 01:41 83 Pulse Ox Pulse Ox Pulse Ox 08/27/19 12:00 92 08/27/19 08:00 08/27/19 07:45 96 08/27/19 03:47 97 08/27/19 03:11 93 84 L 08/27/19 01:41 91
--- NOTE | 2019-08-28 06:51 | Discharge Summary ---
Date of Service Date of Admission: 08/18/19 Date of Discharge: 08/27/19 Admission HPI Per Admitting Provider 74-year-old man recently operated on presented to [facility] ER with worsening shortness of breath and hypoxia. The patient was at [facility] recovering from a complicated abdominal surgery and 1 month at [facility]. 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 He was taken to the OR emergently for an exploratory laparotomy, ileocecal. 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 Postoperatively he developed an ileus and on 07/27 he underwent GG challenge, which showed ongoing dilated loops of small bowel. A repeat repeat CT of the abdomen pelvis on two 07/28 showed concern for early small bowel obstruction and persistent dilation of the small bowel. He was started on TPN. He was taken back to the OR on 08/03 for an exploratory laparotomy, lysis of adhesions and decompressive enterotomy. Postoperatively he developed acute hypoxic respiratory failure and hypotension was transferred to the ICU for close monitoring. He briefly required low-dose phenylephrine and was found to be RSV positive. He was stabilized and transferred back to the floor on . On 08/04 a rapid response was called secondary to altered mental status and hypoxia. He was transferred back to the ICU and placed on high flow nasal cannula. His respiratory status improved and he was weaned to 1 L nasal cannula. He had a return of bowel function and slowly was transitioned to a regular diet coming off of TPN. He developed a surgical wound infection at his incision site and the wound was left open to allow drainage and packed daily. He was evaluated for peritonitis and Zosyn IV was recommended until 08/30 by infectious disease. Rehabilitation was recommended and he was discharged on August 14 to [facility] here in [place]. Since that time he is required increasing amounts of oxygen and work-up this evening with a CT PE revealed evidence of a pulmonary embolus that is bilateral. He has no pain or swelling in his legs. He denies any chest pain. He is reporting some nonproductive cough with occasional production of sputum. He denies any fevers or chills. He denies any GI symptoms. He has no excessive pain in his abdomen. Principal Diagnosis acute bilateral pulmonary emboli (present on admission) acute DVT left lower extremity (present on admission) OTHER ACUTE / NEW DIAGNOSES: acute hypoxic respiratory failure nocturnal hypoxia right ventricular strain bradycardia - junctional rhythm and sinus bradycardia anemia, multifactorial hypokalemia Discharge Data Allergies Allergy/AdvReac Type Severity Reaction Status Date / Time Sulfa (Sulfonamide Allergy Unknown TOLD A Verified 08/18/19 17:05 Antibiotics) CHILD TO NOT USE Consultations 08/18/19 18:33 ED Decision to Admit Stat 08/18/19 20:24 Consult Case Management - Discharge Planning Routine Consult Pulmonology Routine 08/19/19 07:45 Consult Cardiology Routine 08/20/19 15:30 Consult Wound Care Provider Routine 08/27/19 13:24 Burn CD for patient Routine Ordered Studies 08/18/19 16:32 CT angio chest PE protocol Stat 08/18/19 20:24 US venous doppler LE BI Routine 08/18/19 23:44 CT head/brain wo con Urgent Hospital Course (1) Pulmonary embolism: Presented with dyspnea and hypoxia in setting of recent surgeries and prolonged hospitalization. CTA chest demonstrated bilateral pulmonary emboli. Venous duplex lower extremities showed DVT left popliteal, posterior tibial, and peroneal veins. Acute provoked VTE (PE's & DVT), present on admission. Echo showed moderate RV hypokinesis. Received IV heparin. Pros and cons of different anticoagulation options discussed with patient, , Cardiology. Patient opted for apixaban. Transitioned from IV heparin to apixaban on 08/22. Probable duration of anticoagulation 6 months. Will need f/u echo in 3-6 months. (2) Acute hypoxemic respiratory failure: O2 sats as low as 85% on 6 L Oxymask day of admission. Hypoxia secondary to pulmonary emboli + underlying COPD. Oxygenation improved and supplemental O2 was weaned. 2-step pulse ox 08/25: O2 sat 95% RA at rest O2 sat 85% RA with exercise. O2 2 LPM recommended with activity. Arrangements made for portable O2. (3) Nocturnal hypoxia: Nocturnal pulse oximetry performed with O2 2 LPM showed 15 min of desaturation with sats as low as 77%. Nocturnal hypoxia probably multifactorial- COPD, acute PE, possible sleep apnea. CPAP attempted, but could not tolerate it with face mask because of claustrophobia. May be able to tolerate nasal mask or nasal pillow, but hospital does not have those options. Discharge on nocturnal O2 2 LPM + CPAP trial. Will need complete sleep study as outpatient. (4) Bradycardia: Episodes of junctional rhythm and sinus bradycardia attributed to acute pulmonary emboli and nocturnal hypoxia. Metoprolol discontinued. (5) COPD (chronic obstructive pulmonary disease): Continue Anoro Ellipta + albuterol PRN. Received prednisone x 5 days. (6) CAD (coronary artery disease): History of CAD, s/p PCI. Elevated troponin as discussed below. Metoprolol held for bradycardia. Continue ASA and statin. (7) Elevated troponin I level: Probable demand ischemia and/or RV strain from pulmonary emboli. (8) Delayed surgical wound healing: Wound Care consulted. Wound Vac applied. IV piperacillin / tazobactam was continued for wound infection (although a few doses were missed). Discharge on home IV piperacillin / tazobactam with stop date 08/31. (9) Anemia: Baseline Hgb ~ 14-15. [place] [facility] [place] low as 10.7. Hgb at time of admission was 12.3 and fell as low as 10.3. Anemia not surprising given prolonged hospitalization, surgeries, infection, multiple phlebotomies. Could have B12 deficiency due to ileocecectomy. No gross GI bleeding on IV heparin. Fe studies, B12, folate OK. Hgb 08/25 was 11.6. Follow H/H and vitamin B12 level periodically. (10) Hypokalemia: K as low as 3.1. Replaced. K 08/25 was 3.9. No need for additional replacement at this time. Recheck in clinic. (11) DVT prophylaxis: Received treatment for acute VTE as discussed above. (12) Discharge planning issues: Discharged to home. Will need home health services. Rx for Zosyn given to Case Management. Needs walker for ambulation. Hospital bed not necessary. Home O2 + CPAP trial. Wound Vac per Wound Care Team. Internal Medicine follow-up with Dr. Alberto. Cardiology follow-up with Dr. Ferris. W[facility] follow[facility] with [facility]. Surgical follow-up with team at [facility]. Total Time Total Time Spent Total Time Spent (In Minutes): 45 Discharge Plan Discharge Items Patient Disposition: Home - Home Health Services Reason For Visit: shortness of breath Discharge Diagnosis: pulmonary emboli (blood clots in lungs) Condition on Discharge: Good Activity: As commented below Activity Comment: Gradually increase as tolerated. Use walker for safety. Non-emergency contact: Primary Care Provider and Hospitalist Call non-emergency contact if: you have any medication questions, your symptoms worsen and your temperature is above 101 Follow-up/Referrals: Delmar Alberto MD [Primary Care Provider] - 08/30/19 11:20 am (08/30/2019 11:20 AM Provider Delmar Alberto MD Department General Internal Medicine [facility] ) Diet: Heart Healthy Addtl Attending Provider Instructions: MEDICATION CHANGES: piperacillin / tazobactam (Zosyn) 4.5 gms IV every 8 hours stop date 09/01/19 PICC line should be removed after last dose apixaban (Eliquis) 5 mg pills take for 6 months first prescription: (use dietary clerk's coupon) 10 mg (2 pills) twice a day for 7 days (you started 10 mg twice a day on 08/22; continue that dose for 5 more doses --> 08/29/19) then 5 mg twice a day subsequent prescription + refills (September - January) 5 mg twice a day STOP metoprolol tartrate because of slow heart rhythm SUMMARY OF TEST RESULTS: CT scan of chest showed pulmonary emboli (blood clots) in both lungs. Ultrasound of legs showed blood clots in left leg. Echocardiogram (ultrasound of heart) showed some strain affecting the right heart. This finding could be related to COPD, pulmonary emboli, or both. Oxygen levels low while walking and sleeping. RECOMMENDATIONS FOR FOLLOW-UP: Wound Care as instructed by Wound Care team. Surgical follow-up in [place]. You will be contacted with appointment. Please ask Dr. Alberto to order: basic metabolic profile and CBC in about 1 week repeat echocardiogram in 3-6 months sleep study Cardiology follow-up with Dr. Ferris in about [address] Alberto for referral. Office will contact you with appointment. OTHER INSTRUCTIONS: Oxygen 2 liters / minute while sleeping and walking. Monitor your oxygen levels. Seek medical attention if significant change (e.g., persistent saturations less than 88%). Call 911 if associated with chest pain or trouble breathing. Try CPAP with nasal attachments. Use walker for safety. Continue to do breathing exercises with incentive spirometry and flutter valve. Seek medical attention if you have: * temperature above 101 * chest pain or trouble breathing * abdominal pain, nausea, vomiting * diarrhea, dark stools or bloody stools * any unanswered questions or concerns Call 911 if symptoms are severe. Please take good care of yourself. Call if you have any questions or problems. You can reach a [facility] hospitalist on duty at [facility] 24 hours a day by calling [phone]. My cell # is [phone]. Pending Studies at Discharge: No Stand-Alone Forms: My [facility], Smoking Cessation Medications and DC Order Prescriptions: New (DME) Oxygen Home Liters Per Minute See Rx Instructions .ROUTE .MEDSUPPLY Qty: 1 RF: 0 (DME) CPAP Machine Misc See Rx Instructions .ROUTE .MEDSUPPLY Qty: 1 RF: 0 (DME) Wheeled Walker Misc See Rx Instructions .ROUTE .MEDSUPPLY Qty: 1 RF: 0 Eliquis 5 mg (74 tabs) tablets,dose pack See Rx Instructions .ROUTE .COMPLEX Qty: 74 RF: 0 Eliquis 5 mg tablet 5 mg PO BID Qty: 60 RF: 4 albuterol sulfate 90 mcg/actuation Hfa Aerosol Inhaler 2 puffs INHALATION Q6 PRN (Reason: Shortness Of Breath Or Wheezing) Qty: 18 RF: 5 Continued atorvastatin [Lipitor] 80 mg tablet 80 mg PO HS RF: 0 aspirin 81 mg Tablet,Delayed Release (Dr/Ec) 81 mg PO QAM RF: 0 omeprazole 20 mg capsule,delayed release(DR/EC) 20 mg PO QAM RF: 0 olmesartan [Benicar] 20 mg tablet 20 mg PO QAM RF: 0 Anoro Ellipta 62.5-25 mcg/actuation blister with device 1 inh INHALATION QAM RF: 0 acetaminophen 325 mg Tablet 650 mg PO QID PRN (Reason: Pain) RF: 0 sodium chloride 0.9 % (flush) Syringe 10 ml IV Q8H RF: 0 heparin lock flush (porcine) 100 unit/mL Solution 0 unit IV Q8 RF: 0 Changed piperacillin-tazobactam [Zosyn] 4.5 gram Recon Soln 4.5 g IV Q8H Qty: 16 RF: 0 Discontinued metoprolol succinate [Toprol XL] 50 mg tablet extended release 24 hr 50 mg PO QAM RF: 0 Discharge Orders: Discharge Order (Routine); Ordered 08/27/19 Ordered By: Sunil Dwyer Admission Data Admit Date/Time: 08/18/19 18:46 Attending Provider: Sunil Dwyer Admit Provider: Destiny Burroughs Primary Care Provider: Delamr Alberto Other Providers: Destiny Burroughs ; Srikanth Armenta ; Axel Ferris ; [facility] ; Tessa Singleton ; [facility] Other Interventions: Discharge Summary Assessment (RN) Last Done: 08/27/19 13:56 DC Date/Time DO NOT enter until pt leaves facility: 08/27/19 14:57
== END 2019-08-27 14:57 | disposition home health service (06) | DRG 299 ==
LOC: ED 16:04 → 2S 18:46 → SUATTDRO 18:46 → 2S 19:51

== ENCOUNTER 2023-04-04 08:10 | Inpatient (IN) ==
--- NOTE | 2023-04-04 08:38 | Emergency Department Note ---
Impression & Plan COPD (chronic obstructive pulmonary disease), Cough ADMIT ED Provider Note HPI: History obtained from patient. The patient is a 78-year-old gentleman with history of coronary artery disease, presents emergency department with chief complaint of cough and sinus congestion for over the past week. Patient states his symptoms do not seem to be improving and therefore he came to the ED to be evaluated. Arrival here to the ED the patient is hemodynamically stable, he is saturating at 90% on room air without increased work of breathing. Patient denies any recent fevers but states he has had a wet cough productive for sputum. ROS: - Per HPI Differential Diagnosis: Bacterial pneumonia, viral upper respiratory infection with cough, acute bronchitis, COPD exacerbation, amongst other potential pathologies. *Outpatient medications and allergy history reviewed. *Pertinent external medical records reviewed PE: General: Alert HEENT: Normocephalic, trachea midline Eyes: Extraocular eye movement is intact, no scleral erythema Pulmonary: Coarse bilateral breath sounds with rhonchi at the bases and mild expiratory wheezing Cardio: Regular rate and rhythm GI: Abdomen is soft to palpation : No suprapubic tenderness MSK: No evidence of trauma or malformation of the extremities, no edema Skin: No evidence of rash Neuro: Alert, no focal deficits Psychiatric: Cooperative INDEPENDENT INTERPRETATIONS: property assessment monitor: (As interpreted by myself): - An order was placed for continuous cardiac monitoring - Patient was noted to be in sinus rhythm with a rate of 95 EKG: (As interpreted by myself): Rate: 97 Rhythm: Normal sinus rhythm Intervals: QRS 134 ms, otherwise within normal limits ST changes: No ST elevation Time: 0832 Interventions provided in ED: -DuoNeb breathing treatment x 2, IV Solu-Medrol Medical Decision Making: Shortly after the patient arrived IV was established lab work obtained, patient was placed on night monitor. Lab work shows no leukocytosis, hemoglobin is normal, platelet count is normal, CMP does not show any critical findings, troponin is negative x1, EKG per my interpretation shows normal sinus rhythm without any acute ischemic changes. Procalcitonin is noted to be low, viral p camacho testing is negative. Chest x-ray shows the possibility of a low-grade pneumonitis, no obvious focal infiltrate to suggest pneumonia. Patient was given multiple DuoNeb breathing treatments as well as IV Solu-Medrol here in the ED. On my reassessment he states he is feeling improved however co ntinues with harsh cough and has had desaturations here to the ED on room air down to 86% despite the aforementioned therapies. Given this, I did recommend admission and patient was in agreement. He was placed on nasal cannula oxygen with good improvement in his hypoxia. Case was discussed with the on-call midlevel provider for the [facility] service and the patient was placed for admission in stable condition. Consultants/Discussions held with other healthcare providers: - Chelsi Martinez PA-C, Dr. Deras Disposition discussion held by myself with: -Patient and at bedside * CRITICAL CARE TIME: ( 38 ) minutes -Stabilization of hypoxia with oxygen saturations less than 90% on room air requiring supplemental oxygen for correction, time spent at the bedside, discussion with other healthcare providers and arrangement of admission Diagnosis: 1. COPD exacerbation with hypoxia, acute 2. Cough, acute Disposition: Admission Nitin Simon DO Emergency Medicine Past Med/Surg History Medical History (Updated 04/04/23 @ 11:29 by Tawana Martinez PA-C) Arthritis CAD S/P percutaneous coronary angioplasty with stent placement>2003 Cecal volvulus HX COPD (chronic obstructive pulmonary disease) Dyslipidemia GERD (gastroesophageal reflux disease) Hemorrhoids, internal with ligation in 06/2010 Myocardial Infarction 2003 On home oxygen therapy WEARS 2L HS FOR SLEEP APNEA Sleep apnea WEARS 2L AT HS, unable to tolerate CPAP Thoracic aortic aneurysm BEING MONITORED Surgical History (Updated 03/02/23 @ 09:39 by ABDULAZIZ Ugarte) H/O abdominal surgery "ABDOMINAL RECONSTRUCTION/MESH INSERTED" 2020 AT [place] H/O hernia repair One surgery age 18 (right side), then another hernia repair to fix this area in 1997. History of colonoscopy History of exploratory laparotomy 07/20/2019-ileocecectomy, stapled side to side ileocolostomy, post op ileus. 08/03/2019-back to OR for ex lap, lysis of adhesions, and decompressive enterotomy. History of heart artery stent 1 SENT PLACED 2003 ([facility]) >FOLLOWS WITH DR. WARREN History of tooth extraction S/P cholecystectomy (02/27/23) Laparoscopic converted to Open Cholecystectomy with Cholangiogram(Not Applicable) - Jhon Platt MD, FACS S/P partial colectomy 07/20/2019, with anastomosis S/P right cataract extraction Family History Other Melanoma No family history of adverse response to anesthesia Social History Smoking Status: Former smoker Tobacco Type: Cigarettes Second Hand Exposure: Yes (as a child); Do You Dip or Chew Tobacco: No; Hx Alcohol Use: Yes Alcohol type: wine Hx Substance Use: No Preferred Language: Irish Communication Ability: Effective Visual Impairment: No Limitations Credit Administration Manager Required: No Beliefs That Will Affect Care: None marital status: Current Living Situation: Spouse Feels Safe at Home: Yes Safety Concerns: Feels Safe At This Time Assistive Devices: Glasses Allergies Allergies Allergy/AdvReac Type Severity Reaction Status Date / Time Sulfa (Sulfonamide Allergy Unknown TOLD A Verified 04/04/23 12:10 Antibiotics) CHILD TO NOT USE Home Meds Home Medications Medication Instructions Recorded Confirmed aspirin 81 mg tablet,delayed 81 mg PO QAM 07/19/19 04/04/23 release atorvastatin 80 mg tablet (Lipitor) 80 mg PO QAM 07/19/19 04/04/23 omeprazole 20 mg capsule,delayed 20 mg PO QAM 07/19/19 04/04/23 release pbrifrfr-wc-lddgp 300 mcg-K 60 1 tab PO QAM 08/29/19 04/04/23 mcg-lycop 600 mcg-lutein 300 mcg tablet (Centrum Silver Ultra Men's) ipratropium bromide 21 mcg (0.03 2 spray intranasal DAILY 12/22/21 04/04/23 %) nasal spray metoprolol succinate 25 mg 25 mg PO QAM 12/22/21 04/04/23 tablet,extended release 24 hr fluticasone fur. 100 mcg-umeclid 1 inh inhalation DAILY 02/26/23 04/04/23 62.5 mcg-vilant 25 mcg inhalat.powder (Trelegy Ellipta) olmesartan 20 mg tablet 20 mg PO DAILY 02/26/23 04/04/23 diphenhydramine HCl 25 mg capsule 25 - 50 mg PO Q6 PRN allergies 04/04/23 04/04/23 (Benadryl) triamcinolone acetonide 0.1 % 1 applic topical BID PRN .flare ups 04/04/23 04/04/23 topical cream Previous Rx's Medication Instructions Recorded albuterol sulfate 90 mcg/actuation 2 puffs inhalation Q6 PRN 08/27/19 aerosol inhaler Shortness Of Breath Or Wheezing #18 grams Results & Data (ED) Vital Signs Vital Signs - 24 hr 04/04/23 08:10 04/04/23 08:52 04/04/23 08:58 Temperature 36.6 C Temperature Source Temporal Artery Scan Pulse Rate 101 H 100 H Pulse Rate [Right Finger] 94 H Pulse Rhythm [Right Finger] Regular Pulse Strength [Right Finger] Normal Respiratory Rate 18 20 Respiratory Effort / Characteristics Non-Labored Respiratory Depth Normal Respiratory Pattern Regular Blood Pressure 127/79 Blood Pressure [Right Arm] 122/76 Blood Pressure Mean 95 Blood Pressure Mean [Right Arm] 91 Blood Pressure Position [Right Arm] Lying Pulse Oximetry 90 97 Oxygen Delivery Method Room Air Oxygen Flow Rate Sepsis Recent Fever Within 48 Hours No Sepsis New/Unexplained Change in Mental Status N/A Sepsis Action Taken by Nursing No Action Required 04/04/23 10:35 04/04/23 10:25 Temperature Temperature Source Pulse Rate Pulse Rate [Right Finger] 103 H 107 H Pulse Rhythm [Right Finger] Regular Regular Pulse Strength [Right Finger] Normal Normal Respiratory Rate 20 20 Respiratory Effort / Characteristics Non-Labored Non-Labored Respiratory Depth Normal Normal Respiratory Pattern Regular Regular Blood Pressure Blood Pressure [Right Arm] 128/76 Blood Pressure Mean Blood Pressure Mean [Right Arm] 93 Blood Pressure Position [Right Arm] Lying Pulse Oximetry 91 86 L Oxygen Delivery Method Nasal Cannula Room Air Oxygen Flow Rate 2 Sepsis Recent Fever Within 48 Hours Sepsis New/Unexplained Change in Mental Status Sepsis Action Taken by Nursing Laboratory Data 04/04/23 08:42 04/04/23 08:42 Lab Results 04/04/23 04/04/23 04/04/23 Range/Units 08:42 08:42 08:42 WBC 10.18 (4.8-10.8) K/ul RBC 4.89 (4.70-6.10) M/uL Hgb 15.4 (14.0-18.0) g/dl Hct 44.9 (42.0-52.0) % MCV 91.8 (80.0-100.0) fL MCH 31.5 (25.0-34.0) pg MCHC 34.3 (32.0-36.0) g/dL RDW Std Deviation 47.1 H (36.4-46.3) fL RDW Coeff of Beata 14.0 (11.5-14.5) % Plt Count 204 (130-400) K/uL MPV 10.1 (9.4-12.4) fL Immature Gran % (Auto) 0.4 % Neut % (Auto) 61.0 % Lymph % (Auto) 22.6 % [place] % (Auto) 14.6 % Eos % (Auto) 0.9 % Baso % (Auto) 0.5 % Neut # (Auto) 6.21 (1.40-6.50) K/uL Lymph # (Auto) 2.30 (1.20-3.40) K/uL [place] # (Auto) 1.49 H (0.11-0.59) K/uL Eos # (Auto) 0.09 (0.00-0.50) K/uL Baso # (Auto) 0.05 (0.00-0.20) K/uL Immature Gran # (Auto) 0.04 (0.01-0.20) K/uL D-Dimer (0-500) ug/L FEU VBG pH (7.36-7.41) VBG pCO2 (38-50) mmHg VBG pO2 mmHg VBG HCO3 mmol/L VBG O2 Saturation % VBG Base Excess mEq/L Sodium 134 L (136-145) mmol/L Potassium 4.2 (3.5-5.1) mmol/L Chloride 99 (98-107) mmol/L Carbon Dioxide 28 (21-32) mmol/L Anion Gap 7 (3-11) BUN 14 (6-23) mg/dl Creatinine 0.85 (0.6-1.4) mg/dl Est Cr Clr Drug Dosing 78.7 ml/min Est GFR ( Amer) 98.1 ml/min Est GFR (Non-Af Amer) 84.6 ml/min BUN/Creatinine Ratio 16.5 (10-20) Glucose 108 H (70-99(Fasting)) mg/dl Calcium 8.8 (8.6-10.3) mg/dl Total Bilirubin 1.0 (0.2-1.0) mg/dl AST 17 (13-39) U/L ALT 14 (7-52) U/L Alkaline Phosphatase 60 (34-104) U/L Troponin I High Sens 7.2 (0-20) pg/ml Total Protein 7.0 (6.0-8.3) gm/dl Albumin 3.9 (3.4-5.0) gm/dl Globulin 3.1 (2.5-4.0) gm/dl Albumin/Globulin Ratio 1.3 (0.9-2) Lipase 26 (11-82) U/L Procalcitonin < 0.05 (0-0.5) ng/ml Adenovirus (PCR) (NotDetected) B. pertussis DNA (PCR) (NotDetected) B.parapertussis DNA PCR (NotDetected) C. pneumoniae DNA (PCR) (NotDetected) Coronavirus OC43 (PCR) (NotDetected) Coronavirus HKU1 (PCR) (NotDetected) Coronavirus 229E (PCR) (NotDetected) SARS-CoV-2 (PCR) (NotDetected) Coronavirus NL63 (PCR) (NotDetected) Human Metapneumovir PCR (NotDetected) Influenza Type A (PCR) (NotDetected) Influenza Type B (PCR) (NotDetected) M. pneumoniae (PCR) (NotDetected) Parainfluenza 1 (PCR) (NotDetected) Parainfluenza 2 (PCR) (NotDetected) Parainfluenza 3 (PCR) (NotDetected) Parainfluenza 4 (PCR) (NotDetected) RSV (PCR) (NotDetected) Entero/Rhino (PCR) (NotDetected) 04/04/23 04/04/23 04/04/23 Range/Units 08:42 08:42 10:50 WBC (4.8-10.8) K/ul RBC (4.70-6.10) M/uL Hgb (14.0-18.0) g/dl Hct (42.0-52.0) % MCV (80.0-100.0) fL MCH (25.0-34.0) pg MCHC (32.0-36.0) g/dL RDW Std Deviation (36.4-46.3) fL RDW Coeff of Beata (11.5-14.5) % Plt Count (130-400) K/uL MPV (9.4-12.4) fL Immature Gran % (Auto) % Neut % (Auto) % Lymph % (Auto) % [place] % (Auto) % Eos % (Auto) % Baso % (Auto) % Neut # (Auto) (1.40-6.50) K/uL Lymph # (Auto) (1.20-3.40) K/uL [place] # (Auto) (0.11-0.59) K/uL Eos # (Auto) (0.00-0.50) K/uL Baso # (Auto) (0.00-0.20) K/uL Immature Gran # (Auto) (0.01-0.20) K/uL D-Dimer 990 H* (0-500) ug/L FEU VBG pH 7.47 H (7.36-7.41) VBG pCO2 39 (38-50) mmHg VBG pO2 90 mmHg VBG HCO3 28 mmol/L VBG O2 Saturation 97.8 % VBG Base Excess 4.5 mEq/L Sodium (136-145) mmol/L Potassium (3.5-5.1) mmol/L Chloride (98-107) mmol/L Carbon Dioxide (21-32) mmol/L Anion Gap (3-11) BUN (6-23) mg/dl Creatinine (0.6-1.4) mg/dl Est Cr Clr Drug Dosing ml/min Est GFR ( Amer) ml/min Est GFR (Non-Af Amer) ml/min BUN/Creatinine Ratio (10-20) Glucose (70-99(Fasting)) mg/dl Calcium (8.6-10.3) mg/dl Total Bilirubin (0.2-1.0) mg/dl AST (13-39) U/L ALT (7-52) U/L Alkaline Phosphatase (34-104) U/L Troponin I High Sens (0-20) pg/ml Total Protein (6.0-8.3) gm/dl Albumin (3.4-5.0) gm/dl Globulin (2.5-4.0) gm/dl Albumin/Globulin Ratio (0.9-2) Lipase (11-82) U/L Procalcitonin (0-0.5) ng/ml Adenovirus (PCR) Not Detected (NotDetected) B. pertussis DNA (PCR) Not Detected (NotDetected) B.parapertussis DNA PCR Not Detected (NotDetected) C. pneumoniae DNA (PCR) Not Detected (NotDetected) Coronavirus OC43 (PCR) Not Detected (NotDetected) Coronavirus HKU1 (PCR) Not Detected (NotDetected) Coronavirus 229E (PCR) Not Detected (NotDetected) SARS-CoV-2 (PCR) Not Detected (NotDetected) Coronavirus NL63 (PCR) Not Detected (NotDetected) Human Metapneumovir PCR Not Detected (NotDetected) Influenza Type A (PCR) Not Detected (NotDetected) Influenza Type B (PCR) Not Detected (NotDetected) M. pneumoniae (PCR) Not Detected (NotDetected) Parainfluenza 1 (PCR) Not Detected (NotDetected) Parainfluenza 2 (PCR) Not Detected (NotDetected) Parainfluenza 3 (PCR) Not Detected (NotDetected) Parainfluenza 4 (PCR) Not Detected (NotDetected) RSV (PCR) Not Detected (NotDetected) Entero/Rhino (PCR) Not Detected (NotDetected) Administered Medications Discontinued Medications Albuterol (Albut/Ipratrop 3mg/0.5mg Neb 3 Ml Vial) 3 ml NEB NOW STA; Protocol Stop: 04/04/23 08:40 Last Admin: 04/04/23 08:49 Dose: 3 ml Documented By: DIA Albuterol (Albut/Ipratrop 3mg/0.5mg Neb 3 Ml Vial) 3 ml NEB NOW STA; Protocol Stop: 04/04/23 10:06 Last Admin: 04/04/23 10:11 Dose: 3 ml Documented By: Admin: 04/04/23 10:11 Dose: 3 ml Documented By: DIA Guaifenesin (Guaifenesin 600 Mg Tabcr) 600 mg PO ONE ONE Stop: 04/04/23 11:45 Last Admin: 04/04/23 12:04 Dose: 600 mg Documented By: DARREN Ioversol (Optiray 320 500ml) 100 ml IV ONCE ONE Stop: 04/04/23 13:25 Last Admin: 04/04/23 13:25 Dose: 100 ml Documented By: DEBBIE Loratadine (Loratadine 10 Mg Tab) 10 mg PO NOW ONE Stop: 04/04/23 11:45 Last Admin: 04/04/23 12:04 Dose: 10 mg Documented By: ACC Methylprednisolone (Methylprednisolone 125 Mg/2 Ml Vial) 125 mg IV NOW STA Stop: 04/04/23 09:53 Last Admin: 04/04/23 10:12 Dose: 125 mg Documented By: DIA Imaging Data Radiologist's Impression: Chest X-Ray 04/04/23 08:25 XR chest 1V portable HISTORY: Chest pain, nonspecific COMPARISON: Chest 03/02/2023. FINDINGS: Emphysema. No pneumothorax. No pleural effusions. Increased markings at the lung bases is likely due to vascular crowding from the emphysema. However, there is progressive interstitial thickening within the right lower lung zone.. No evidence for pulmonary edema. The heart is normal in size. No acute fractures. IMPRESSION: 1. Emphysema. 2. Progressive interstitial thickening within the right lower lung zone. This could be due to vascular crowding from the advanced emphysema. A low-grade pneumonitis would be difficult to exclude. ACT 112: Negative or not required by law. Electronically signed by: Tevin Silva M.D. 04/04/2023 8:45 AM Discharge Plan Visit Data Chief Complaint: Flu Like Symptoms Stated Complaint: FLU LIKE SYMPTOMS ED Provider: Nitin Simon Discharge Problem: COPD (chronic obstructive pulmonary disease), Cough Patient Disposition: Admitted As Inpatient Condition: Good Discharge Instructions Interventions: ED Discharge Assessment Last Done: 04/04/23 11:57
[2023-04-04] MEDS ORDERED: ALBUT/IPRATROP 3MG/0.5MG NEB 3 ML VIAL NEB STA (08:39)
--- NOTE | 2023-04-04 08:47 | XRay Report ---
XR chest 1V portable HISTORY: Chest pain, nonspecific COMPARISON: Chest 03/02/2023. FINDINGS: Emphysema. No pneumothorax. No pleural effusions. Increased markings at the lung bases is l ikely due to vascular crowding from the emphysema. However, there is progressive interstitial thicken ing within the right lower lung zone.. No evidence for pulmonary edema. The heart is normal in size. No acute fractures. IMPRESSION: 1. Emphysema. 2. Progressive interstitial thickening within the right lower lung zone. This could be due to vascula r crowding from the advanced emphysema. A low-grade pneumonitis would be difficult to exclude. ACT 112: Negative or not required by law. Electronically signed by: Tevin Silva M.D. 04/04/2023 8:45 AM
[2023-04-04 09:07] LABS: Basophils # (auto) 0.05 K/uL (0.00-0.20); Basophils % (auto) 0.5 %; Eosinophils # (auto) 0.09 K/uL (0.00-0.50); Eosinophils % (auto) 0.9 %; Hematocrit (blood only) 44.9 % (42.0-52.0); Hemoglobin 15.4 g/dl (14.0-18.0); Immature Granulocytes # (auto) 0.04 K/uL (0.01-0.20); Immature Granulocytes % (auto) 0.4 %; Lymphocytes % (auto) 22.6 %; Mean Corpuscular Hemoglobin 31.5 pg (25.0-34.0); Mean Corpuscular Hgb Conc 34.3 g/dL (32.0-36.0); Mean Corpuscular Volume 91.8 fL (80.0-100.0); Mean Platelet Volume 10.1 fL (9.4-12.4); Monocytes # (auto) 1.49 K/uL (0.11-0.59); Monocytes % (auto) 14.6 %; Neutrophils # (auto) 6.21 K/uL (1.40-6.50); Platelet Count 204 K/uL (130-400); RDW Standard Deviation 47.1 fL (36.4-46.3); Red Blood Count 4.89 M/uL (4.70-6.10); White Blood Count 10.18 K/ul (4.8-10.8)
[2023-04-04 09:24] LABS: Albumin Globulin Ratio 1.3 (0.9-2); Albumin Level 3.9 gm/dl (3.4-5.0); BUN Creatinine Ratio 16.5 (10-20); Calcium 8.8 mg/dl (8.6-10.3); Creatinine Clr Calc Pharmacy 78.7 ml/min; Est GFR (African American) 98.1 ml/min; Est GFR (Non-African American) 84.6 ml/min; Globulin 3.1 gm/dl (2.5-4.0); Potassium 4.2 mmol/L (3.5-5.1)
[2023-04-04 09:28] LABS: Troponin I High Sensitivity 7.2 pg/ml (0-20)
[2023-04-04 09:49] LABS: Adenovirus PCR Not Detected (NotDetected); Bordetella parapertussis PCR Not Detected (NotDetected); Bordetella pertussis PCR Not Detected (NotDetected); Chlamydia pneumoniae PCR Not Detected (NotDetected); Coronavirus 229E PCR Not Detected (NotDetected); Coronavirus CoV-2 (COVID19)PCR Not Detected (NotDetected); Coronavirus HKU1 PCR Not Detected (NotDetected); Coronavirus NL63 PCR Not Detected (NotDetected); Coronavirus OC43PCR Not Detected (NotDetected); Human Metapneumovirus PCR Not Detected (NotDetected); Influenza A PCR Not Detected (NotDetected); Influenza B PCR Not Detected (NotDetected); Mycoplasma pneumoniae PCR Not Detected (NotDetected); Parainfluenza Virus 1 PCR Not Detected (NotDetected); Parainfluenza Virus 2 PCR Not Detected (NotDetected); Parainfluenza Virus 3 PCR Not Detected (NotDetected); Parainfluenza Virus 4 PCR Not Detected (NotDetected); Respiratory Syncytial VirusPCR Not Detected (NotDetected); Rhinovirus/Enterovirus PCR Not Detected (NotDetected)
[2023-04-04] MEDS ORDERED: methylPREDNISolone 125 MG/2 ML VIAL IV STA (09:52)
[2023-04-04] MEDS: ALBUT/IPRATROP 3MG/0.5MG NEB 3 ML VIAL NEB STA (10:11)
[2023-04-04 11:00] LABS: Base Excess VBG 4.5 mEq/L; HCO3 VBG 28 mmol/L; Oxygen Saturation VBG 97.8 %; PCO2 VBG 39 mmHg (38-50); PO2 VBG 90 mmHg; pH VBG 7.47 (7.36-7.41)
--- NOTE | 2023-04-04 11:09 | History & Physical Report ---
Date of Service April 04, 2023 Assessment & Plan (1) COPD exacerbation: Plan: 78 y/o male with a history of CAD with prior SC and stent placement, COPD, sleep apnea on O2 at night, dyslipidemia, GERD, and other history as outlined below who presents to the ED with worsening respiratory symptoms despite course of prednisone as an outpatient. In the ED, pt was noted to be hypoxic after methylprednisolone and DuoNeb. Given a second DuoNeb but pulseox on room air dropped to 86% so pt was referred for admission. Clinical picture seems most consistent with COPD exacerbation but due to surgery last month and prior hx of DVT/PE, will need to evaluate for possible PE as cause of hypoxia. - Admit to PCU - Wean oxygen as able - Check D-dimer. If normal, then defer additional imaging but if elevated, will order CT chest to r/o PE - Antibiotics empirically for COPD exacerbation - Scheduled and prn nebs - Add loratadine for congestion, Mucinex, anti-tussives (2) Hypoxia: (3) Hx of pulmonary embolus: (4) CAD (coronary artery disease): (5) Sleep apnea: (6) Dyslipidemia: Plan Continue other home medications as appropriate Pt seen and reviewed with collaborating physician, Dr. Deras. Plan of care discussed and as outlined above. Code Status: Full code DVT Prophylaxis: Silva Martinez PA-C History of Present Illness Chief Complaint: worsening Primary Care Provider: Delmar Alberto MD 78 y/o male with a history of CAD with prior SC and stent placement, COPD, sleep apnea on O2 at night, dyslipidemia, GERD, and other history as outlined below who presents to the ED with worsening respiratory symptoms. He reports that he started over a week ago with respiratory symptoms. Seen at urgent care on 03/27 and given 5 days of prednisone 40 mg daily. Seemed to be improving (four days ago) but worsened again on Tuesday (three days ago) and has continued to feel poorly over the weekend. He describes head and chest congestion, cough, extreme fatigue, shakiness. Cough mostly non-productive but able to cough up mucus occasional. Only sore throat related to coughing. No fever, KNOX, nausea. More SOB than usual from COPD. No abd pain, no diarrhea. Appetite is decreased. No issues with urination. Of note, pt was admitted a month ago with acute cholecystitis for which underwent cholecystectomy. Procedure was converted to open b/c of mesh from prior abdominal surgery. He has a history of post-operative DVT so he was discharged on two weeks of Eliquis 2.5 mg BID, which he reports taking as directed. He was also on another week of antibiotics, which he completed. He has a history of sleep apea for which he uses O2 at night but not during the day. Allergies Allergy/AdvReac Type Severity Reaction Status Date / Time Sulfa (Sulfonamide Allergy Unknown TOLD A Verified 04/04/23 12:10 Antibiotics) CHILD TO NOT USE Home Medications Medication Instructions Recorded Confirmed Type aspirin 81 mg tablet,delayed 81 mg PO QAM 07/19/19 04/04/23 History release atorvastatin 80 mg tablet (Lipitor) 80 mg PO QAM 07/19/19 04/04/23 History omeprazole 20 mg capsule,delayed 20 mg PO QAM 07/19/19 04/04/23 History release albuterol sulfate 90 mcg/actuation 2 puffs inhalation Q6 PRN 08/27/19 04/04/23 Rx aerosol inhaler Shortness Of Breath Or Wheezing #18 grams [id number]-lm-lxudp 300 mcg-K 60 1 tab PO QAM 08/29/19 04/04/23 History mcg-lycop 600 mcg-lutein 300 mcg tablet (Centrum Silver Ultra Men's) ipratropium bromide 21 mcg (0.03 2 spray intranasal DAILY 12/22/21 04/04/23 History %) nasal spray metoprolol succinate 25 mg 25 mg PO QAM 12/22/21 04/04/23 History tablet,extended release 24 hr fluticasone fur. 100 mcg-umeclid 1 inh inhalation DAILY 02/26/23 04/04/23 History 62.5 mcg-vilant 25 mcg inhalat.powder (Trelegy Ellipta) olmesartan 20 mg tablet 20 mg PO DAILY 02/26/23 04/04/23 History Past Med/Surg History Medical History (Updated 04/04/23 @ 11:29 by Tawana Martinez PA-C) Arthritis CAD S/P percutaneous coronary angioplasty with stent placement>2003 Cecal volvulus HX COPD (chronic obstructive pulmonary disease) Dyslipidemia GERD (gastroesophageal reflux disease) Hemorrhoids, internal with ligation in 06/2010 Myocardial Infarction 2003 On home oxygen therapy WEARS 2L HS FOR SLEEP APNEA Sleep apnea WEARS 2L AT HS, unable to tolerate CPAP Thoracic aortic aneurysm BEING MONITORED Surgical History (Updated 03/02/23 @ 09:39 by ABDULAZIZ Ugarte) H/O abdominal surgery "ABDOMINAL RECONSTRUCTION/MESH INSERTED" 2020 AT [facility] H/O hernia repair One surgery age 18 (right side), then another hernia repair to fix this area in 1997. History of colonoscopy History of exploratory laparotomy 07/20/2019-ileocecectomy, stapled side to side ileocolostomy, post op ileus. 08/03/2019-back to OR for ex lap, lysis of adhesions, and decompressive enterotomy. History of heart artery stent 1 SENT PLACED 2003 ([facility]) >FOLLOWS WITH DR. WARREN History of tooth extraction S/P cholecystectomy (02/27/23) Laparoscopic converted to Open Cholecystectomy with Cholangiogram(Not Applicable) - Jhon Platt MD, FACS S/P partial colectomy 07/20/2019, with anastomosis S/P right cataract extraction Family History Other Melanoma No family history of adverse response to anesthesia Social History Smoking Status: Former smoker Tobacco Type: Cigarettes Second Hand Exposure: Yes (as a child); Do You Dip or Chew Tobacco: No; Hx Alcohol Use: Yes Alcohol type: wine Hx Substance Use: No Preferred Language: Welsh Communication Ability: Effective Visual Impairment: No Limitations Director Ehs Required: No Beliefs That Will Affect Care: None marital status: Current Living Situation: Spouse Feels Safe at Home: Yes Safety Concerns: Feels Safe At This Time Assistive Devices: Glasses Review of Systems Review of Systems: All systems reviewed & are unremarkable except as noted in HPI & below Constitutional: + fatigue and + anorexia; no fever Ear, Nose, Mouth, Throat: + nasal congestion, + nasal discharge and + sore throat Respiratory: + cough and + dyspnea Cardiovascular: no chest pain and no palpitations Gastrointestinal: no abdominal pain, no nausea, no vomiting and no diarrhea/loose stools Genitourinary: no dysuria or no hematuria Neurologic: + generalized weakness; no dizziness, no headache(s) and no confusion Physical Exam Physical Exam: See physician note for details of the physical exam Results & Data Results & Data Vital Signs (Past 12 Hours) Vital Signs Temp Pulse Pulse Resp BP BP Pulse Ox 04/04/23 10:25 107 H 20 86 L 04/04/23 10:35 103 H 20 128/76 91 04/04/23 08:58 94 H 20 122/76 97 04/04/23 08:52 100 H 04/04/23 08:10 36.6 C 101 H 18 127/79 90 O2 Del Method O2 Flow Rate 04/04/23 10:25 Room Air 04/04/23 10:35 Nasal Cannula 2 04/04/23 08:58 Room Air 04/04/23 08:52 04/04/23 08:10 Laboratory Results Laboratory Results - last 24 hr 04/04/23 04/04/23 04/04/23 08:42 08:42 08:42 WBC 10.18 RBC 4.89 Hgb 15.4 Hct 44.9 MCV 91.8 MCH 31.5 MCHC 34.3 RDW Std Deviation 47.1 H RDW Coeff of Beata 14.0 Plt Count 204 MPV 10.1 Immature Gran % (Auto) 0.4 Neut % (Auto) 61.0 Lymph % (Auto) 22.6 [place] % (Auto) 14.6 Eos % (Auto) 0.9 Baso % (Auto) 0.5 Neut # (Auto) 6.21 Lymph # (Auto) 2.30 [place] # (Auto) 1.49 H Eos # (Auto) 0.09 Baso # (Auto) 0.05 Immature Gran # (Auto) 0.04 VBG pH VBG pCO2 VBG pO2 VBG HCO3 VBG O2 Saturation VBG Base Excess Sodium 134 L Potassium 4.2 Chloride 99 Carbon Dioxide 28 Anion Gap 7 BUN 14 Creatinine 0.85 Est Cr Clr Drug Dosing 78.7 Est GFR ( Amer) 98.1 Est GFR (Non-Af Amer) 84.6 BUN/Creatinine Ratio 16.5 Glucose 108 H Calcium 8.8 Total Bilirubin 1.0 AST 17 ALT 14 Alkaline Phosphatase 60 Troponin I High Sens 7.2 Total Protein 7.0 Albumin 3.9 Globulin 3.1 Albumin/Globulin Ratio 1.3 Lipase 26 Procalcitonin < 0.05 Adenovirus (PCR) B. pertussis DNA (PCR) B.parapertussis DNA PCR C. pneumoniae DNA (PCR) Coronavirus OC43 (PCR) Coronavirus HKU1 (PCR) Coronavirus 229E (PCR) SARS-CoV-2 (PCR) Coronavirus NL63 (PCR) Human Metapneumovir PCR Influenza Type A (PCR) Influenza Type B (PCR) M. pneumoniae (PCR) Parainfluenza 1 (PCR) Parainfluenza 2 (PCR) Parainfluenza 3 (PCR) Parainfluenza 4 (PCR) RSV (PCR) Entero/Rhino (PCR) 04/04/23 04/04/23 08:42 10:50 WBC RBC Hgb Hct MCV MCH MCHC RDW Std Deviation RDW Coeff of Beata Plt Count MPV Immature Gran % (Auto) Neut % (Auto) Lymph % (Auto) [place] % (Auto) Eos % (Auto) Baso % (Auto) Neut # (Auto) Lymph # (Auto) [place] # (Auto) Eos # (Auto) Baso # (Auto) Immature Gran # (Auto) VBG pH 7.47 H VBG pCO2 39 VBG pO2 90 VBG HCO3 28 VBG O2 Saturation 97.8 VBG Base Excess 4.5 Sodium Potassium Chloride Carbon Dioxide Anion Gap BUN Creatinine Est Cr Clr Drug Dosing Est GFR ( Amer) Est GFR (Non-Af Amer) BUN/Creatinine Ratio Glucose Calcium Total Bilirubin AST ALT Alkaline Phosphatase Troponin I High Sens Total Protein Albumin Globulin Albumin/Globulin Ratio Lipase Procalcitonin Adenovirus (PCR) Not Detected B. pertussis DNA (PCR) Not Detected B.parapertussis DNA PCR Not Detected C. pneumoniae DNA (PCR) Not Detected Coronavirus OC43 (PCR) Not Detected Coronavirus HKU1 (PCR) Not Detected Coronavirus 229E (PCR) Not Detected SARS-CoV-2 (PCR) Not Detected Coronavirus NL63 (PCR) Not Detected Human Metapneumovir PCR Not Detected Influenza Type A (PCR) Not Detected Influenza Type B (PCR) Not Detected M. pneumoniae (PCR) Not Detected Parainfluenza 1 (PCR) Not Detected Parainfluenza 2 (PCR) Not Detected Parainfluenza 3 (PCR) Not Detected Parainfluenza 4 (PCR) Not Detected RSV (PCR) Not Detected Entero/Rhino (PCR) Not Detected Diagnostic Findings Chest X-Ray 04/04/23 08:25 XR chest 1V portable HISTORY: Chest pain, nonspecific COMPARISON: Chest 03/02/2023. FINDINGS: Emphysema. No pneumothorax. No pleural effusions. Increased markings at the lung bases is likely due to vascular crowding from the emphysema. However, there is progressive interstitial thickening within the right lower lung zone.. No evidence for pulmonary edema. The heart is normal in size. No acute fractures. IMPRESSION: 1. Emphysema. 2. Progressive interstitial thickening within the right lower lung zone. This could be due to vascular crowding from the advanced emphysema. A low-grade pneumonitis would be difficult to exclude. ACT 112: Negative or not required by law. Electronically signed by: Tevin Silva M.D. 04/04/2023 8:45 AM Medications Administered Discontinued Medications Albuterol (Albut/Ipratrop 3mg/0.5mg Neb 3 Ml Vial) 3 ml NEB NOW STA; Protocol Stop: 04/04/23 08:40 Last Admin: 04/04/23 08:49 Dose: 3 ml Documented By: DIA Albuterol (Albut/Ipratrop 3mg/0.5mg Neb 3 Ml Vial) 3 ml NEB NOW STA; Protocol Stop: 04/04/23 10:06 Last Admin: 04/04/23 10:11 Dose: 3 ml Documented By: Admin: 04/04/23 10:11 Dose: 3 ml Documented By: DIA Methylprednisolone (Methylprednisolone 125 Mg/2 Ml Vial) 125 mg IV NOW STA Stop: 04/04/23 09:53 Last Admin: 04/04/23 10:12 Dose: 125 mg Documented By: DIA Supervising Physician Co-Signing Physician Notes 78 y/o male with a history of CAD with prior SC and stent placement, COPD, sleep apnea on O2 at night, dyslipidemia, GERD who presentes with worsening cough, shortness of breath over the past week. Associated with congestion and extreme fatigue Denied any abd pain, diarrhea, nausea, vomiting, fever or chills On exam, General: Ill looking man, in no distress Eyes: PERRL, conjunctivae normal, not pale, anicteric sclerae, EOM intact bilaterally ENMT: External ear and nose normal, oropharynx normal Respiratory: Not in respiratory distress, on nasal cannula 2l/min with ox sats at 91%, +rhonchi. No crackles Cardiovascular: Tachycardic, regular rhythm, S1 S2 Gastrointestinal (Abdomen): Abdomen is not distended, soft, mild tenderness around recent surgical site , no guarding, no palpable hepatosplenomegaly, normal bowel sounds Musculoskeletal: No pedal edema Genitourinary: No CVA tenderness Neurologic: Alert and oriented x 3, No focal weakness, sensation grossly intact Psychiatric: Euthymic affect Acute respiratory failure with hypoxia COPD exacerbation CXR showed emphysema, interstitial thickening of RLL zone Procal is <0.05, no leukocytosis Continue steroid, nebs Loratadine Antitussive Get DDimer. If elevated, get CT PE
[2023-04-04] MEDS ORDERED: LORATADINE 10 MG TAB PO ONE (11:44)
[2023-04-04] MEDS ORDERED: guaiFENesin 600 MG TABCR PO ONE (11:44)
[2023-04-04 11:58] LABS: D Dimer 990 ug/L FEU (0-500)
[2023-04-04] MEDS ORDERED: ACETAMINOPHEN 325 MG TAB PO PRN (12:28)
[2023-04-04] MEDS ORDERED: BENZONATATE 100 MG CAPSULE PO PRN (12:28)
--- NOTE | 2023-04-04 13:20 | Electrocardiogram Report ---
Test Reason : Blood Pressure : / mmHG Vent. Rate : 097 BPM Atrial Rate : 097 BPM P-R Int : 130 ms QRS Dur : 134 ms QT Int : 378 ms P-R-T Axes : 051 041 054 degrees QTc Int : 480 ms Normal sinus rhythm Right bundle branch block Abnormal ECG When compared with ECG of 26-FEB-2023 08:17, No significant change was found Confirmed by Silvestre Land ([id number]) on 04/04/2023 1:19:59 PM Referred By: Confirmed By:Ja Land
[2023-04-04] MEDS ORDERED: INFLUENZA VACCINE HIGH-DOSE (HD-IIV4) PF 65+ 0.7mL SYR IM ONE (13:23)
[2023-04-04] MEDS ORDERED: OPTIRAY 320 500ml IV ONE (13:24)
--- NOTE | 2023-04-04 13:44 | CT Scan Report ---
CT ANGIOGRAM OF THE CHEST CLINICAL HISTORY: Atypical chest pain. Hypoxia. COMPARISON STUDY: Chest x-ray dated 04/04/2023. Chest CT dated 08/18/2019. TECHNIQUE: Following the IV administration of 100 cc of Optiray 320, CT angiogram of the chest was pe rformed from the upper abdomen to the thoracic inlet utilizing the pulmonary embolus protocol. Images are reviewed in the axial, sagittal, and coronal planes. 3-D MIPS images are created and assessed. I V contrast was administered without complication. A dose lowering technique was utilized adhering to the principles of ALARA. CT DOSE: 750.18 mGy.cm FINDINGS: Thyroid: Imaged portions of the thyroid gland are normal in size and attenuation. Thoracic aorta: There is mild atherosclerotic calcification of the thoracic aorta. There is mild aneu rysmal dilatation of the ascending thoracic aorta which measures up to 4.2 cm in diameter. The remain kristyn of the thoracic aorta is normal in caliber, and the arch demonstrates standard 3-vessel anatomy. No dissection is seen. Pulmonary vasculature: The pulmonary trunk is normal in caliber. There are no filling defects identif ied in main, lobar, or segmental pulmonary branches to suggest pulmonary embolus. Heart: The heart is normal in size and without pericardial effusion. The coronary arteries are densel y calcified. Lungs and pleural spaces: There is advanced emphysema. The trachea and central airways are clear. Foc i of parenchymal scarring are seen throughout both lungs. Airspace consolidation is noted at the righ t lung base. There is trace right pleural effusion. Mild patchy airspace opacities are also seen in t he right middle lobe. Linear scarlike opacities in the right upper lobe on image #202 measure up to 2 .0 cm. A 1.0 cm spiculated nodule is seen in the left lower lobe on image #144. This is new from 08/17. There is diffuse bronchial wall thickening with mucous plugging/secretions in the lower lobe a irways. Mediastinum: There is no mediastinal lymphadenopathy. Elisabet: Clear. Axillae: There is no axillary lymphadenopathy. Upper abdomen: Cholecystectomy clips are noted. There is a small hiatal hernia. Partially visualized upper abdominal viscera is otherwise grossly unremarkable. Skeletal structures: The skeletal structures are osteopenic. No lytic or blastic bony lesions are see n. IMPRESSION: 1. There is no evidence of pulmonary embolus in the main, lobar, or segmental pulmonary arteries. 2. There is a 10 mm spiculated nodule in the left lower lobe. This is pathologically indeterminant, a nd although this could potentially be inflammatory the appearance is highly suspicious for a pulmonar y neoplasm. Outpatient follow-up with pulmonology is recommended, as is a follow-up chest CT in 1 to 2 months time for reevaluation. 3. Right basilar consolidation and trace right pleural effusion. This likely represents pneumonia/asp iration pneumonitis. Clinical correlation will be required. Follow-up to resolution is recommended. 4. Irregular linear scarlike opacities in the right upper lobe were also not seen in 2019. This shoul d also be reassessed at follow-up. 5. There is mild aneurysmal dilatation of the ascending thoracic aorta which measures up to 4.2 cm. 6. Advanced coronary artery atherosclerosis. 7. Additional findings as above. ACT 112: Positive. There are findings on this exam that require communication between the performing entity and the patient following Patient Test Result Information Act ([place] Act 112) guidelines. Electronically signed by: Jad Monson M.D. 04/04/2023 1:41 PM
[2023-04-04] MEDS: ALBUT/IPRATROP 3MG/0.5MG NEB 3 ML VIAL NEB SCH ×2 (15:00→19:36)
[2023-04-04] MEDS: cefTRIAXone SODIUM 2,000 MG in DEXTROSE 5 % MINI-B 50 ML IV SCH (15:26)
[2023-04-04] MEDS: DOXYCYCLINE HYCLATE 100 MG in DEXTROSE 5% MINI-B 100 ML IV SCH (15:56)
--- NOTE | 2023-04-04 16:18 | Pulmonary Consultation ---
Date of Consultation April 04, 2023 Assessment & Plan (1) Aspiration pneumonia: Agree with empiric antibiotics with a total course of antibiotics of 7 days. Obtain sputum cultures. Consider speech therapy evaluation. Flutter valve and incentive spirometer ordered. Humidified oxygen ordered. Maintain sats above 88%. Avoid hyperoxia. (2) COPD exacerbation: Agree with prednisone therapy for 5 to 7 days. Continue ICS/LABA/LAMA inhalers. Continue DuoNebs. (3) Left lower lobe pulmonary nodule: Highly suspicious spiculated left lower lobe nodule. Difficult to interpret in the setting of acute infection, but malignancy remains the diagnosis of exclus ion. 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 Plan Plan of care discussed with patient and at bedside. All in agreement with treatment plan. History of Present Illness Reason for Consultation: COPD exacerbation Attending Physician: Bernice Deras MD History of Present Illness 78-year-old male with a history of pulmonary embolism, COPD, MICHEL and CAD who presented to the hospital today due to increasing shortness of breath and cough. He normally follows with outpatient pulmonology in [facility]. He was actually seen by me as an inpatient in August 2019 for an acute pulmonary embolism. Over the last 10 days patient has been having increasing fatigue and cough productive of sputum. No overt fevers. He was admitted to the hospitalist service and started on Rocephin, doxycycline, prednisone 40 mg and DuoNebs. He does note that his breathing is improved since admission last night. He remains short of breath with cough with mild exertion. Denies any significant weight loss. Chest CTA completed today was personally reviewed and reveals no significant pulmonary emboli. 1 centimeter spiculated nodule in the left lower lobe noted. There is also evidence of right basilar consolidation and trace effusion likely indicative of aspiration pneumonia. Severe and diffuse centrilobular emphysema noted. I reviewed the radiology interpretation and agree with the interpretation. Allergies Allergy/AdvReac Type Severity Reaction Status Date / Time Sulfa (Sulfonamide Allergy Unknown TOLD A Verified 04/04/23 12:10 Antibiotics) CHILD TO NOT USE Home Medications Medication Instructions Recorded Confirmed Type aspirin 81 mg tablet,delayed 81 mg PO QAM 07/19/19 04/04/23 History release atorvastatin 80 mg tablet (Lipitor) 80 mg PO QAM 07/19/19 04/04/23 History omeprazole 20 mg capsule,delayed 20 mg PO QAM 07/19/19 04/04/23 History release albuterol sulfate 90 mcg/actuation 2 puffs inhalation Q6 PRN 08/27/19 04/04/23 Rx aerosol inhaler Shortness Of Breath Or Wheezing #18 grams vtxnxnya-mg-pxgmr 300 mcg-K 60 1 tab PO QAM 08/29/19 04/04/23 History mcg-lycop 600 mcg-lutein 300 mcg tablet (Centrum Silver Ultra Men's) ipratropium bromide 21 mcg (0.03 2 spray intranasal DAILY 12/22/21 04/04/23 History %) nasal spray metoprolol succinate 25 mg 25 mg PO QAM 12/22/21 04/04/23 History tablet,extended release 24 hr fluticasone fur. 100 mcg-umeclid 1 inh inhalation DAILY 02/26/23 04/04/23 History 62.5 mcg-vilant 25 mcg inhalat.powder (Trelegy Ellipta) olmesartan 20 mg tablet 20 mg PO DAILY 02/26/23 04/04/23 History Patient History Medical History (Updated 04/04/23 @ 18:00 by Srikanth Armenta MD) Arthritis Aspiration pneumonia CAD S/P percutaneous coronary angioplasty with stent placement>2003 Cecal volvulus HX COPD (chronic obstructive pulmonary disease) Dyslipidemia GERD (gastroesophageal reflux disease) Hemorrhoids, internal with ligation in 06/2010 Left lower lobe pulmonary nodule Myocardial Infarction 2003 On home oxygen therapy WEARS 2L HS FOR SLEEP APNEA Sleep apnea WEARS 2L AT HS, unable to tolerate CPAP Thoracic aortic aneurysm BEING MONITORED Surgical History (Updated 03/02/23 @ 09:39 by ABDULAZIZ Ugarte) H/O abdominal surgery "ABDOMINAL RECONSTRUCTION/MESH INSERTED" 2020 AT [place] H/O hernia repair One surgery age 18 (right side), then another hernia repair to fix this area in 1997. History of colonoscopy History of exploratory laparotomy 07/20/2019-ileocecectomy, stapled side to side ileocolostomy, post op ileus. 08/03/2019-back to OR for ex lap, lysis of adhesions, and decompressive enterotomy. History of heart artery stent 1 SENT PLACED 2003 ([facility]) >FOLLOWS WITH DR. WARREN History of tooth extraction S/P cholecystectomy (02/27/23) Laparoscopic converted to Open Cholecystectomy with Cholangiogram(Not Applicable) - Jhon Platt MD, FACS S/P partial colectomy 07/20/2019, with anastomosis S/P right cataract extraction Family History Other Melanoma No family history of adverse response to anesthesia Social History Smoking Status: Former smoker Tobacco Type: Cigarettes Second Hand Exposure: Yes (as a child); Do You Dip or Chew Tobacco: No; Hx Alcohol Use: Yes Alcohol type: wine Hx Substance Use: No Preferred Language: Danish Communication Ability: Effective Visual Impairment: No Limitations Rn Lactation Consultant Required: No Beliefs That Will Affect Care: None marital status: Current Living Situation: Spouse Feels Safe at Home: Yes Safety Concerns: Feels Safe At This Time Assistive Devices: Glasses Review of Systems Review of Systems: All systems reviewed & are unremarkable except as noted in HPI & below Physical Exam Physical Exam: Constitutional: Patient appears to be of their stated age. Patient is in no apparent distress. Patient is well-developed. Eyes: Pupils are equal round and reactive to light. Conjunctivae are normal. Anicteric sclera. Ears nose, mouth and throat: Deferred. Neck: Trachea is midline. Visual inspection is normal. Respiratory: Diffuse expiratory wheeze. Mildly increased respiratory rate. No increased work of breathing. Cardiovascular: Regular rate and rhythm. No murmurs. No edema. Gastrointestinal: Normal bowel sounds, soft, nontender and nondistended. No hepatosplenomegaly noted. Musculoskeletal: No cyanosis. Patient is able to move all extremities. Strength is 5 out of 5 in the upper and lower extremities. Skin: No rashes, warm dry and intact. Neurologic: No obvious focal neurological deficits seen. Psychiatric: Alert and oriented x3 with a euthymic affect. Results & Data Results & Data Vital Signs (Past 12 Hours) Vital Signs Temp Pulse Pulse Resp BP BP BP 04/04/23 15:48 36.4 C L 88 14 109/68 04/04/23 15:26 87 20 04/04/23 12:17 37.1 C 95 H 17 99/60 L 04/04/23 10:25 107 H 20 04/04/23 10:35 103 H 20 128/76 04/04/23 08:58 94 H 20 122/76 04/04/23 08:52 100 H 04/04/23 08:10 36.6 C 101 H 18 127/79 Pulse Ox O2 Del Method O2 Flow Rate 04/04/23 15:48 93 Nasal Cannula 04/04/23 15:26 88 L Nasal Cannula 2 04/04/23 12:17 95 Room Air 04/04/23 10:25 86 L Room Air 04/04/23 10:35 91 Nasal Cannula 2 04/04/23 08:58 97 Room Air 04/04/23 08:52 04/04/23 08:10 90 PG Care Time/CCT Total # of Minutes Spent Total Time Spent with Patient: Total time spent is greater than 50% in coordination of care (as documented) at patient's floor/unit and/or counseling patient: Coding Level of Care Code 07751 INT INP/OBS CARE 3/75MIN Diagnoses Aspiration pneumonia J69.0 COPD exacerbation J44.1 Left lower lobe pulmonary nodule R91.1
[2023-04-04] MEDS: guaiFENesin 600 MG TABCR PO SCH (20:50)
[2023-04-05] MEDS: DOXYCYCLINE HYCLATE 100 MG in DEXTROSE 5% MINI-B 100 ML IV SCH ×2 (02:16→15:01)
[2023-04-05] MEDS: MELATONIN 3 MG TAB PO PRN (02:16)
[2023-04-05] MEDS: ALBUT/IPRATROP 3MG/0.5MG NEB 3 ML VIAL NEB SCH ×3 (07:09→19:22)
[2023-04-05] MEDS: FLUTICASONE/VILANTEROL 100/25MCG 14 PUFFS/INHALER INH SCH (08:05)
[2023-04-05] MEDS: METOPROLOL SUCC 25MG EXT REL TAB PO SCH (08:06)
[2023-04-05] MEDS: PANTOprazole 40 MG TAB PO SCH (08:06)
[2023-04-05] MEDS: LOSARTAN POTASSIUM 50 MG TAB PO SCH (08:06)
[2023-04-05] MEDS: ASPIRIN 81 MG ECTAB PO SCH (08:07)
[2023-04-05] MEDS: ATORVASTATIN 40 MG TAB PO SCH (08:07)
[2023-04-05] MEDS: ENOXAPARIN INJ 40 MG/0.4 ML SYR SQ SCH (08:55)
[2023-04-05] MEDS: guaiFENesin 600 MG TABCR PO SCH ×2 (08:55→20:09)
[2023-04-05] MEDS: predniSONE 20 MG TAB PO SCH (08:55)
[2023-04-05] MEDS: LORATADINE 10 MG TAB PO SCH (08:55)
[2023-04-05] MEDS ORDERED: IPRATROPIUM BROMIDE NASAL SPRAY 0.06% 15ML NAE SCH (09:00)
[2023-04-05] MEDS ORDERED: UMECLIDINIUM BROMIDE 62.5MCG/BLISTER 7 PUFFS/INHALER INH SCH (09:00)
[2023-04-05] MEDS ORDERED: NON-FORMULARY MEDICATION (Fluticasone-Umeclidin-Vilanter [Trelegy Ellipta] 100-62.5-25 mcg INH SCH (09:00)
[2023-04-05] MEDS: SODIUM CHLOR 7% 4 ML NEB NEB SCH ×2 (10:36→19:22)
--- NOTE | 2023-04-05 12:45 | Hospitalist Progress Note ---
Date of Service April 05, 2023 Assessment & Plan (1) COPD exacerbation: (2) Hypoxia: (3) Hx of pulmonary embolus: (4) CAD (coronary artery disease): (5) Sleep apnea: (6) Dyslipidemia: Plan 78 y/o male with a history of CAD with prior MN and stent placement, COPD, sleep apnea on O2 at night, dyslipidemia, GERD, and other history as outlined below who presents to the ED with worsening respiratory symptoms despite course of prednisone as an outpatient. In the ED, pt was noted to be hypoxic after methylprednisolone and DuoNeb. Given a second DuoNeb but pulseox on room air dropped to 86% so pt was referred for admission. Clinical picture seems most consistent with COPD exacerbation COPD exacerbation Right lower lobe pneumonia Acute hypoxic respiratory failure Left lower lobe nodule Patient presents with shortness of breath despite course of prednisone as outpatient Chest x-ray personally reviewed; opacity in right lower lung zone. Emphysema present CTA chest personally reviewed no PE. 10 mm nodule present in left lower lobe. Right basilar consolidation. Respiratory viral panel negative Continue DuoNeb every 6 hours Continue on ceftriaxone and doxycycline; plan to treat for 7 days Continue Breo inhaler. Continue on prednisone for total of 5 days Added hypertonic saline nebs and flutter valve for airway clearance Wean oxygen as tolerated to keep saturation around 88 to 92% Follow-up on sputum culture Discussed with patient regarding pulmonary nodule seen in the CT chest. Patient said he will follow-up with his primary care doctor and pulmonology as outpatient and obtain work-up. History of CAD, MIcontinue on aspirin, metoprolol and Lipitor GERDcontinue home PPI DVT prophylaxis with Lovenox Full code Dispofrom home. Will need two-step at discharge. Patient continues to hospitalize due to COPD exacerbation, right lower lobe pneumonia and acute hypoxic respiratory failure . Time spent evaluating patient, direct bedside care, chart review, placing orders, interpretation of diagnostic studies, discussion with consultants, patient, and family members, as well as other required patient management activities is 60 minutes Please note the above document was generated using voice recognition software. It may contain grammatical, syntax or spelling errors. Any formal questions or concerns about the content, text or information contained within the body of this dictation should be directly addressed to the provider for clarification Admission and Anticipated Discharge Date Admission Date: April 04, 2023 Subjective Patient seen and examined at bedside. Reports intermittent cough. Afebrile overnight Saturating well at 1 L of oxygen Review of Systems Review of Systems: All systems reviewed & are unremarkable except as noted in Subjective Physical Exam Physical Exam: Constitutional: Awake, alert orient x3; in mild distress. Respiratory: Decreased breath sound on right lower lung base. Cardiovascular: RRR, no murmur, no edema Vessels: no JVD or carotid bruit Chest: normal inspection of chest Abdomen: normal bowel sounds, soft, nontender, no hepatosplenomegaly Musculoskeletal: no cyanosis or clubbing, extremities motor strength 5/5 Skin: no rashes, warm and dry normal turgor Neurologic: PERRL, EOMI, accommodation nl, no face palsy, no dysarthria CN's II- XI intact bilaterally and moves all extremities Psychiatric: A+Ox3, euthymic affect Results & Data Results & Data Vital Signs (Past 12 Hours) Vital Signs Temp Pulse Pulse Resp BP Pulse Ox O2 Del Method 04/05/23 11:38 36.7 C 97 H 18 103/66 92 Nasal Cannula 04/05/23 11:17 Nasal Cannula 04/05/23 10:37 96 H 18 96 Nasal Cannula 04/05/23 07:47 36.3 C L 76 20 104/71 97 Nebulizer 04/05/23 07:38 77 04/05/23 07:09 87 16 96 Nasal Cannula 04/05/23 02:40 36.5 C 81 18 126/80 94 Nasal Cannula O2 Flow Rate 04/05/23 11:38 1 04/05/23 11:17 2 04/05/23 10:37 1 04/05/23 07:47 04/05/23 07:38 04/05/23 07:09 2 04/05/23 02:40 2 Laboratory Results Laboratory Results WBC 10.18 K/ul (4.8-10.8) 04/04/23 08:42 RBC 4.89 M/uL (4.70-6.10) 04/04/23 08:42 Hgb 15.4 g/dl (14.0-18.0) 04/04/23 08:42 Hct 44.9 % (42.0-52.0) 04/04/23 08:42 MCV 91.8 fL (80.0-100.0) 04/04/23 08:42 MCH 31.5 pg (25.0-34.0) 04/04/23 08:42 MCHC 34.3 g/dL (32.0-36.0) 04/04/23 08:42 RDW Std Deviation 47.1 fL (36.4-46.3) H 04/04/23 08:42 RDW Coeff of Beata 14.0 % (11.5-14.5) 04/04/23 08:42 Plt Count 204 K/uL (130-400) 04/04/23 08:42 MPV 10.1 fL (9.4-12.4) 04/04/23 08:42 Immature Gran % (Auto) 0.4 % 04/04/23 08:42 Neut % (Auto) 61.0 % 04/04/23 08:42 Lymph % (Auto) 22.6 % 04/04/23 08:42 Jerome % (Auto) 14.6 % 04/04/23 08:42 Eos % (Auto) 0.9 % 04/04/23 08:42 Baso % (Auto) 0.5 % 04/04/23 08:42 Neut # (Auto) 6.21 K/uL (1.40-6.50) 04/04/23 08:42 Lymph # (Auto) 2.30 K/uL (1.20-3.40) 04/04/23 08:42 Jerome # (Auto) 1.49 K/uL (0.11-0.59) H 04/04/23 08:42 Eos # (Auto) 0.09 K/uL (0.00-0.50) 04/04/23 08:42 Baso # (Auto) 0.05 K/uL (0.00-0.20) 04/04/23 08:42 Immature Gran # (Auto) 0.04 K/uL (0.01-0.20) 04/04/23 08:42 D-Dimer 990 ug/L FEU (0-500) H* 04/04/23 08:42 VBG pH 7.47 (7.36-7.41) H 04/04/23 10:50 VBG pCO2 39 mmHg (38-50) 04/04/23 10:50 VBG pO2 90 mmHg 04/04/23 10:50 VBG HCO3 28 mmol/L 04/04/23 10:50 VBG O2 Saturation 97.8 % 04/04/23 10:50 VBG Base Excess 4.5 mEq/L 04/04/23 10:50 Sodium 134 mmol/L (136-145) L 04/04/23 08:42 Potassium 4.2 mmol/L (3.5-5.1) 04/04/23 08:42 Chloride 99 mmol/L (98-107) 04/04/23 08:42 Carbon Dioxide 28 mmol/L (21-32) 04/04/23 08:42 Anion Gap 7 (3-11) 04/04/23 08:42 BUN 14 mg/dl (6-23) 04/04/23 08:42 Creatinine 0.85 mg/dl (0.6-1.4) 04/04/23 08:42 Est Cr Clr Drug Dosing 78.7 ml/min 04/04/23 08:42 Est GFR ( Amer) 98.1 ml/min 04/04/23 08:42 Est GFR (Non-Af Amer) 84.6 ml/min 04/04/23 08:42 BUN/Creatinine Ratio 16.5 (10-20) 04/04/23 08:42 Glucose 108 mg/dl (70-99(Fasting)) H 04/04/23 08:42 Calcium 8.8 mg/dl (8.6-10.3) 04/04/23 08:42 Total Bilirubin 1.0 mg/dl (0.2-1.0) 04/04/23 08:42 AST 17 U/L (13-39) 04/04/23 08:42 ALT 14 U/L (7-52) 04/04/23 08:42 Alkaline Phosphatase 60 U/L (34-104) 04/04/23 08:42 Troponin I High Sens 7.2 pg/ml (0-20) 04/04/23 08:42 Total Protein 7.0 gm/dl (6.0-8.3) 04/04/23 08:42 Albumin 3.9 gm/dl (3.4-5.0) 04/04/23 08:42 Globulin 3.1 gm/dl (2.5-4.0) 04/04/23 08:42 Albumin/Globulin Ratio 1.3 (0.9-2) 04/04/23 08:42 Lipase 26 U/L (11-82) 04/04/23 08:42 Procalcitonin < 0.05 ng/ml (0-0.5) 04/04/23 08:42 Adenovirus (PCR) Not Detected (NotDetected) 04/04/23 08:42 B. pertussis DNA (PCR) Not Detected (NotDetected) 04/04/23 08:42 B.parapertussis DNA PCR Not Detected (NotDetected) 04/04/23 08:42 C. pneumoniae DNA (PCR) Not Detected (NotDetected) 04/04/23 08:42 Coronavirus OC43 (PCR) Not Detected (NotDetected) 04/04/23 08:42 Coronavirus HKU1 (PCR) Not Detected (NotDetected) 04/04/23 08:42 Coronavirus 229E (PCR) Not Detected (NotDetected) 04/04/23 08:42 SARS-CoV-2 (PCR) Not Detected (NotDetected) 04/04/23 08:42 Coronavirus NL63 (PCR) Not Detected (NotDetected) 04/04/23 08:42 Human Metapneumovir PCR Not Detected (NotDetected) 04/04/23 08:42 Influenza Type A (PCR) Not Detected (NotDetected) 04/04/23 08:42 Influenza Type B (PCR) Not Detected (NotDetected) 04/04/23 08:42 M. pneumoniae (PCR) Not Detected (NotDetected) 04/04/23 08:42 Parainfluenza 1 (PCR) Not Detected (NotDetected) 04/04/23 08:42 Parainfluenza 2 (PCR) Not Detected (NotDetected) 04/04/23 08:42 Parainfluenza 3 (PCR) Not Detected (NotDetected) 04/04/23 08:42 Parainfluenza 4 (PCR) Not Detected (NotDetected) 04/04/23 08:42 RSV (PCR) Not Detected (NotDetected) 04/04/23 08:42 Entero/Rhino (PCR) Not Detected (NotDetected) 04/04/23 08:42 Impressions Chest X-Ray 04/04/23 08:25 XR chest 1V portable HISTORY: Chest pain, nonspecific COMPARISON: Chest 03/02/2023. FINDINGS: Emphysema. No pneumothorax. No pleural effusions. Increased markings at the lung bases is likely due to vascular crowding from the emphysema. However, there is progressive interstitial thickening within the right lower lung zone.. No evidence for pulmonary edema. The heart is normal in size. No acute fractures. IMPRESSION: 1. Emphysema. 2. Progressive interstitial thickening within the right lower lung zone. This could be due to vascular crowding from the advanced emphysema. A low-grade pneumonitis would be difficult to exclude. ACT 112: Negative or not required by law. Electronically signed by: Tevin Silva M.D. 04/04/2023 8:45 AM Chest CTA 04/04/23 12:17 CT ANGIOGRAM OF THE CHEST CLINICAL HISTORY: Atypical chest pain. Hypoxia. COMPARISON STUDY: Chest x-ray dated 04/04/2023. Chest CT dated 08/18/2019. TECHNIQUE: Following the IV administration of 100 cc of Optiray 320, CT angiogram of the chest was performed from the upper abdomen to the thoracic inlet utilizing the pulmonary embolus protocol. Images are reviewed in the axial, sagittal, and coronal planes. 3-D MIPS images are created and assessed. IV contrast was administered without complication. A dose lowering technique was utilized adhering to the principles of ALARA. CT DOSE: 750.18 mGy.cm FINDINGS: Thyroid: Imaged portions of the thyroid gland are normal in size and attenuation. Thoracic aorta: There is mild atherosclerotic calcification of the thoracic aorta. There is mild aneurysmal dilatation of the ascending thoracic aorta which measures up to 4.2 cm in diameter. The remainder of the thoracic aorta is normal in caliber, and the arch demonstrates standard 3-vessel anatomy. No dissection is seen. Pulmonary vasculature: The pulmonary trunk is normal in caliber. There are no filling defects identified in main, lobar, or segmental pulmonary branches to suggest pulmonary embolus. Heart: The heart is normal in size and without pericardial effusion. The coronary arteries are densely calcified. Lungs and pleural spaces: There is advanced emphysema. The trachea and central airways are clear. Foci of parenchymal scarring are seen throughout both lungs. Airspace consolidation is noted at the right lung base. There is trace right pleural effusion. Mild patchy airspace opacities are also seen in the right middle lobe. Linear scarlike opacities in the right upper lobe on image #202 measure up to 2.0 cm. A 1.0 cm spiculated nodule is seen in the left lower lobe on image #144. This is new from 08/18/2019. There is diffuse bronchial wall thickening with mucous plugging/secretions in the lower lobe airways. Mediastinum: There is no mediastinal lymphadenopathy. Elisabet: Clear. Axillae: There is no axillary lymphadenopathy. Upper abdomen: Cholecystectomy clips are noted. There is a small hiatal hernia. Partially visualized upper abdominal viscera is otherwise grossly unremarkable. Skeletal structures: The skeletal structures are osteopenic. No lytic or blastic bony lesions are seen. IMPRESSION: 1. There is no evidence of pulmonary embolus in the main, lobar, or segmental pulmonary arteries. 2. There is a 10 mm spiculated nodule in the left lower lobe. This is pathologically indeterminant, and although this could potentially be inflammatory the appearance is highly suspicious for a pulmonary neoplasm. Outpatient follow-up with pulmonology is recommended, as is a follow-up chest CT in 1 to 2 months time for reevaluation. 3. Right basilar consolidation and trace right pleural effusion. This likely represents pneumonia/aspiration pneumonitis. Clinical correlation will be required. Follow-up to resolution is recommended. 4. Irregular linear scarlike opacities in the right upper lobe were also not seen in 2020. This should also be reassessed at follow-up. 5. There is mild aneurysmal dilatation of the ascending thoracic aorta which measures up to 4.2 cm. 6. Advanced coronary artery atherosclerosis. 7. Additional findings as above. ACT 112: Positive. There are findings on this exam that require communication between the performing entity and the patient following Patient Test Result Information Act ([place] Act 112) guidelines. Electronically signed by: Jad Monson M.D. 04/04/2023 1:41 PM
[2023-04-05] MEDS: cefTRIAXone SODIUM 2,000 MG in DEXTROSE 5 % MINI-B 50 ML IV SCH (14:16)
--- NOTE | 2023-04-05 16:18 | Pulmonology Progress Note ---
Date of Service April 05, 2023 Assessment & Plan (1) Aspiration pneumonia: Plan: Agree with empiric antibiotics with a total course of antibiotics of 7 days. Sputum cultures pending. Consider speech therapy evaluation. Flutter valve and incentive spirometer ordered. Humidified oxygen ordered. Maintain sats above 88%. Avoid hyperoxia. (2) COPD exacerbation: Plan: Agree with prednisone therapy for 5 to 7 days. Continue ICS/LABA/LAMA inhalers. Continue DuoNebs. (3) Left lower lobe pulmonary nodule: Plan: Highly suspicious spiculated left lower lobe nodule. Difficult to interpret in the setting of acute infection, but malignancy remains the diagnosis of exclusion. Will need to follow-up CT in 6 to 8 weeks which can be managed by his outpatient guide through the [facility] system. (4) Essential tremor: Plan: This is likely exacerbated by the patient currently being on systemic corticosteroids and beta agonist therapy for COPD exacerbation. Plan Plan of care discussed with patient and at bedside. All in agreement with treatment plan. Pulmonary to sign off at this time. Thank you for allowing me to participate in the care of the patient. Please call questions. Admission and Anticipated Discharge Date Admission Date: April 04, 2023 Subjective Patient seen and examined. He is feeling much better in terms of less shortness of breath and cough. He denies any productive cough this afternoon. Denies chest pain. No recent fevers, chills or night sweats in the past 24 hours. Appetite is improving. is at bedside. Review of Systems Review of Systems: All systems reviewed & are unremarkable except as noted in HPI & below Physical Exam Physical Exam: Constitutional: Patient appears to be of their stated age. Patient is in no apparent distress. Patient is well-developed. Eyes: Pupils are equal round and reactive to light. Conjunctivae are normal. Anicteric sclera. Ears nose, mouth and throat: Deferred. Neck: Trachea is midline. Visual inspection is normal. Respiratory: Expiratory wheezes minimal at this time. Right lower lobe crackles noted. Cardiovascular: Regular rate and rhythm. No murmurs. No edema. Gastrointestinal: Normal bowel sounds, soft, nontender and nondistended. No hepatosplenomegaly noted. Musculoskeletal: No cyanosis. Patient is able to move all extremities. Strength is 5 out of 5 in the upper and lower extremities. Skin: No rashes, warm dry and intact. Neurologic: No obvious focal neurological deficits seen. Psychiatric: Alert and oriented x3 with a euthymic affect. Results & Data Results & Data Vital Signs (Past 12 Hours) Vital Signs Temp Pulse Pulse Resp BP Pulse Ox O2 Del Method 04/05/23 16:12 82 04/05/23 15:52 36.6 C 87 20 91/56 L 92 Nasal Cannula 04/05/23 11:38 36.7 C 97 H 18 103/66 92 Nasal Cannula 04/05/23 11:17 Nasal Cannula 04/05/23 10:37 96 H 18 96 Nasal Cannula 04/05/23 07:47 36.3 C L 76 20 104/71 97 Nebulizer 04/05/23 07:38 77 04/05/23 07:09 87 16 96 Nasal Cannula O2 Flow Rate 04/05/23 16:12 04/05/23 15:52 1 04/05/23 11:38 1 04/05/23 11:17 2 04/05/23 10:37 1 04/05/23 07:47 04/05/23 07:38 04/05/23 07:09 2 PG Care Time/CCT Total # of Minutes Spent Total Time Spent with Patient: Total time spent is greater than 50% in coordination of care (as documented) at patient's floor/unit and/or counseling patient: Coding Level of Care Code 98243 SUB INP/OBS CARE 2/35MIN Diagnoses Aspiration pneumonia J69.0 COPD exacerbation J44.1 Left lower lobe pulmonary nodule R91.1 Essential tremor G25.0
[2023-04-06] MEDS: ALBUT/IPRATROP 3MG/0.5MG NEB 3 ML VIAL NEB SCH ×4 (01:38→19:45)
[2023-04-06] MEDS: DOXYCYCLINE HYCLATE 100 MG in DEXTROSE 5% MINI-B 100 ML IV SCH ×2 (02:00→14:18)
[2023-04-06 06:21] LABS: Basophils # (auto) 0.02 K/uL (0.00-0.20); Basophils % (auto) 0.2 %; Eosinophils # (auto) 0.05 K/uL (0.00-0.50); Eosinophils % (auto) 0.5 %; Hematocrit (blood only) 39.6 % (42.0-52.0); Hemoglobin 13.9 g/dl (14.0-18.0); Immature Granulocytes # (auto) 0.05 K/uL (0.01-0.20); Immature Granulocytes % (auto) 0.5 %; Lymphocytes # (auto) 2.54 K/uL (1.20-3.40); Lymphocytes % (auto) 24.7 %; Mean Corpuscular Hemoglobin 32.3 pg (25.0-34.0); Mean Corpuscular Hgb Conc 35.1 g/dL (32.0-36.0); Mean Corpuscular Volume 91.9 fL (80.0-100.0); Mean Platelet Volume 10.1 fL (9.4-12.4); Monocytes % (auto) 8.7 %; Neutrophils # (auto) 6.73 K/uL (1.40-6.50); Neutrophils % (auto) 65.4 %; Platelet Count 226 K/uL (130-400); RDW Coefficient of Variation 13.8 % (11.5-14.5); Red Blood Count 4.31 M/uL (4.70-6.10); White Blood Count 10.29 K/ul (4.8-10.8)
[2023-04-06 06:43] LABS: Albumin Globulin Ratio 1.2 (0.9-2); Albumin Level 3.5 gm/dl (3.4-5.0); Bilirubin,Total 0.5 mg/dl (0.2-1.0); Calcium 8.8 mg/dl (8.6-10.3); Creatinine Clr Calc Pharmacy 75.2 ml/min; Est GFR (African American) 96.3 ml/min; Est GFR (Non-African American) 83.1 ml/min; Globulin 2.9 gm/dl (2.5-4.0); Potassium 3.6 mmol/L (3.5-5.1); Total Protein 6.4 gm/dl (6.0-8.3)
[2023-04-06] MEDS: SODIUM CHLOR 7% 4 ML NEB NEB SCH ×2 (07:18→19:45)
[2023-04-06] MEDS: ASPIRIN 81 MG ECTAB PO SCH (08:04)
[2023-04-06] MEDS: ENOXAPARIN INJ 40 MG/0.4 ML SYR SQ SCH (08:04)
[2023-04-06] MEDS: ATORVASTATIN 40 MG TAB PO SCH (08:04)
[2023-04-06] MEDS: PANTOprazole 40 MG TAB PO SCH (08:05)
[2023-04-06] MEDS: FLUTICASONE/VILANTEROL 100/25MCG 14 PUFFS/INHALER INH SCH (08:05)
[2023-04-06] MEDS: guaiFENesin 600 MG TABCR PO SCH ×2 (08:05→21:10)
[2023-04-06] MEDS: LORATADINE 10 MG TAB PO SCH (08:05)
[2023-04-06] MEDS: NYSTATIN SUSP 500,000 U/5 ML UDC PO SCH ×4 (08:06→21:10)
[2023-04-06] MEDS: predniSONE 20 MG TAB PO SCH (08:06)
[2023-04-06] MEDS: METOPROLOL SUCC 25MG EXT REL TAB PO SCH (08:06)
[2023-04-06] MEDS: LOSARTAN POTASSIUM 50 MG TAB PO SCH (08:06)
--- NOTE | 2023-04-06 09:21 | Hospitalist Progress Note ---
Date of Service April 06, 2023 Assessment & Plan (1) COPD exacerbation: (2) Hypoxia: (3) Hx of pulmonary embolus: (4) CAD (coronary artery disease): (5) Sleep apnea: (6) Dyslipidemia: Plan 78 y/o male with a PMHx significant for history of CAD with prior OR and stent placement, COPD, sleep apnea on O2 at night, dyslipidemia, GERD who was admitted with acute hypoxic respiratory failure in the setting of a COPD Exacerbation. COPD exacerbation Right lower lobe pneumonia Acute hypoxic respiratory failure Left lower lobe nodule Patient presents with shortness of breath despite course of prednisone as outpatient In the ED, pt was noted to be hypoxic after methylprednisolone and DuoNeb. Given a second DuoNeb but pulse ox on room air dropped to 86% so pt was referred for admission. Clinical picture seems most consistent with COPD exacerbation Chest x-ray noted an opacity in right lower lung zone. Emphysema present CTA chest noted no PE. 10 mm nodule present in left lower lobe. Right basilar consolidation. Respiratory viral panel negative Continue DuoNeb every 6 hours Continue on ceftriaxone and doxycycline; plan to treat for 7 days (started on 04/04) Continue Breo inhaler. Continue on prednisone for total of 5-7 days (started on 04/05) Continue hypertonic saline nebs and flutter valve for airway clearance Wean oxygen as tolerated to keep saturation around 88 to 92% Follow-up on sputum culture -currently growing gram negative bacilli -Follow to narrow abx for discharge Pulmonary nodule seen on CT chest- pt and aware. Patient said he will follow-up with his primary care doctor and pulmonology as outpatient and obtain work-up. Pulmonology consult-appreciate recs -antibiotics for 7 days total -Sputum culture -Consider speech therapy evaluation- speech consult ordered, no concerns of aspiration, recommending outpt video swallow for possible silent aspiration. -Flutter valve and incentive spirometer -Humidified oxygen -Maintain oxygen saturation above 88%, avoid hyperoxia. -Continue with prednisone therapy for 5 to 7 days -Continue ICS/LABA/LAMA inhalers -Continue DuoNebs. -spiculated left lower lobe nodule highly suspicious, malignancy remains the diagnosis of exclusion. Will need to follow-up CT in 6 to 8 weeks with outpt Pulmonology -started on Nystatin History of CAD, OR continue on aspirin, metoprolol and Lipitor GERD continue home PPI Diet: DVT prophylaxis: Lovenox Full code Dispofrom home. Two step completed- pt not interested in oxygen aside from hs oxygen at home. Admission and Anticipated Discharge Date Admission Date: April 04, 2023 Subjective Pt seen in the AM with at bedside. Anxious to get home. States that he is still having the cough but denies SOB, chest pain. States they were aware of the incidental lung nodule but not the aneurysm noted as well. Denies difficulty with swallowing. Review of Systems Review of Systems: All systems reviewed & are unremarkable except as noted in Subjective Physical Exam Physical Exam: General: Alert, oriented. No acute distress Skin: No noted rashes or bruises Psych: Appropriate mood and affect Neuro: No gross deficits HEENT: NC/AT CV: RRR Resp: Breath sounds decreased bilaterally, no increased effort of breathing. Abdomen:Soft, nontender, nondistended. Extremities: No edema in lower extremities bilaterally. Results & Data Results & Data Vital Signs (Past 12 Hours) Vital Signs Temp Pulse Pulse Resp BP Pulse Ox O2 Del Method 04/06/23 08:15 16 109/68 94 Nasal Cannula 04/06/23 07:48 88 96 Nasal Cannula 04/05/23 22:00 88 04/06/23 03:05 36.6 C 74 18 114/74 92 Nasal Cannula 04/05/23 22:47 36.9 C 80 17 114/69 96 Nasal Cannula O2 Flow Rate 04/06/23 08:15 2 04/06/23 07:48 2 04/05/23 22:00 04/06/23 03:05 2 04/05/23 22:47 2
[2023-04-06] MEDS: cefTRIAXone SODIUM 2,000 MG in DEXTROSE 5 % MINI-B 50 ML IV SCH (13:42)
[2023-04-06] MEDS: MELATONIN 3 MG TAB PO PRN (21:10)
[2023-04-07] MEDS: ALBUT/IPRATROP 3MG/0.5MG NEB 3 ML VIAL NEB SCH ×2 (00:08→07:22)
[2023-04-07] MEDS: DOXYCYCLINE HYCLATE 100 MG CAP PO SCH ×2 (01:56→08:41)
[2023-04-07 06:08] LABS: Basophils # (auto) 0.02 K/uL (0.00-0.20); Basophils % (auto) 0.2 %; Eosinophils # (auto) 0.08 K/uL (0.00-0.50); Eosinophils % (auto) 0.9 %; Hematocrit (blood only) 40.7 % (42.0-52.0); Hemoglobin 13.6 g/dl (14.0-18.0); Immature Granulocytes # (auto) 0.04 K/uL (0.01-0.20); Immature Granulocytes % (auto) 0.5 %; Lymphocytes % (auto) 31.8 %; Mean Corpuscular Hemoglobin 31.5 pg (25.0-34.0); Mean Corpuscular Hgb Conc 33.4 g/dL (32.0-36.0); Mean Corpuscular Volume 94.2 fL (80.0-100.0); Monocytes # (auto) 0.74 K/uL (0.11-0.59); Monocytes % (auto) 8.4 %; Neutrophils # (auto) 5.12 K/uL (1.40-6.50); Neutrophils % (auto) 58.2 %; Platelet Count 238 K/uL (130-400); RDW Coefficient of Variation 13.7 % (11.5-14.5); RDW Standard Deviation 47.3 fL (36.4-46.3); Red Blood Count 4.32 M/uL (4.70-6.10)
[2023-04-07 06:37] LABS: BUN Creatinine Ratio 29.5 (10-20); Calcium 8.8 mg/dl (8.6-10.3); Creatinine Clr Calc Pharmacy 85.8 ml/min; Est GFR (African American) 101.6 ml/min; Est GFR (Non-African American) 87.7 ml/min; Magnesium 1.8 mg/dl (1.7-2.4); Phosphorus 3.7 mg/dl (2.5-4.9); Potassium 3.7 mmol/L (3.5-5.1)
[2023-04-07] MEDS: SODIUM CHLOR 7% 4 ML NEB NEB SCH (07:24)
[2023-04-07] MEDS: METOPROLOL SUCC 25MG EXT REL TAB PO SCH (08:41)
[2023-04-07] MEDS: ATORVASTATIN 40 MG TAB PO SCH (08:41)
[2023-04-07] MEDS: LOSARTAN POTASSIUM 50 MG TAB PO SCH (08:41)
[2023-04-07] MEDS: predniSONE 20 MG TAB PO SCH (08:42)
[2023-04-07] MEDS: LORATADINE 10 MG TAB PO SCH (08:42)
[2023-04-07] MEDS: ASPIRIN 81 MG ECTAB PO SCH (08:42)
[2023-04-07] MEDS: PANTOprazole 40 MG TAB PO SCH (08:42)
[2023-04-07] MEDS: FLUTICASONE/VILANTEROL 100/25MCG 14 PUFFS/INHALER INH SCH (08:43)
[2023-04-07] MEDS: ENOXAPARIN INJ 40 MG/0.4 ML SYR SQ SCH (08:43)
[2023-04-07] MEDS: guaiFENesin 600 MG TABCR PO SCH (08:43)
[2023-04-07] MEDS: NYSTATIN SUSP 500,000 U/5 ML UDC PO SCH (08:44)
--- NOTE | 2023-04-07 10:07 | Discharge Summary ---
Discharge Summary Date of Service April 07, 2023 Notes For Next Care Provider Please ensure completion of medication course listed below Pulmonary nodule seen on CT chest- pt and aware. Follow-up with pulmonology as outpatient. Will need follow-up CT in 6 to 8 weeks. Medication Changes From Visit Levaquin 750mg daily for 5 days Doxycycline 100mg BID for 5 days Prednisone 40mg daily for 5 days Admission HPI Per Admitting Provider 78 y/o male with a history of CAD with prior NH and stent placement, COPD, sleep apnea on O2 at night, dyslipidemia, GERD, and other history as outlined below who presents to the ED with worsening respiratory symptoms. He reports that he started over a week ago with respiratory symptoms. Seen at urgent care on 03/27 and given 5 days of prednisone 40 mg daily. Seemed to be improving (four days ago) but worsened again on Tuesday (three days ago) and has continued to feel poorly over the weekend. He describes head and chest congestion, cough, extreme fatigue, shakiness. Cough mostly non-productive but able to cough up mucus occasional. Only sore throat related to coughing. No fever, KNOX, nausea. More SOB than usual from COPD. No abd pain, no diarrhea. Appetite is decreased. No issues with urination. Of note, pt was admitted a month ago with acute cholecystitis for which underwent cholecystectomy. Procedure was converted to open b/c of mesh from prior abdominal surgery. He has a history of post-operative DVT so he was discharged on two weeks of Eliquis 2.5 mg BID, which he reports taking as directed. He was also on another week of antibiotics, which he completed. He has a history of sleep apea for which he uses O2 at night but not during the day. Admission Exam Per Admitting Provider General: Ill looking man, in no distress Eyes: PERRL, conjunctivae normal, not pale, anicteric sclerae, EOM intact bilaterally ENMT: External ear and nose normal, oropharynx normal Respiratory: Not in respiratory distress, on nasal cannula 2l/min with ox sats at 91%, +rhonchi. No crackles Cardiovascular: Tachycardic, regular rhythm, S1 S2 Gastrointestinal (Abdomen): Abdomen is not distended, soft, mild tenderness around recent surgical site , no guarding, no palpable hepatosplenomegaly, normal bowel sounds Musculoskeletal: No pedal edema Genitourinary:No CVA tenderness Neurologic: Alert and oriented x 3, No focal weakness, sensation grossly intact Psychiatric: Euthymic affect Principal Dx & Hospital Course #1 = Principal Diagnosis (1) COPD exacerbation: (2) Hypoxia: (3) Hx of pulmonary embolus: (4) CAD (coronary artery disease): (5) Sleep apnea: (6) Dyslipidemia: Plan 78 y/o male with a PMHx significant for history of CAD with prior NH and stent placement, COPD, sleep apnea on O2 at night, dyslipidemia, GERD who was admitted with acute hypoxic respiratory failure in the setting of COPD Exacerbation and pneumonia. COPD exacerbation Right lower lobe pneumonia Acute hypoxic respiratory failure Left lower lobe nodule Patient presented with shortness of breath despite course of prednisone as outpatient In the ED, pt was noted to be hypoxic after methylprednisolone and DuoNeb treatment. Given a second DuoNeb but pulse ox on room air dropped to 86% so pt was referred for admission. Chest x-ray noted an opacity in right lower lung zone. Emphysema present CTA chest noted no PE, 10 mm nodule present in left lower lobe. Right basilar consolidation. Respiratory viral panel negative DuoNebs every 6 hours were given, treated with ceftriaxone and doxycycline; plan to treat for 7 days (started on 04/04). Also treated with hypertonic saline nebs and flutter valve for airway clearance Continue Breo inhaler. Continue on prednisone for total of 7 days (started on 04/05) Wean oxygen as tolerated to keep saturation around 88 to 92%, pt had 2 step done and dropped only to 89% with ambulation Has home oxygen for use. Sputum culture grew pseudomonas sensitive to fluoroquinolones. Discharged with 5 additional days of Levaquin treatment for pneumonia treatment, and 5 additional days of doxycycline and prednisone for COPD exacerbation treatment. Pulmonary nodule seen on CT chest- pt and aware. Follow-up with pulmonology as outpatient as well as pcp recommended. Will need follow-up CT in 6 to 8 weeks. Pulmonology consulted while in the hospital and recommendations included the following: -antibiotics for 7 days total -Consider speech therapy evaluation- speech saw the patient and there were no concerns for aspiration but did recommend outpatient video swallow for possible silent aspiration that might be occurring. -Flutter valve and incentive spirometer -Humidified oxygen -Maintain oxygen saturation above 88%, avoid hyperoxia. -Continue with prednisone therapy for 5 to 7 days -Continue ICS/LABA/LAMA inhalers -Continue DuoNebs. -spiculated left lower lobe nodule highly suspicious, malignancy remains the diagnosis of exclusion. Will need follow-up CT in 6 to 8 weeks with outpatient pulmonology. History of CAD, NH continue on aspirin, metoprolol and Lipitor GERD continue home PPI Discharge Exam General: Alert, oriented. No acute distress Skin: No noted rashes or bruises Psych: Appropriate mood and affect Neuro: No gross deficits HEENT: NC/AT CV: RRR Resp: Breath sounds decreased bilaterally, no increased effort of breathing. Abdomen:Soft, nontender, nondistended. Extremities: No edema in lower extremities bilaterally. Updated Medication List Medication Instructions Recorded Confirmed Type aspirin 81 mg tablet,delayed 81 mg PO QAM 07/19/19 04/04/23 History release atorvastatin 80 mg tablet (Lipitor) 80 mg PO QAM 07/19/19 04/04/23 History omeprazole 20 mg capsule,delayed 20 mg PO QAM 07/19/19 04/04/23 History release albuterol sulfate 90 mcg/actuation 2 puffs inhalation Q6 PRN 08/27/19 04/04/23 Rx aerosol inhaler Shortness Of Breath Or Wheezing #18 grams [id number] 300 mcg-K 60 1 tab PO QAM 08/29/19 04/04/23 History mcg-lycop 600 mcg-lutein 300 mcg tablet (Centrum Silver Ultra Men's) ipratropium bromide 21 mcg (0.03 2 spray intranasal DAILY 12/22/21 04/04/23 History %) nasal spray metoprolol succinate 25 mg 25 mg PO QAM 12/22/21 04/04/23 History tablet,extended release 24 hr fluticasone fur. 100 mcg-umeclid 1 inh inhalation DAILY 02/26/23 04/04/23 History 62.5 mcg-vilant 25 mcg inhalat.powder (Trelegy Ellipta) olmesartan 20 mg tablet 20 mg PO DAILY 02/26/23 04/04/23 History doxycycline hyclate 100 mg capsule 100 mg PO BID #10 caps 04/07/23 Rx levofloxacin 750 mg tablet 750 mg PO DAILY #5 tabs 04/07/23 Rx prednisone 20 mg tablet 40 mg (2 x 20 mg) PO DAILY #10 tabs 04/07/23 Rx Hospital Stay Data Consultations 04/04/23 10:59 ED Decision to Admit Stat 04/04/23 13:51 Consult Pulmonology Routine Diagnostic Imagining Performed 04/04/23 12:17 CT angio chest PE protocol Stat Chest X-Ray 04/04/23 08:25 XR chest 1V portable HISTORY: Chest pain, nonspecific COMPARISON: Chest 03/02/2023. FINDINGS: Emphysema. No pneumothorax. No pleural effusions. Increased markings at the lung bases is likely due to vascular crowding from the emphysema. However, there is progressive interstitial thickening within the right lower lung zone.. No evidence for pulmonary edema. The heart is normal in size. No acute fractures. IMPRESSION: 1. Emphysema. 2. Progressive interstitial thickening within the right lower lung zone. This could be due to vascular crowding from the advanced emphysema. A low-grade pneumonitis would be difficult to exclude. ACT 112: Negative or not required by law. Electronically signed by: Tevin Silva M.D. 04/04/2023 8:45 AM Chest CTA 04/04/23 12:17 CT ANGIOGRAM OF THE CHEST CLINICAL HISTORY: Atypical chest pain. Hypoxia. COMPARISON STUDY: Chest x-ray dated 04/04/2023. Chest CT dated 08/18/2019. TECHNIQUE: Following the IV administration of 100 cc of Optiray 320, CT angiogram of the chest was performed from the upper abdomen to the thoracic inlet utilizing the pulmonary embolus protocol. Images are reviewed in the axial, sagittal, and coronal planes. 3-D MIPS images are created and assessed. IV contrast was administered without complication. A dose lowering technique was utilized adhering to the principles of ALARA. CT DOSE: 750.18 mGy.cm FINDINGS: Thyroid: Imaged portions of the thyroid gland are normal in size and attenuation. Thoracic aorta: There is mild atherosclerotic calcification of the thoracic aorta. There is mild aneurysmal dilatation of the ascending thoracic aorta which measures up to 4.2 cm in diameter. The remainder of the thoracic aorta is normal in caliber, and the arch demonstrates standard 3-vessel anatomy. No dissection is seen. Pulmonary vasculature: The pulmonary trunk is normal in caliber. There are no filling defects identified in main, lobar, or segmental pulmonary branches to suggest pulmonary embolus. Heart: The heart is normal in size and without pericardial effusion. The coronary arteries are densely calcified. Lungs and pleural spaces: There is advanced emphysema. The trachea and central airways are clear. Foci of parenchymal scarring are seen throughout both lungs. Airspace consolidation is noted at the right lung base. There is trace right pleural effusion. Mild patchy airspace opacities are also seen in the right middle lobe. Linear scarlike opacities in the right upper lobe on image #202 measure up to 2.0 cm. A 1.0 cm spiculated nodule is seen in the left lower lobe on image #144. This is new from 08/18/2019. There is diffuse bronchial wall thickening with mucous plugging/secretions in the lower lobe airways. Mediastinum: There is no mediastinal lymphadenopathy. Elisabet: Clear. Axillae: There is no axillary lymphadenopathy. Upper abdomen: Cholecystectomy clips are noted. There is a small hiatal hernia. Partially visualized upper abdominal viscera is otherwise grossly unremarkable. Skeletal structures: The skeletal structures are osteopenic. No lytic or blastic bony lesions are seen. IMPRESSION: 1. There is no evidence of pulmonary embolus in the main, lobar, or segmental pulmonary arteries. 2. There is a 10 mm spiculated nodule in the left lower lobe. This is pathologically indeterminant, and although this could potentially be inflammatory the appearance is highly suspicious for a pulmonary neoplasm. Out patient follow-up with pulmonology is recommended, as is a follow-up chest CT in 1 to 2 months time for reevaluation. 3. Right basilar consolidation and trace right pleural effusion. This likely rep resents pneumonia/aspiration pneumonitis. Clinical correlation will be required. Follow-up to resolution is recommended. 4. Irregular linear scarlike opacities in the right upper lobe were also not seen in 2020. This should also be reassessed at follow-up. 5. There is mild aneurysmal dilatation of the ascending thoracic aorta which measures up to 4.2 cm. 6. Advanced coronary artery atherosclerosis. 7. Additional findings as above. ACT 112: Positive. There are findings on this exam that require communication between the performing entity and the patient following Patient Test Result Information Act ([place] Act 112) guidelines. Electronically signed by: Jad Monson M.D. 04/04/2023 1:41 PM Pending Results Patient Have Any Pending Studies at Discharge: Yes Discharge Instructions Given to Patient (Per Discharging Provider) Mr. Guthrie, You were treated for a pneumonia while you were here. We treated you with broad spectrum IV antibiotics while you were here. Your sputum culture results are not back to help us know what oral antibiotics to discharge you with, and you are anxious to get home. Will discharge you with the oral antibiotics Levofloxacin and doxycycline for five more days and if we need to make changes to your antibiotics based on the results from the sputum culture we will contact you by telephone. If you do not hear from us, then you just continue with the antibiotics you are prescribed. Your primary care provider will also have the results and will ensure that you received the correct antibiotics. You are scheduled to follow up with Dr. Alberto on 04/11. Please keep that appointment as scheduled. We are also discharging you with the medication prednisone for 5 more days as well. Please continue taking your home inhalers. 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 You will need to follow-up for a repeat CT in 6 to 8 weeks with outpatient Pulmonology. There was concern that you might be silently aspirating and we are recommending outpatient follow up for a video swallow as well. It was a pleasure taking care of you during your time here! Total Time Total Time Spent Total Time Spent (In Minutes): > 30 minutes
--- NOTE | 2023-04-11 17:21 | Coding Query ---
CODING QUERY To promote full compliance with coding requirements relating to patient care, provider participation is requested in all cases of quality assurance specialist uncertainty. Please assist us with the question(s) below: Coding Question(s): Pt admitted with COPD exacerbation. Pulmonary consulted and documented Aspiration Pneumonia with possible silent aspiration. Outpatient swallowing studies ordered. Please check below the pnwumonia that was treated during this Inpatient stay. Thank you. Valdo Coffman, [facility]. Physician's Response(s): Pneumonia, unspecified, was treated and Present on admission ___x Aspiration pneumonia was treated and Present on admission Other: Please document: Principal Diagnosis: "that condition established after study, to be chiefly responsible for occasioning the admission of the patient to the hospital for care." Co-Existing Principal Diagnosis: "when two or more diagnoses equally meet the criteria for principal diagnosis as determined by the circumstances of admission, diagnostic work up, and/or therapy provided, and the Alphabetic Index, Tabular List, or another coding guideline does not provide sequencing direction, any one of the diagnoses may be sequenced first." "When the physician has documented what appears to be a current diagnosis in the body of the record, but has not included the diagnosis in the final diagnostic statement, the physician should be asked whether the diagnosis should be added." (Source [facility]oding [facility] 2 QTR90. p3-4) AMALIAD
== END 2023-04-07 10:59 | disposition home or self-care (01) | DRG 177 ==
LOC: ED 08:10 → SUATTDRO 11:42 → 2S 11:42

== ENCOUNTER 2025-03-24 09:39 | Observation (INO) ==
[2025-03-24] MEDS: ALBUT/IPRATROP 3MG/0.5MG NEB 3 ML VIAL NEB STA (09:53)
--- NOTE | 2025-03-24 09:54 | Emergency Department Note ---
History of Present Illness General Chief complaint: Shortness of Breath/Dyspnea Stated complaint: SOB, LOW PULSE OX Time Seen by Provider: 03/24/25 09:40 History of Present Illness This is a 80-year-old male with history of COPD that returns to the ED per my recommendation via private vehicle with complaints of "shortness of breath, low pulse ox". The patient was seen here in the ED yesterday for evaluation of dyspnea, cough, rhinorrhea referred by local urgent care noting bigeminy as well. There was no syncope, lightheadedness or dizziness. The patient has had nasal congestion for the past 2 days. However also notes increase in his baseline shortness of breath. The patient called into the ED today noting that his prednisone prescription sent yesterday cannot be filled until 4 PM today by pharmacy. However on the phone, when I spoke with the patient discussing the prescription he notes that his O2 sat was 85%, then 90%, then 80%. I recommended he return here for further assessment noting the recent rhinovirus infection identified yesterday in the setting of COPD and now worsening O2 sat. Home Medications Medication Instructions Recorded Confirmed Type aspirin 81 mg tablet,delayed 81 mg PO QAM 07/19/19 03/24/25 History release atorvastatin 80 mg tablet (Lipitor) 80 mg PO QAM 07/19/19 03/24/25 History omeprazole 20 mg capsule,delayed 20 mg PO QAM 07/19/19 03/24/25 History release [id number]-ml-lohbp 300 mcg-K 60 1 tab PO QAM 08/29/19 03/24/25 History mcg-lycop 600 mcg-lutein 300 mcg tablet (Centrum Silver Ultra Men's) ipratropium bromide 21 mcg (0.03 2 spray intranasal BID 12/22/21 03/24/25 History %) nasal spray metoprolol succinate 25 mg 25 mg PO QAM 12/22/21 03/24/25 History tablet,extended release 24 hr fluticasone fur. 100 mcg-umeclid 1 inh inhalation DAILY 02/26/23 03/24/25 History 62.5 mcg-vilant 25 mcg inhalat.powder (Trelegy Ellipta) olmesartan 20 mg tablet 20 mg PO QAM 02/26/23 03/24/25 History albuterol sulfate 90 mcg/actuation 3 inh inhalation Q6H #18 grams 09/02/24 03/24/25 Rx aerosol inhaler cetirizine 10 mg tablet (Zyrtec) 10 mg PO DAILY 03/23/25 03/24/25 History dextromethorphan-guaifenesin ER 60 1 tab PO Q12H 03/23/25 03/24/25 History mg-1,200 mg tab,extend release,12hr (Mucinex DM) Allergies Allergy/AdvReac Type Severity Reaction Status Date / Time Sulfa (Sulfonamide Allergy Unknown TOLD A Verified 03/23/25 15:06 Antibiotics) CHILD TO NOT USE Past Med/Surg History Problem List (Updated 03/24/25 @ 12:51 by Agustin Burdick PA-C) Acute hypoxic respiratory failure (Acute) Acute bronchitis due to Rhinovirus (Acute) COPD with acute exacerbation (Acute) Cough (Acute) Rhinovirus infection (Acute) Essential tremor Left lower lobe pulmonary nodule Aspiration pneumonia Dyslipidemia Sleep apnea WEARS 2L AT HS, unable to tolerate CPAP COPD exacerbation Cough (Acute) S/P cholecystectomy (02/27/23) Laparoscopic converted to Open Cholecystectomy with Cholangiogram(Not Applicable) - Jhon Platt MD, FACS Hx of pulmonary embolus Preoperative cardiovascular examination Acute cholecystitis Encounter for pre-operative examination Pulmonary embolism (Acute) Hypoxia (Acute) COPD (chronic obstructive pulmonary disease) CAD (coronary artery disease) Delayed surgical wound healing (Acute) Anemia Nocturnal hypoxia Surgical wound, non healing (Acute) Medical History Arthritis Cecal volvulus HX GERD (gastroesophageal reflux disease) Myocardial Infarction 2003 On home oxygen therapy WEARS 2L HS FOR SLEEP APNEA Thoracic aortic aneurysm BEING MONITORED CAD S/P percutaneous coronary angioplasty with stent placement>2003 COPD (chronic obstructive pulmonary disease) Hemorrhoids, internal with ligation in 06/2010 Surgical History S/P right cataract extraction History of colonoscopy H/O abdominal surgery "ABDOMINAL RECONSTRUCTION/MESH INSERTED" 2020 AT [place] History of tooth extraction History of heart artery stent 1 SENT PLACED 2003 ([facility]) >FOLLOWS WITH DR. WARREN S/P partial colectomy 07/20/2019, with anastomosis History of exploratory laparotomy 07/20/2019-ileocecectomy, stapled side to side ileocolostomy, post op ileus. 08/03/2019-back to OR for ex lap, lysis of adhesions, and decompressive enterotomy. H/O hernia repair One surgery age 18 (right side), then another hernia repair to fix this area in 1997. Family History Other Melanoma No family history of adverse response to anesthesia Social History Smoking Status: Former smoker Tobacco Type: Cigarettes Second Hand Exposure: Yes (as a child); Do You Dip or Chew Tobacco: No; Hx Alcohol Use: Yes Alcohol type: wine Hx Substance Use: No Preferred Language: Tuvaluan Communication Ability: Effective Visual Impairment: No Limitations Graduate Student Required: No Beliefs That Will Affect Care: None marital status: Current Living Situation: Spouse Feels Safe at Home: Yes Assistive Devices: Oxygen - at Night and Walker Review of Systems A total of 10 systems reviewed and were otherwise negative Physical Exam Vital Signs Vital Signs - 24 hr 03/24/25 09:40 03/24/25 09:40 03/24/25 09:43 Temperature 36.8 C Temperature Source Temporal Artery Scan Pulse Rate 53 L Pulse Rate [Radial] Pulse Rate from SpO2 Sensor Respiratory Rate 16 Respiratory Effort / Characteristics Non-Labored Spontaneous Blood Pressure 142/88 H Blood Pressure [Left Arm] Blood Pressure Mean 106 Blood Pressure Mean [Left Arm] Blood Pressure Position Sitting Pulse Oximetry 89 L Oxygen Delivery Method Room Air Room Air Room Air Sepsis Recent Fever Within 48 Hours No Sepsis New/Unexplained Change in Mental Status N/A Sepsis Action Taken by Nursing No Action Required 03/24/25 09:54 03/24/25 09:55 03/24/25 10:03 Temperature Temperature Source Pulse Rate 68 97 H Pulse Rate [Radial] Pulse Rate from SpO2 Sensor 72 Respiratory Rate 16 Respiratory Effort / Characteristics Blood Pressure 114/77 118/71 Blood Pressure [Left Arm] Blood Pressure Mean 87 86 Blood Pressure Mean [Left Arm] Blood Pressure Position Pulse Oximetry 99 Oxygen Delivery Method Room Air Sepsis Recent Fever Within 48 Hours Sepsis New/Unexplained Change in Mental Status Sepsis Action Taken by Nursing 03/24/25 10:13 03/24/25 10:30 03/24/25 10:48 Temperature Temperature Source Pulse Rate 75 70 Pulse Rate [Radial] 72 Pulse Rate from SpO2 Sensor 43 L 60 Respiratory Rate 22 11 L 15 Respiratory Effort / Characteristics Blood Pressure 121/78 127/73 Blood Pressure [Left Arm] 118/71 Blood Pressure Mean 92 91 Blood Pressure Mean [Left Arm] 86 Blood Pressure Position Pulse Oximetry 95 94 89 L Oxygen Delivery Method Room Air Room Air Room Air Sepsis Recent Fever Within 48 Hours Sepsis New/Unexplained Change in Mental Status Sepsis Action Taken by Nursing 03/24/25 11:06 03/24/25 11:21 Temperature Temperature Source Pulse Rate 87 71 Pulse Rate [Radial] Pulse Rate from SpO2 Sensor 73 56 L Respiratory Rate 17 20 Respiratory Effort / Characteristics Blood Pressure 114/76 Blood Pressure [Left Arm] Blood Pressure Mean 88 Blood Pressure Mean [Left Arm] Blood Pressure Position Pulse Oximetry 91 92 Oxygen Delivery Method Room Air Room Air Sepsis Recent Fever Within 48 Hours Sepsis New/Unexplained Change in Mental Status Sepsis Action Taken by Nursing VITAL SIGNS - Vital signs and nursing notes were reviewed. Stable and afebrile. GENERAL - 80-year-old female appearing male stated age who is in no acute distress. Communicates well with provider and answers questions appropriately. SKIN - Without rashes. HEAD - NC/AT. EYES - PERRL with EOMI bilaterally. Sclera anicteric. EARS - No deformities of external structures noted on gross examination bilaterally. NOSE - Midline and without cyanosis. No epistaxis or purulent drainage noted. MOUTH/OROPHARYNX - Without perioral cyanosis. NECK - Neck with FROM. No nuchal rigidity. LUNGS -Mildly diminished breath sounds, no crackles. No wheeze. CARDIAC - RRR EXTREMITIES - +5/5 strength noted in UE/LE bilaterally. NEUROLOGIC - Cranial nerves II through XII grossly intact. PSYCH - Alert, oriented and pleasant on exam Course Administered Medications Discontinued Medications Albuterol (Albut/Ipratrop 3mg/0.5mg Neb 3 Ml Vial) 3 ml NEB NOW STA; Protocol Stop: 03/24/25 09:51 Last Admin: 03/24/25 09:53 Dose: 3 ml Documented By: STEPHANIE Methylprednisolone (Methylprednisolone 125 Mg/2 Ml Vial) 40 mg IV NOW STA Stop: 03/24/25 09:51 Last Admin: 03/24/25 09:55 Dose: 40 mg Documented By: STEPHANIE Medical Decision Making Laboratory Data 03/24/25 10:04 03/24/25 10:04 Lab Results 03/24/25 03/24/25 Range/Units 10:04 10:12 WBC 8.62 (4.8-10.8) K/ul RBC 4.85 (4.70-6.10) M/uL Hgb 15.1 (14.0-18.0) g/dl POC Hgb 16.0 (14.0-18.0) g/dl Hct 45.4 (42.0-52.0) % POC Hct 47 (42-52) % MCV 93.6 (80.0-100.0) fL MCH 31.1 (25.0-34.0) pg MCHC 33.3 (32.0-36.0) g/dL RDW Std Deviation 44.0 (36.4-46.3) fL RDW Coeff of Beata 12.8 (11.5-14.5) % Plt Count 227 (130-400) K/uL MPV 10.9 (9.4-12.4) fL Immature Gran % (Auto) 0.1 % Neut % (Auto) 59.8 % Lymph % (Auto) 26.9 % [place] % (Auto) 12.3 % Eos % (Auto) 0.7 % Baso % (Auto) 0.2 % Neut # (Auto) 5.15 (1.40-6.50) K/uL Lymph # (Auto) 2.32 (1.20-3.40) K/uL [place] # (Auto) 1.06 H (0.11-0.59) K/uL Eos # (Auto) 0.06 (0.00-0.50) K/uL Baso # (Auto) 0.02 (0.00-0.20) K/uL Immature Gran # (Auto) 0.01 (0.01-0.20) K/uL POC Sodium 138 (135-144) mmol/L Sodium 136 (136-145) mmol/L POC Potassium 4.2 (3.3-5.0) mmol/L Potassium 4.1 (3.5-5.1) mmol/L POC Chloride 102 (101-112) mmol/L Chloride 101 (98-107) mmol/L Carbon Dioxide 24 (21-32) mmol/L POC Total CO2 24 (24-31) mmol/L Anion Gap 11 (3-11) POC Anion Gap 18.0 (16-25) mmol/L POC BUN 21 H (7-18) mg/dl BUN 19 (6-23) mg/dl Creatinine 1.07 (0.6-1.4) mg/dl POC Creatinine 1.2 (0.6-1.3) mg/dl Est Cr Clr Drug Dosing 60.6 ml/min eGFR 71.03 BUN/Creatinine Ratio 17.8 (10-20) Glucose 93 (70-99(Fasting)) mg/dl POC Glucose (other) 94 (70-99) mg/dl Calcium 9.3 (8.6-10.3) mg/dl POC Ioniz Calcium Nick 1.16 (1.12-1.32) mmol/l Total Bilirubin 0.4 D (0.2-1.0) mg/dl AST 17 (13-39) U/L ALT 13 (7-52) U/L Alkaline Phosphatase 73 (34-104) U/L Troponin I High Sens 4.8 (0-20) pg/ml Total Protein 7.4 (6.0-8.3) gm/dl Albumin 4.0 (3.4-5.0) gm/dl Globulin 3.4 (2.5-4.0) gm/dl Albumin/Globulin Ratio 1.2 (0.9-2) Imaging Data Radiologist's Impression: Chest X-Ray 03/24/25 09:49 SINGLE VIEW CHEST CLINICAL HISTORY: Hypoxia. FINDINGS: 2 AP, portable, upright chest radiographs are compared to study dated 03/23/2025 and correlated with chest CT dated 09/02/2024. The heart is enlarged noting atherosclerotic calcification of the thoracic aorta. The pulmonary vasculature is noncongested. Enlargement of the central pulmonary vessels suggests pulmonary artery hypertension. Advanced emphysema and chronic interstitial thickening is similar to previous. Bullous change is noted at the apices. Foci of parenchymal scarring are seen throughout both lungs. No airspace consolidation or large pleural effusion is identified. No pneumothorax is seen. The skeletal structures are osteopenic. The bony thorax is grossly intact. Cholecystectomy clips are noted in the upper abdomen. IMPRESSION: 1. Cardiomegaly and advanced emphysema with no acute cardiopulmonary abnormality identified. 2. The suspicious right apical pulmonary nodule seen by CT on 08/06/2024 is not visualized on x-ray. Outpatient pulmonology follow-up is recommended. ACT 112: Negative or not required by law. Electronically signed by: Jad Monson M.D. 03/24/2025 10:12 AM MDM Narrative Patient was seen and evaluated as above in room A2. Review was performed of nursing notes and vital signs. I did review pertinent previous visits and patient history. After obtaining a thorough history and physical examination the above work up was performed. I did see the patient yesterday during his visit. Plan at that time was a discharge home with close return precautions per patient's wishes. However, patient did call in today and was noted to be hypoxic and recommended to return. On my assessment the patient is mildly hypoxic in triage. Mild increased work of breathing that has worsened compared to yesterday. Patient has a history of COPD. He was recently diagnosed with rhinovirus. Patient notes that he was saturating between 80 and 90 at home when I spoke with him as it was previously 85 he notes that 90 and then 80 when I was talking with him/he called into the ED. Options of care were discussed with the patient. EKG reveals sinus rhythm with frequent PVCs at a rate of 81 bpm. QTc 492. QRS is 138. A chest x-ray was obtained and as above. This was essentially unchanged compared to yesterday. Patient medicated with IV steroids, IV DuoNeb. Labs reveal no leukocytosis or concerning anemia. No emergent metabolic disturbance. Troponin returned within normal range making ACS less likely. Noting the patient's hypoxia I do believe that further evaluation and management in the inpatient setting is warranted. Case discussed with the hospitalist service. Please refer to further documentation regarding his stay. GCS: 15 In the evaluation and treatment of this patient the following differential diagnoses were entertained: Pneumonia, COPD exacerbation, viral URI, PE, among others. Impression & Plan COPD with acute exacerbation, Acute bronchitis due to Rhinovirus, Acute hypoxic respiratory failure Discharge Plan Visit Data Chief Complaint: Shortness of Breath/Dyspnea Stated Complaint: SOB, LOW PULSE OX ED Provider: Kavon Smith ED Midlevel Provider: Agustin Burdick Discharge Problem: COPD with acute exacerbation, Acute bronchitis due to Rhinovirus, Acute hypoxic respiratory failure Patient Disposition: Admitted As Inpatient Condition: Good Forms Stand Alone Forms: My [employer] Prescriptions Prescriptions: No Action Centrum Silver Ultra Men's 300-600-300 mcg tablet 1 tab PO QAM atorvastatin [Lipitor] 80 mg tablet 80 mg PO QAM aspirin 81 mg Tablet,Delayed Release (Dr/Ec) 81 mg PO QAM omeprazole 20 mg capsule,delayed release(DR/EC) 20 mg PO QAM metoprolol succinate 25 mg Tablet Extended Release 24 Hr 25 mg PO QAM ipratropium bromide 21 mcg (0.03 %) [place],Non-Aerosol 2 spray INTRANASAL BID Rx Instructions: administer into each nostril Trelegy Ellipta 100-62.5-25 mcg Blister With Device 1 inh INHALATION DAILY olmesartan 20 mg Tablet 20 mg PO QAM albuterol sulfate 90 mcg/actuation HFA aerosol inhaler 3 inh inhalation Q6H Qty: 18 2RF cetirizine [Zyrtec] 10 mg Tablet 10 mg PO DAILY dextromethorphan-guaifenesin [Mucinex DM] 60-1,200 mg Tablet Extended Release 12 Hr 1 tab PO Q12H Referrals Referrals: Delmar Alberto MD [Primary Care Provider] -
--- NOTE | 2025-03-24 10:15 | XRay Report ---
SINGLE VIEW CHEST CLINICAL HISTORY: Hypoxia. FINDINGS: 2 AP, portable, upright chest radiographs are compared to study dated 03/23/2025 and correl ated with chest CT dated 09/02/2024. The heart is enlarged noting atherosclerotic calcification of the thoracic aorta. The pulmonary vasculature is noncongested. Enlargement of the central pulmonary vess els suggests pulmonary artery hypertension. Advanced emphysema and chronic interstitial thickening is similar to previous. Bullous change is noted at the apices. Foci of parenchymal scarring are seen th roughout both lungs. No airspace consolidation or large pleural effusion is identified. No pneumothor ax is seen. The skeletal structures are osteopenic. The bony thorax is grossly intact. Cholecystectom y clips are noted in the upper abdomen. IMPRESSION: 1. Cardiomegaly and advanced emphysema with no acute cardiopulmonary abnormality identified. 2. The suspicious right apical pulmonary nodule seen by CT on 08/06/2024 is not visualized on x-ray. Ou tpatient pulmonology follow-up is recommended. ACT 112: Negative or not required by law. Electronically signed by: Jad Monson M.D. 03/24/2025 10:12 AM
[2025-03-24 10:23] LABS: Hematocrit (blood only) 45.4 % (42.0-52.0); Hemoglobin 15.1 g/dl (14.0-18.0); Immature Granulocytes # (auto) 0.01 K/uL (0.01-0.20); Immature Granulocytes % (auto) 0.1 %; Mean Corpuscular Hemoglobin 31.1 pg (25.0-34.0); Mean Corpuscular Volume 93.6 fL (80.0-100.0); Platelet Count 227 K/uL (130-400); RDW Standard Deviation 44.0 fL (36.4-46.3); Red Blood Count 4.85 M/uL (4.70-6.10); White Blood Count 8.62 K/ul (4.8-10.8)
--- NOTE | 2025-03-24 11:00 | History & Physical Report ---
Date of Service March 24, 2025 Assessment & Plan (1) Acute bronchitis due to Rhinovirus: (2) Acute hypoxic respiratory failure: (3) COPD with acute exacerbation: (4) Sleep apnea: (5) Nocturnal hypoxia: Plan Patient 80-year-old gentleman with known COPD and chronic nocturnal hypoxia presents to the ED with acute hypoxic respiratory failure in the setting of rhinovirus bronchitis and having failed outpatient trial of care. Patient is at risk for further hypoxia and deterioration. Requires hospital level care and monitoring Observed in the MedSurg unit Oxygen as needed to maintain O2 sat 89% or greater Continue oral steroids Scheduled DuoNebs along with as needed nebulizers Continue home medications as ordered Mucolytics and antitussives Consult case management for possible additional home oxygen support and home nebulizer Two-step home oxygen evaluation in a.m. Anticipate patient may be ready for discharge tomorrow with or without home oxygen and additional home support with nebulizer. Would recommend a total of 5 days of steroids. His steroid burst started on 03/23/2025. History of Present Illness Chief Complaint: Cough, shortness of breath, hypoxia Primary Care Provider: Delmar Alberto MD Patient is a 80-year-old gentleman with known COPD/emphysema and chronic nocturnal hypoxia returns to the emergency department today after being diagnosed with rhinovirus bronchitis yesterday due to hypoxia observed at home. Patient had been struggling with upper respiratory infection symptoms all week. Was initially seen in urgent care yesterday and referred to the ED. In the emergency department yesterday diagnosed with rhinovirus. He received nebulizer treatments in the ED and his oxygen saturations were adequate and was given a trial of therapy at home. Patient called back into the ED today stating that they could not get the steroids until later this afternoon. Also reported that he was seeing oxygen saturations on home monitoring in the mid 80s. It was recommended that he return to the emergency room for admission. In the emergency room after nebulizer treatment, O2 sat was in the low 90s but he was still apparently short of breath and a little dyspneic with activity. Time of my evaluation patient was resting comfortably on room air, oxygen saturation 92%. He did state admit to the upper respiratory infection symptoms with cough and congestion for the past week. is at the bedside and confirms a history. He denies any real significant fevers. No purulent sputum. No chest pain. No nausea vomiting. No new problems with his bowels or bladder. He states he been eating and drinking well. No new swelling in his hands arms legs or feet. He reports that he does wear 2 L of oxygen at nighttime in place of his CPAP. Never has needed oxygen during the day. He does not have a home nebulizer unit. Allergies Allergy/AdvReac Type Severity Reaction Status Date / Time Sulfa (Sulfonamide Allergy Unknown TOLD A Verified 03/23/25 15:06 Antibiotics) CHILD TO NOT USE Home Medications Medication Instructions Recorded Confirmed Type aspirin 81 mg tablet,delayed 81 mg PO QAM 07/19/19 03/23/25 History release atorvastatin 80 mg tablet (Lipitor) 80 mg PO QAM 07/19/19 03/23/25 History omeprazole 20 mg capsule,delayed 20 mg PO QAM 07/19/19 03/23/25 History release zscdqoto-td-rlnne 300 mcg-K 60 1 tab PO QAM 08/29/19 03/23/25 History mcg-lycop 600 mcg-lutein 300 mcg tablet (Centrum Silver Ultra Men's) ipratropium bromide 21 mcg (0.03 2 spray intranasal BID 12/22/21 03/23/25 History %) nasal spray metoprolol succinate 25 mg 25 mg PO QAM 12/22/21 03/23/25 History tablet,extended release 24 hr fluticasone fur. 100 mcg-umeclid 1 inh inhalation DAILY 02/26/23 03/23/25 History 62.5 mcg-vilant 25 mcg inhalat.powder (Trelegy Ellipta) olmesartan 20 mg tablet 20 mg PO QAM 02/26/23 03/23/25 History albuterol sulfate 90 mcg/actuation 3 inh inhalation Q6H #18 grams 09/02/24 03/23/25 Rx aerosol inhaler cetirizine 10 mg tablet (Zyrtec) 10 mg PO DAILY 03/23/25 03/23/25 History dextromethorphan-guaifenesin ER 60 1 tab PO Q12H 03/23/25 03/23/25 History mg-1,200 mg tab,extend release,12hr (Mucinex DM) prednisone 20 mg tablet 40 mg (2 x 20 mg) PO DAILY 4 days 03/23/25 Rx #8 tabs Past Med/Surg History Problem List (Updated 03/24/25 @ 10:58 by Andreas Matias DO) Acute hypoxic respiratory failure Acute bronchitis due to Rhinovirus COPD with acute exacerbation (Acute) Cough (Acute) Rhinovirus infection (Acute) Essential tremor Left lower lobe pulmonary nodule Aspiration pneumonia Dyslipidemia Sleep apnea WEARS 2L AT HS, unable to tolerate CPAP COPD exacerbation Cough (Acute) S/P cholecystectomy (02/27/23) Laparoscopic converted to Open Cholecystectomy with Cholangiogram(Not Applicable) - Jhon Platt MD, FACS Hx of pulmonary embolus Preoperative cardiovascular examination Acute cholecystitis Encounter for pre-operative examination Pulmonary embolism (Acute) Hypoxia (Acute) COPD (chronic obstructive pulmonary disease) CAD (coronary artery disease) Delayed surgical wound healing (Acute) Anemia Nocturnal hypoxia Surgical wound, non healing (Acute) Medical History Arthritis Cecal volvulus HX GERD (gastroesophageal reflux disease) Myocardial Infarction 2004 On home oxygen therapy WEARS 2L HS FOR SLEEP APNEA Thoracic aortic aneurysm BEING MONITORED CAD S/P percutaneous coronary angioplasty with stent placement>2003 COPD (chronic obstructive pulmonary disease) Hemorrhoids, internal with ligation in 06/2010 Surgical History S/P right cataract extraction History of colonoscopy H/O abdominal surgery "ABDOMINAL RECONSTRUCTION/MESH INSERTED" 2020 AT [place] History of tooth extraction History of heart artery stent 1 SENT PLACED 2003 ([facility]) >FOLLOWS WITH DR. WARREN S/P partial colectomy 07/20/2019, with anastomosis History of exploratory laparotomy 07/20/2019-ileocecectomy, stapled side to side ileocolostomy, post op ileus. 08/03/2019-back to OR for ex lap, lysis of adhesions, and decompressive enterotomy. H/O hernia repair One surgery age 18 (right side), then another hernia repair to fix this area in 1997. Family History Other Melanoma No family history of adverse response to anesthesia Social History Smoking Status: Former smoker Tobacco Type: Cigarettes Second Hand Exposure: Yes (as a child); Do You Dip or Chew Tobacco: No; Hx Alcohol Use: Yes Alcohol type: wine Hx Substance Use: No Preferred Language: [place] Communication Ability: Effective Visual Impairment: No Limitations Log Deck Tender Required: No Beliefs That Will Affect Care: None marital status: Current Living Situation: Spouse Feels Safe at Home: Yes Assistive Devices: Oxygen - at Night and Walker Review of Systems Review of Systems: Pertinent positive and negative review of systems as mentioned in the HPI Physical Exam Physical Exam: Constitutional: Alert, mildly ill in appearance, nontoxic HEENT: Mucous membranes moist. Sclera clear Neck: Soft, no adenopathy Lungs: Decreased breath sounds, prolonged expiratory phase, poor airflow, no wheezes or rhonchi, mild tachypnea at rest CV: S1-S2, regular Abdomen: Soft, nontender, nondistended Extremities: No significant edema Musculoskeletal: No significant joint tenderness Neuro: No focal deficits Psych: Cooperative, normal mood Results & Data Results & Data Vital Signs (Past 12 Hours) Vital Signs Temp Pulse Pulse Resp BP BP Pulse Ox 03/24/25 10:13 72 22 118/71 95 03/24/25 09:54 68 03/24/25 09:43 36.8 C 53 L 16 142/88 H 89 L 03/24/25 09:40 03/24/25 09:40 O2 Del Method 03/24/25 10:13 Room Air 03/24/25 09:54 03/24/25 09:43 Room Air 03/24/25 09:40 Room Air 03/24/25 09:40 Room Air Diagnostic Findings Reviewed imaging, laboratory and diagnostic studies. Pertinent findings as below. Personally reviewed chest x-ray, no consolidative infiltrate or evidence of edema, hyperinflated lungs CBC is within normal limits Electrolytes within normal limits Creatinine stable EKG personally reviewed, sinus rhythm with PVCs and right bundle branch block. Code Status & VTE Plan VTE Prophylaxis Plan VTE Prophylaxis will be ordered: Yes
[2025-03-24 11:17] LABS: Sodium 136.0 mmol/L (136-145)
[2025-03-24 11:27] LABS: Alanine Aminotransferase 13.0 U/L (7-52); Albumin Globulin Ratio 1.2 (0.9-2); Albumin Level 4.0 gm/dl (3.4-5.0); Alkaline Phosphatase 73.0 U/L (34-104); Anion Gap 11.0 (3-11); Bilirubin,Total 0.4 mg/dl (0.2-1.0); Blood Urea Nitrogen 19.0 mg/dl (6-23); Calcium 9.3 mg/dl (8.6-10.3); Carbon Dioxide 24.0 mmol/L (21-32); Chloride 101.0 mmol/L (98-107); Creatinine Clr Calc Pharmacy 60.6 ml/min; Globulin 3.4 gm/dl (2.5-4.0); Glucose 93.0 mg/dl (70-99(Fasting)); Potassium 4.1 mmol/L (3.5-5.1); Total Protein 7.4 gm/dl (6.0-8.3)
--- NOTE | 2025-03-24 13:19 | Emergency Department Note ---
ED Visit Note I was consulted by the Advanced Practice Provider Agustin Burdick PA-C. I performed a substantive portion of the visit including all aspects of medical decision making. .
[2025-03-24] MEDS ORDERED: ALBUT/IPRATROP 3MG/0.5MG NEB 3 ML VIAL NEB PRN (14:09)
[2025-03-24] MEDS ORDERED: ALUMINUM/MAGNESIUM SUSP 30 ML UDC PO PRN (14:09)
[2025-03-24] MEDS ORDERED: ACETAMINOPHEN 325 MG TAB PO PRN (14:09)
[2025-03-24] MEDS ORDERED: POLYETHYLENE (MIRALAX) 17 GM PACK PO PRN (14:09)
[2025-03-24] MEDS ORDERED: ONDANSETRON INJ 2 MG/ML 2 ML VIAL IV PRN (14:09)
[2025-03-24] MEDS: ALBUT/IPRATROP 3MG/0.5MG NEB 3 ML VIAL INH SCH (15:01)
[2025-03-24] MEDS: ENOXAPARIN INJ 40 MG/0.4 ML SYR SQ SCH (16:36)
--- NOTE | 2025-03-24 19:29 | Electrocardiogram Report ---
Test Reason : Blood Pressure : */* mmHG Vent. Rate : 81 BPM Atrial Rate : 81 BPM P-R Int : 138 ms QRS Dur : 138 ms QT Int : 424 ms P-R-T Axes : 63 64 64 degrees QTcB Int : 492 ms Sinus rhythm with frequent Premature ventricular complexes Right bundle branch block Abnormal ECG When compared with ECG of 23-Mar-2025 12:11, (unconfirmed) No significant change was found Confirmed by Ata Garcia ([id number]) on 03/24/2025 7:28:43 PM Referred By: NO PCP Confirmed By: Ata Garcia
[2025-03-24] MEDS: guaiFENesin 600 MG TABCR PO SCH (20:23)
[2025-03-24] MEDS: IPRATROPIUM BROMIDE NASAL SPRAY 0.03% 30 ML NAE SCH (20:23)
[2025-03-25] MEDS: MELATONIN 3 MG TAB PO PRN (00:01)
[2025-03-25 08:22] VITALS: BP 121/71; TEMP 97.3; O2SAT 97
[2025-03-25] MEDS ORDERED: NON-FORMULARY MEDICATION (Fluticasone-Umeclidin-Vilanter [Trelegy Ellipta] 100-62.5-25 mcg INH SCH (09:00)
[2025-03-25] MEDS: predniSONE 20 MG TAB PO SCH (09:16)
[2025-03-25] MEDS: ATORVASTATIN 40 MG TAB PO SCH (09:16)
[2025-03-25] MEDS: ASPIRIN 81 MG ECTAB PO SCH (09:16)
[2025-03-25] MEDS: CETIRIZINE HCL 10 MG TABLET PO SCH (09:16)
[2025-03-25] MEDS: UMECLIDINIUM/VILANTEROL 62.5/25MCG 7 PUFFS/INHALER INH SCH (09:17)
[2025-03-25] MEDS: LOSARTAN POTASSIUM 50 MG TAB PO SCH (09:17)
[2025-03-25] MEDS: FLUTICASONE FUROATE 100MCG 14 PUFFS/INHALER INH SCH (09:17)
[2025-03-25] MEDS: METOPROLOL SUCC 25MG EXT REL TAB PO SCH (09:17)
[2025-03-25 12:14] VITALS: PULSE 74; RESP 16
--- NOTE | 2025-03-25 17:04 | Discharge Summary ---
Discharge Summary Date of Service March 25, 2025 Principal Dx & Hospital Course #1 = Principal Diagnosis (1) Acute bronchitis due to Rhinovirus: (2) Acute hypoxic respiratory failure: (3) COPD with acute exacerbation: (4) Sleep apnea: (5) Nocturnal hypoxia: Plan Patient 80-year-old gentleman with known COPD and chronic nocturnal hypoxia presents to the ED with acute hypoxic respiratory failure in the setting of rhinovirus bronchitis and having failed outpatient trial of care. Patient is at risk for further hypoxia and deterioration. Requires hospital level care and monitoring Observed in the MedSurg unit Oxygen as needed to maintain O2 sat 89% or greater Continue oral steroids Scheduled DuoNebs along with as needed nebulizers Continue home medications as ordered Mucolytics and antitussives Consult case management for possible additional home oxygen support and home nebulizer Two-step home oxygen evaluation in a.m. Anticipate patient may be ready for discharge tomorrow with or without home oxygen and additional home support with nebulizer. Would recommend a total of 5 days of steroids. His steroid burst started on 03/23/2025. Admission HPI Per Admitting Provider Patient is a 80-year-old gentleman with known COPD/emphysema and chronic nocturnal hypoxia returns to the emergency department today after being diagnosed with rhinovirus bronchitis yesterday due to hypoxia observed at home. Patient had been struggling with upper respiratory infection symptoms all week. Was initially seen in urgent care yesterday and referred to the ED. In the emergency department yesterday diagnosed with rhinovirus. He received nebulizer treatments in the ED and his oxygen saturations were adequate and was given a trial of therapy at home. Patient called back into the ED today stating that they could not get the steroids until later this afternoon. Also reported that he was seeing oxygen saturations on home monitoring in the mid 80s. It was recommended that he return to the emergency room for admission. In the emergency room after nebulizer treatment, O2 sat was in the low 90s but he was still apparently short of breath and a little dyspneic with activity. Time of my evaluation patient was resting comfortably on room air, oxygen saturation 92%. He did state admit to the upper respiratory infection symptoms with cough and congestion for the past week. is at the bedside and confirms a history. He denies any real significant fevers. No purulent sputum. No chest pain. No nausea vomiting. No new problems with his bowels or bladder. He states he been eating and drinking well. No new swelling in his hands arms legs or feet. He reports that he does wear 2 L of oxygen at nighttime in place of his CPAP. Never has needed oxygen during the day. He does not have a home nebulizer unit. Updated Medication List Medication Instructions Recorded Confirmed Type aspirin 81 mg tablet,delayed 81 mg PO QAM 07/19/19 03/24/25 History release atorvastatin 80 mg tablet (Lipitor) 80 mg PO QAM 07/19/19 03/24/25 History omeprazole 20 mg capsule,delayed 20 mg PO QAM 07/19/19 03/24/25 History release vbzlzysy-xr-symmv 300 mcg-K 60 1 tab PO QAM 08/29/19 03/24/25 History mcg-lycop 600 mcg-lutein 300 mcg tablet (Centrum Silver Ultra Men's) ipratropium bromide 21 mcg (0.03 2 spray intranasal BID 12/22/21 03/24/25 History %) nasal spray metoprolol succinate 25 mg 25 mg PO QAM 12/22/21 03/24/25 History tablet,extended release 24 hr fluticasone fur. 100 mcg-umeclid 1 inh inhalation DAILY 02/26/23 03/24/25 History 62.5 mcg-vilant 25 mcg inhalat.powder (Trelegy Ellipta) olmesartan 20 mg tablet 20 mg PO QAM 02/26/23 03/24/25 History albuterol sulfate 90 mcg/actuation 3 inh inhalation Q6H #18 grams 09/02/24 03/24/25 Rx aerosol inhaler cetirizine 10 mg tablet (Zyrtec) 10 mg PO DAILY 03/23/25 03/24/25 History guaifenesin 600 mg tablet, 600 mg PO BID 7 days #14 tabs 03/25/25 Rx extended release 12 hr (Mucinex) ipratropium 0.5 mg-albuterol 3 mg 3 ml inhalation Q6R 7 days #120 mL 03/25/25 Rx (2.5 mg base)/3 mL nebulization soln prednisone 20 mg tablet 40 mg (2 x 20 mg) PO QAM 4 days #8 03/25/25 Rx tabs Hospital Stay Data Consultations 03/24/25 10:27 ED Decision to Admit Stat Pending Results Patient Have Any Pending Studies at Discharge: No Discharge Instructions Given to Patient (Per Discharging Provider) PLEASE REFER TO YOUR NEW MEDICATION LIST AND FOLLOW INSTRUCTIONS CAREFULLY. YOUR NEW MEDICATIONS INCLUDE: Duoneb- nebulizer treatment, 3-4x a day for 7 days - may also every 4 hours as needed for shortness of breath/wheezing Prednisone 40mg po daily x total of 4 days. Mucinex 2x a day for 7 days Continue to use Incentive Spirometer and Flutter valve every 4 hours at home x 1 week. PLEASE CALL YOUR PRIMARY CARE PHYSICIAN OR RETURN TO THE ER IF WITH WORSENING OF SYMPTOMS, INCLUDING shortness of breath, fever/chills, chest pain, etc FOLLOW UP WITH PRIMARY CARE PHYSICIAN IN 1 WEEK.
== END 2025-03-25 12:58 | disposition home or self-care (01) ==
LOC: ED 09:39 → 3E 09:39 → SUATTDRO 10:53 → 3E 13:24